=== PATIENT | female | born 1940 | race Two or more races ===

== ENCOUNTER → 2016-03-16 | Outpatient (CLI) | payer MEDICARE, MEDICAID ==
[~2016-03-16] MED LIST: DICY20TA66 PO; FUR40T GT; IBUP800T24 PO; LEVO88TA4 PO; LIDO5DIS21 TOP; LOSA50TA6 PO; METO-169 PO; OMEP20CA5 OR; POT20T PO; SIMV-8 PO
== END | disposition home or self-care (01) ==
LOC: Rad HDHVI 08:59
PROVIDERS: ATTEND Internal Medicine Cardiovascular Disease
DX: R06.02 Shortness of breath (principal)
CPT/HCPCS: 93306

== ENCOUNTER → 2016-03-26 | Outpatient (CLI) | payer MEDICARE, MEDICAID ==
[~2016-03-26] VITALS: Ht 152.4 cm; Wt 83.9 kg
[~2016-03-26] MED LIST changes: +ADENOSINE 70 MG in GIVE UN-DILUTED 0 ML IV ONE; +ADENOSINE 90 MG/30 ML INJ IV ONE
== END | disposition home or self-care (01) ==
LOC: Rad HDHVI 09:45
PROVIDERS: ATTEND Internal Medicine Cardiovascular Disease
DX: R07.9 Chest pain, unspecified (principal); I10 Essential (primary) hypertension; E78.00 Pure hypercholesterolemia, unspecified; Z95.0 Presence of cardiac pacemaker
CPT/HCPCS: 78452; 93005; 96374; 96375; A9500; J0153

== ENCOUNTER → 2016-05-14 | Outpatient (CLI) | payer MEDICARE, MEDICAID ==
[~2016-05-14] MED LIST changes: -ADENOSINE 70 MG in GIVE UN-DILUTED 0 ML IV ONE; -ADENOSINE 90 MG/30 ML INJ IV ONE
[2016-05-14 12:41] LABS: Basophils # (auto) 0 uL; Basophils % (auto) 0.7 % (0.0-2.0); DEFINITIVE VIEW TRANSMISSION; Eosinophils # (auto) 0.3 uL; Eosinophils % (auto) 5.6 % (0.0-7.0); Hematocrit 37.8 % (36.0-46.0); Hemoglobin 12.3 g/dL (12.2-16.2); Lymphocytes # (auto) 1.7 uL; Lymphocytes % (auto) 29.9 % (10.0-50.0); Mean Corpuscular Hemoglobin 33.6 pg (28.0-32.0); Mean Corpuscular Hgb Conc. 32.6 g/dL (32.0-36.0); Mean Corpuscular Volume 103.1 fL (80.0-100.0); Mean Platelet Volume 10.7 fL (7.4-10.4); Monocytes # (auto) 0.3 uL; Monocytes % (auto) 5.9 % (0.0-12.0); Neutrophils # (auto) 3.2 uL; Neutrophils % (auto) 57.9 % (37.0-80.0); Platelet Count (auto) 207 10^3/uL (140-450); Red Cell Distribution Width 13.3 % (11.6-16.0); White Blood Cell 5.6 10^3/uL (4.4-10.8)
[2016-05-14 12:48] LABS: Urine Bilirubin Negative (Negative); Urine Blood Negative /uL (Negative); Urine Color Yellow (Yellow); Urine Glucose Normal (Normal); Urine Ketone Negative (Negative); Urine Nitrite Negative (Negative); Urine Urobilinogen Normal (Negative); Urine pH 8.5 (5.0-8.0)
[2016-05-14 14:13] LABS: BUN/Creatinine Ratio 20.4; Bilirubin, Total 1.5 mg/dL (0.2-1.0); Calcium 9.4 mg/dL (8.5-10.1); Potassium 4.6 mmol/L (3.5-5.1); Total Protein 7.8 g/dL (6.4-8.2)
[2016-05-14 14:19] LABS: Bilirubin, Direct 0.3 mg/dL (0-0.2)
== END | disposition home or self-care (01) ==
LOC: LAB 08:47
PROVIDERS: ATTEND Internal Medicine Cardiovascular Disease
DX: I10 Essential (primary) hypertension (principal); E78.00 Pure hypercholesterolemia, unspecified; K74.1 Hepatic sclerosis; E11.9 Type 2 diabetes mellitus without complications; E03.9 Hypothyroidism, unspecified; D64.9 Anemia, unspecified; E55.9 Vitamin D deficiency, unspecified; N39.0 Urinary tract infection, site not specified
CPT/HCPCS: 36415; 80048; 80061; 80076; 81003; 82306; 83036; 84443; 85025

== ENCOUNTER → 2016-08-16 | Outpatient (CLI) | payer MEDICARE, MEDICAID ==
[~2016-08-16] VITALS: Ht 152.4 cm; Wt 89.8 kg
[~2016-08-16] MED LIST changes: -OMEP20CA5 OR; +OMEP20CA74 OR
== END | disposition home or self-care (01) ==
LOC: Rad HDHVI 12:53
PROVIDERS: ATTEND Internal Medicine Cardiovascular Disease
DX: I11.0 Hypertensive heart disease with heart failure (principal); I25.10 Atherosclerotic heart disease of native coronary artery without angina pectoris; I50.42 Chronic combined systolic (congestive) and diastolic (congestive) heart failure; E78.00 Pure hypercholesterolemia, unspecified; E55.9 Vitamin D deficiency, unspecified; Z95.0 Presence of cardiac pacemaker
CPT/HCPCS: 78472; 96374; A9505; 96375

== ENCOUNTER → 2016-09-27 | Outpatient (CLI) | payer MEDICARE, MEDICAID | END | disposition home or self-care (01) | LOC: Rad HDHVI 10:16 | PROVIDERS: ATTEND Internal Medicine Cardiovascular Disease | DX: I08.3 Combined rheumatic disorders of mitral, aortic and tricuspid valves (principal); E78.00 Pure hypercholesterolemia, unspecified; I25.5 Ischemic cardiomyopathy | CPT/HCPCS: 93306 ==

== ENCOUNTER → 2016-10-13 | Outpatient (CLI) | payer MEDICARE, MEDICAID ==
[2016-10-13 12:18] LABS: Urine Bilirubin Negative (Negative); Urine Blood Negative /uL (Negative); Urine Color Yellow (Yellow); Urine Glucose Normal (Normal); Urine Ketone Negative (Negative); Urine Nitrite Negative (Negative); Urine Urobilinogen Normal (Negative)
== END | disposition home or self-care (01) ==
LOC: LAB 10:57
PROVIDERS: ATTEND Internal Medicine Cardiovascular Disease
DX: N39.0 Urinary tract infection, site not specified (principal)
CPT/HCPCS: 81003; 87086; 87088; 87186

== ENCOUNTER → 2017-03-11 | Outpatient (CLI) | payer MEDICARE ==
[~2017-03-11] VITALS: Ht 154.9 cm; Wt 86.2 kg
[2017-03-11 12:32] LABS: Basophils # (auto) 0 uL; Eosinophils # (auto) 0.1 uL; Lymphocytes # (auto) 1.7 uL; Mean Corpuscular Hgb Conc. 33.3 g/dL (32.0-36.0); Mean Corpuscular Volume 101.9 fL (80.0-100.0); Monocytes # (auto) 0.4 uL; Neutrophils # (auto) 3.4 uL; Platelet Count (auto) 176 10^3/uL (140-450); Red Cell Distribution Width 12.8 % (11.8-14.3)
[2017-03-11 12:35] LABS: Basophils % (auto) 0.7 % (0.0-2.0); Eosinophils % (auto) 2.6 % (0.0-7.0); Hematocrit 37.7 % (36.0-46.0); Hemoglobin 12.6 g/dL (12.2-16.2); Lymphocytes % (auto) 29.6 % (10.0-50.0); Monocytes % (auto) 6.7 % (0.0-12.0); Neutrophils % (auto) 60.4 % (37.0-80.0); Nucleated Red Blood Cells % 0.2 %; White Blood Cell 5.6 10^3/uL (4.4-10.8)
[2017-03-11 12:59] LABS: Albumin 3.8 g/dL (3.4-5.0); BUN/Creatinine Ratio 26.3; Bilirubin, Total 1.5 mg/dL (0.2-1.0); Calcium 8.6 mg/dL (8.5-10.1); Potassium 4.1 mmol/L (3.5-5.1); Total Protein 7.3 g/dL (6.4-8.2)
== END | disposition home or self-care (01) ==
LOC: Rad HDHVI 07:47
PROVIDERS: ATTEND Internal Medicine Cardiovascular Disease
DX: I11.0 Hypertensive heart disease with heart failure (principal); I50.43 Acute on chronic combined systolic (congestive) and diastolic (congestive) heart failure; I42.0 Dilated cardiomyopathy; D64.9 Anemia, unspecified
CPT/HCPCS: 36415; 78472; 80053; 83880; 85025; 96374; A9505; 96375

== ENCOUNTER → 2017-04-14 | Outpatient (CLI) | payer MEDICARE ==
[~2017-04-14] MED LIST changes: +IOHEXOL 350 MG/ML 100ML IJ ONE
[2017-04-14 12:00] VITALS: BP 145/70
[2017-04-14 12:30] VITALS: BP 150/66
[2017-04-14 16:30] LABS: Urine Blood Negative /uL (Negative); Urine Specific Gravity 1.016 (1.001-1.035)
== END | disposition home or self-care (01) ==
LOC: Rad HDHVI 11:50
PROVIDERS: ATTEND Internal Medicine Cardiovascular Disease
DX: K80.80 Other cholelithiasis without obstruction (principal); N39.0 Urinary tract infection, site not specified; I51.7 Cardiomegaly; J98.11 Atelectasis; K76.0 Fatty (change of) liver, not elsewhere classified; K44.9 Diaphragmatic hernia without obstruction or gangrene; K57.30 Diverticulosis of large intestine without perforation or abscess without bleeding; M47.816 Spondylosis without myelopathy or radiculopathy, lumbar region; Z95.0 Presence of cardiac pacemaker; Z90.710 Acquired absence of both cervix and uterus
CPT/HCPCS: 74177; 81003; 82565; 87086; 87088; 87186; 96374; G0463; Q9967

== ENCOUNTER → 2018-03-13 | Outpatient (CLI) | payer MEDICARE ==
[~2018-03-13] MED LIST changes: +ALBUAER3 IN; +ASPI81TA27 PO; +CHOL50007 PO; +FLUT1SPR5; -FUR40T GT; +FUR40T PO; +HYDR-4683 PO; -IOHEXOL 350 MG/ML 100ML IJ ONE; -LIDO5DIS21 TOP; +LOSA-46 PO; -LOSA50TA6 PO; +OXYB5TAB24 PO; +RANI-185 PO
== END | disposition home or self-care (01) ==
LOC: Rad HDHVI 11:20
PROVIDERS: ATTEND Internal Medicine Cardiovascular Disease
DX: I67.2 Cerebral atherosclerosis (principal)
CPT/HCPCS: 70450

== ENCOUNTER → 2018-05-01 | Outpatient (CLI) | payer MEDICARE ==
[2018-05-01 11:40] VITALS: BP 127/57
--- NOTE | 2018-05-01 11:40 | NUR ---
CHF PT ARRIVED AT [facility] ALERT ORIENTED 0 DISTRESS VS OBTAINED
--- NOTE | 2018-05-01 11:45 | NUR ---
Pre-Op Discharge Summary: See e-MAR for any medications given for this visit. Pre-op orders received and carried out per MD THOMPSON of EKG, LABS and chest xrays. Patient given a copy of EKG with instructions to go to [facility] out patient for further follow up care.
[2018-05-01 12:05] VITALS: BP 116/54
[2018-05-01 12:23] LABS: Potassium 4.1 mmol/L (3.5-5.1)
[2018-05-01 12:30] LABS: BUN/Creatinine Ratio 21.3; Calcium 8.6 mg/dL (8.5-10.1); INR 0.97 (0.9-1.15); Partial Thromboplastin Time 25.2 sec (23.78-33.04); Prothrombin Time 10.4 sec (9.27-12.13)
[2018-05-01 16:50] LABS: Basophils # (auto) 0 uL; Basophils % (auto) 0.7 % (0.0-2.0); Eosinophils # (auto) 0.2 uL; Eosinophils % (auto) 3.7 % (0.0-7.0); Hematocrit 39.7 % (36.0-46.0); Hemoglobin 13.1 g/dL (12.2-16.2); Lymphocytes # (auto) 1.4 uL; Lymphocytes % (auto) 25.9 % (10.0-50.0); Mean Corpuscular Hemoglobin 34.9 pg (28.0-32.0); Mean Corpuscular Hgb Conc. 32.9 g/dL (32.0-36.0); Mean Corpuscular Volume 106.1 fL (80.0-100.0); Monocytes # (auto) 0.4 uL; Monocytes % (auto) 6.8 % (0.0-12.0); Neutrophils # (auto) 3.5 uL; Neutrophils % (auto) 62.9 % (37.0-80.0); Nucleated Red Blood Cells % 0.4 %; Platelet Count (auto) 180 10^3/uL (140-450); Red Blood Cells 3.74 10^6/uL (4.0-5.20); Red Cell Distribution Width 13.3 % (11.8-14.3); White Blood Cell 5.5 10^3/uL (4.4-10.8)
== END | disposition home or self-care (01) ==
LOC: Rad HDHVI 09:57
PROVIDERS: ATTEND Internal Medicine Cardiovascular Disease
DX: Z01.818 Encounter for other preprocedural examination (principal); I11.0 Hypertensive heart disease with heart failure; I50.9 Heart failure, unspecified; D64.9 Anemia, unspecified; R79.1 Abnormal coagulation profile; I42.0 Dilated cardiomyopathy
CPT/HCPCS: 36415; 71046; 80048; 85025; 85610; 85730; 93005; G0463

== ENCOUNTER → 2018-05-12 | Outpatient (CLI) | payer MEDICARE, MEDICAID ==
[2018-05-12 12:00] VITALS: BP 110/64
[2018-05-12 12:27] VITALS: BP 112/50
--- NOTE | 2018-05-12 12:27 | NUR ---
CHF CLINIC Discharge Instructions See e-MAR for any mediations given with this visit. Patient education given on disease process. Patient verbalized understanding. Previous labs reviewed. Patient discharged in stable condition with after care instructions and follow up appointment. NOTE 6MWT DONE AND RESULTS GIVEN TO DR THOMPSON.
== END | disposition home or self-care (01) ==
LOC: CHF HDHVI 11:58
PROVIDERS: ATTEND Internal Medicine Cardiovascular Disease
DX: R06.02 Shortness of breath (principal); R42 Dizziness and giddiness
CPT/HCPCS: 94618; G0463

== ENCOUNTER → 2018-05-19 | Outpatient (CLI) | payer MEDICARE, MEDICAID | END | disposition home or self-care (01) | LOC: Rad HDHVI 10:02 | PROVIDERS: ATTEND Internal Medicine Cardiovascular Disease | DX: I42.0 Dilated cardiomyopathy (principal); I11.0 Hypertensive heart disease with heart failure; I50.23 Acute on chronic systolic (congestive) heart failure | CPT/HCPCS: 93306 ==

== ENCOUNTER → 2018-12-18 | Outpatient (CLI) | payer MEDICARE, MEDICAID ==
[~2018-12-18] MED LIST changes: +ASPI-404 PO; -ASPI81TA27 PO; -HYDR-4683 PO; +HYDR-4833 PO; -LOSA-46 PO; +LOSA-69 PO
[2018-12-18 15:57] LABS: Urine Blood Negative /uL (Negative); Urine Specific Gravity 1.005 (1.001-1.035)
== END | disposition home or self-care (01) ==
LOC: LAB 11:28
PROVIDERS: ATTEND Internal Medicine Cardiovascular Disease
DX: N39.0 Urinary tract infection, site not specified (principal)
CPT/HCPCS: 81003; 87086

== ENCOUNTER → 2018-12-19 | Outpatient (CLI) | payer MEDICARE, MEDICAID ==
[2018-12-19 12:12] LABS: Basophils # (auto) 0 uL; Eosinophils # (auto) 0.1 uL; Monocytes # (auto) 0.4 uL; Neutrophils # (auto) 4.8 uL
[2018-12-19 12:15] LABS: Basophils % (auto) 0.6 % (0.0-2.0); Hemoglobin 12.5 g/dL (12.2-16.2); Lymphocytes # (auto) 1.4 uL; Lymphocytes % (auto) 20.8 % (10.0-50.0); Mean Corpuscular Hemoglobin 34.9 pg (28.0-32.0); Mean Corpuscular Hgb Conc. 32.8 g/dL (32.0-36.0); Mean Corpuscular Volume 106.3 fL (80.0-100.0); Monocytes % (auto) 6.2 % (0.0-12.0); Neutrophils % (auto) 70.4 % (37.0-80.0); Nucleated Red Blood Cells % 0.1 %; Platelet Count (auto) 156 10^3/uL (140-450); Red Blood Cells 3.58 10^6/uL (4.0-5.20); Red Cell Distribution Width 12.4 % (11.8-14.3); White Blood Cell 6.9 10^3/uL (4.4-10.8)
[2018-12-19 12:26] LABS: Potassium 4.5 mmol/L (3.5-5.1)
[2018-12-19 12:28] LABS: Free T4 (Free Thyroxine) 1.24 ng/dL (0.89-1.76)
[2018-12-19 12:35] LABS: Albumin 3.6 g/dL (3.4-5.0); BUN/Creatinine Ratio 16.7; Bilirubin, Total 1.1 mg/dL (0.2-1.0); Calcium 8.8 mg/dL (8.5-10.1); Total Protein 7.4 g/dL (6.4-8.2)
== END | disposition home or self-care (01) ==
LOC: Rad HDHVI 07:54
PROVIDERS: ATTEND Internal Medicine Cardiovascular Disease
DX: I08.3 Combined rheumatic disorders of mitral, aortic and tricuspid valves (principal); E03.9 Hypothyroidism, unspecified; K90.9 Intestinal malabsorption, unspecified; D51.9 Vitamin B12 deficiency anemia, unspecified; I11.0 Hypertensive heart disease with heart failure; I50.23 Acute on chronic systolic (congestive) heart failure; I42.9 Cardiomyopathy, unspecified; Z79.899 Other long term (current) drug therapy
CPT/HCPCS: 36415; 80053; 80061; 82306; 82607; 83036; 84439; 84443; 85025; 93306

== ENCOUNTER → 2019-01-01 | Outpatient (CLI) | payer MEDICARE, MEDICAID | END | disposition home or self-care (01) | LOC: Rad HDHVI 11:34 | PROVIDERS: ATTEND Internal Medicine Cardiovascular Disease | DX: G45.9 Transient cerebral ischemic attack, unspecified (principal); I99.8 Other disorder of circulatory system | CPT/HCPCS: 70450 ==

== ENCOUNTER → 2019-01-03 | Outpatient (CLI) | payer MEDICARE, MEDICAID | END | disposition home or self-care (01) | LOC: Rad HDHVI 08:00 | PROVIDERS: ATTEND Internal Medicine Cardiovascular Disease | DX: I11.0 Hypertensive heart disease with heart failure (principal); I50.32 Chronic diastolic (congestive) heart failure; R00.2 Palpitations; E11.9 Type 2 diabetes mellitus without complications; E78.5 Hyperlipidemia, unspecified; Z90.710 Acquired absence of both cervix and uterus; Z88.5 Allergy status to narcotic agent; Z88.0 Allergy status to penicillin | CPT/HCPCS: 93880 ==

== ENCOUNTER → 2019-03-16 | Outpatient (CLI) | payer MEDICARE, MEDICAID | END | disposition home or self-care (01) | LOC: LAB 12:04 | PROVIDERS: ATTEND Internal Medicine Cardiovascular Disease | DX: R70.0 Elevated erythrocyte sedimentation rate (principal) | CPT/HCPCS: 36415; 85652 ==

== ENCOUNTER → 2019-03-23 | Outpatient (CLI) | payer MEDICARE, MEDICAID ==
[2019-03-23 16:03] LABS: Calcium 9.3 mg/dL (8.5-10.1)
[2019-03-23 16:06] LABS: BUN/Creatinine Ratio 22.2
== END | disposition home or self-care (01) ==
LOC: LAB 13:27
PROVIDERS: ATTEND Internal Medicine Cardiovascular Disease
DX: I10 Essential (primary) hypertension (principal)
CPT/HCPCS: 36415; 80048

== ENCOUNTER 2019-04-21 21:01 | Emergency (ER) | payer MEDICARE, MEDICAID ==
[~2019-04-21] VITALS: Ht 152.4 cm; Wt 83.9 kg
[~2019-04-21 21:01] MED LIST changes: +MAGN400T40 PO; +SACU1TAB PO; +SPIR25TA8 PO
[2019-04-21 22:24] LABS: Basophils # (auto) 0.1 uL; Eosinophils # (auto) 0.1 uL; Eosinophils % (auto) 1.5 % (0.0-7.0); Hematocrit 36.4 % (36.0-46.0); Hemoglobin 12.5 g/dL (12.2-16.2); Lymphocytes # (auto) 1.7 uL; Lymphocytes % (auto) 23.1 % (10.0-50.0); Mean Corpuscular Hemoglobin 35.3 pg (28.0-32.0); Mean Corpuscular Hgb Conc. 34.2 g/dL (32.0-36.0); Mean Corpuscular Volume 103.2 fL (80.0-100.0); Monocytes # (auto) 0.6 uL; Monocytes % (auto) 8.2 % (0.0-12.0); Neutrophils # (auto) 4.8 uL; Neutrophils % (auto) 66.2 % (37.0-80.0); Platelet Count (auto) 204 10^3/uL (140-450); Red Blood Cells 3.53 10^6/uL (4.0-5.20); Red Cell Distribution Width 12.6 % (11.8-14.3); White Blood Cell 7.2 10^3/uL (4.4-10.8)
[2019-04-21 22:39] LABS: INR 1.06 (0.9-1.15); Partial Thromboplastin Time 24.7 sec (23.64-32.05)
[2019-04-21 22:55] LABS: Albumin 3.9 g/dL (3.4-5.0); Anion Gap 7 (5-15); Blood Urea Nitrogen 23 mg/dL (7-18); Calcium 8.6 mg/dL (8.5-10.1); Carbon Dioxide 26 mmol/L (21-32); Chloride 103 mmol/L (98-107); Glucose 105 mg/dL (74-106); Magnesium 2.3 mg/dL (1.6-2.6); Potassium 4.5 mmol/L (3.5-5.1); Sodium 136 mmol/L (136-145)
[2019-04-21 22:56] LABS: Alanine Aminotransferase 24 U/L (13-56); Aspartate Aminotransferase 24 U/L (15-37); BUN/Creatinine Ratio 18.3; GFR African American 53 mL/min; GFR Non-African American 44 mL/min
[2019-04-21 23:13] LABS: Alkaline Phosphatase 76 U/L (45-117); Bilirubin, Total 1.1 mg/dL (0.2-1.0); Total Protein 7.5 g/dL (6.4-8.2)
[2019-04-22 10:34] VITALS: BP 107/51
== END 2019-04-22 10:36 | disposition home or self-care (01) ==
LOC: ER 21:03
DX: T82.199A Other mechanical complication of unspecified cardiac device, initial encounter (principal); I25.10 Atherosclerotic heart disease of native coronary artery without angina pectoris; R00.2 Palpitations; I11.0 Hypertensive heart disease with heart failure; I50.9 Heart failure, unspecified; E07.9 Disorder of thyroid, unspecified; E78.5 Hyperlipidemia, unspecified; Z88.5 Allergy status to narcotic agent; Z88.0 Allergy status to penicillin; Y83.9 Surgical procedure, unspecified as the cause of abnormal reaction of the patient, or of later complication, without mention of misadventure at the time of the procedure; Y92.89 Other specified places as the place of occurrence of the external cause
CPT/HCPCS: 36415; 71046; 80053; 83735; 83880; 84443; 84484; 85025; 85610; 85730; 93005

== ENCOUNTER 2019-05-19 10:09 | Inpatient (IN) | payer MEDICARE, MEDICAID ==
[~2019-05-19] VITALS: Ht 154.9 cm; Wt 88.2 kg
[~2019-05-19 10:09] MED LIST changes: -ASPI-404 PO; +ASPI-543 PO; +DICY20TA PO; -DICY20TA66 PO
[2019-05-19 10:43] LABS: Urine WBC None Seen /hpf (0 - 5)
[2019-05-19 10:53] LABS: Urine Bacteria NONE SEEN /hpf (None Seen); Urine Blood Negative /uL (Negative); Urine Specific Gravity 1.003 (1.001-1.035)
[2019-05-19 11:06] LABS: Basophils # (auto) 0.1 10 ^3/uL (0-0.2); Eosinophils # (auto) 0.1 10 ^3/uL (0-0.8); Mean Corpuscular Hgb Conc. 33.4 g/dL (32.0-36.0); Monocytes # (auto) 0.4 10 ^3/uL (0-1.3); Nucleated Red Blood Cells % 0.1 %
[2019-05-19 11:07] LABS: Eosinophils % (auto) 1.5 % (0.0-7.0); Hematocrit 35.9 % (36.0-46.0); Lymphocytes # (auto) 1.5 10 ^3/uL (0.4-5.4); Lymphocytes % (auto) 27.3 % (10.0-50.0); Mean Corpuscular Hemoglobin 34.5 pg (28.0-32.0); Mean Corpuscular Volume 103.1 fL (80.0-100.0); Neutrophils # (auto) 3.4 10 ^3/uL (1.6-8.6); Neutrophils % (auto) 63.2 % (37.0-80.0); Platelet Count (auto) 200 10^3/uL (140-450); Red Blood Cells 3.48 10^6/uL (4.0-5.20); Red Cell Distribution Width 12.7 % (11.8-14.3); White Blood Cell 5.4 10^3/uL (4.4-10.8)
[2019-05-19 11:22] LABS: INR 1.04 (0.9-1.15); Partial Thromboplastin Time 24.4 sec (23.64-32.05)
[2019-05-19 11:28] LABS: Albumin 3.8 g/dL (3.4-5.0); Anion Gap 5 (5-15); Blood Urea Nitrogen 6 mg/dL (7-18); Calcium 8.9 mg/dL (8.5-10.1); Carbon Dioxide 27 mmol/L (21-32); Chloride 108 mmol/L (98-107); Glucose 92 mg/dL (74-106); Potassium 4.2 mmol/L (3.5-5.1); Sodium 140 mmol/L (136-145)
[2019-05-19 11:34] LABS: Alanine Aminotransferase 23 U/L (13-56); Alkaline Phosphatase 67 U/L (45-117); Aspartate Aminotransferase 20 U/L (15-37); BUN/Creatinine Ratio 7.1; GFR African American 85 mL/min; GFR Non-African American 70 mL/min; Total Protein 7.1 g/dL (6.4-8.2)
[2019-05-19] MEDS ORDERED: FUROSEMIDE 20 MG/2 ML VIAL IV ONE (12:45)
[2019-05-19] MEDS ORDERED: NITROGLYCERIN 0.4 MG SL TAB SL PRN (18:15)
[2019-05-19] MEDS ORDERED: FUROSEMIDE 40 MG/4 ML VIAL IV ONE (18:15)
[2019-05-19] MEDS ORDERED: MORPHINE SULF INJ 2 MG/ML SYRINGE 1ML IV PRN (18:15)
[2019-05-19 20:27] VITALS: BP 113/56
--- NOTE | 2019-05-19 20:27 | NUR ---
Telemetry admit from ER JONG BAKER admitted to Telemetry unit, oriented to LOLITA NEWELL, RN primary RN, unit, room, bed, and unit policies regarding patient care and visiting hours. Patient now on continuous telemetry monitoring, tele box # 35 and telemetry reading on arrival to unit is sinus tachycardia at 112 beats per minute. Patient placed on bedside oxygen at 2.0 liters via nasal cannula, weighed by bedscale and encouraged to call if they need something. All questions and concerns addressed, patient verbalized understanding. Bed in lowest locked position, side rails up x2, call light within reach, bed alarm on. Will round every hour and as needed and continue to monitor.
--- NOTE | 2019-05-19 20:30 | NUR ---
Copy of card for patient's implantable cardioverter defibrillator placed in front of patient's hard chart. Copy of card for patient's lens implants placed in hard chart per patient's request.
--- NOTE | 2019-05-19 21:00 | NUR ---
Nasal MRSA swab collected and sent to lab. Patient tolerated well. Will continue care.
[2019-05-19 21:56] VITALS: BP 113/50
[2019-05-19] MEDS ORDERED: HYDROcodone-ACET 5/325MG TAB PO PRN (22:00)
--- NOTE | 2019-05-19 23:00 | NUR ---
Patient reporting anxiety over ordered 22:00 blood pressure medications with current blood pressure and heart rate. Patient educated on ordered medications including side effects, patient verbalized understanding. Patient agreed to take ordered Potassium, Metoprolol, Oxybutynin, and Atorvastatin. All other ordered 22:00 medications held at this time. Will continue to monitor.
[2019-05-19] MEDS: LOSARTAN POTASSIUM 50 MG TAB PO SCH (23:04)
[2019-05-19] MEDS: OXYBUTYNIN CHL 5 MG TAB PO SCH (23:06)
[2019-05-19] MEDS: SACUBITRIL-VALSARTAN 24mg/26mg TAB PO SCH (23:06)
[2019-05-19] MEDS: POTASSIUM CHL 20 Meq TABLET PO SCH (23:07)
[2019-05-19] MEDS: ATORVASTATIN 20 MG TAB PO SCH (23:07)
[2019-05-19] MEDS: METOPROLOL SUCCINATE XL 50 MG TAB PO SCH (23:08)
[2019-05-20] VITALS (10 sets, daily range): BP systolic 82–135; BP diastolic 48–75
--- NOTE | 2019-05-20 00:56 | NUR ---
Notified by auto transmission technician that patient had converted to a "possible WAP" before converting back to sinus rhythm. Patient assessed and reported that she had "felt [her] heart go faster and it felt heavy for a little bit" but that her heart was "slowing down now". EKG performed, machine reading "atrial-sensed ventricular-paced rhythm" at 63 beats per minute. All vitals signs within normal limits. Dr. Hines notified, awaiting return call at this time. No s/s of distress, will continue to monitor. Addendum: 05/20/19 at 0312 by LOLITA NEWELL RN RN ADDITION: EKG and telemetry stip placed in hard chart for .
--- NOTE | 2019-05-20 02:06 | NUR ---
Dr. Hines returned call, no new orders at this time. Will continue care.
--- NOTE | 2019-05-20 06:30 | NUR ---
Patient's blood pressure noted to be 92/54 with 63 heart rate during 05:00 vital sign check. Patient repositioned, blood pressure 96/44 with 62 heart rate. Will endorse to dayshift RN and continue to monitor.
--- NOTE | 2019-05-20 07:30 | NUR ---
Closing Note Patient lying in bed, awake and alert. No s/s of distress. Bed in lowest locked position, side rails up x2, call light within reach. Care endorsed to dayshift RN.
--- NOTE | 2019-05-20 08:33 | NUR ---
PAGED DR THOMPSON. PATIENT IS HYPOTENSIVE, BP 87/51 AND SYMPTOMATIC WITH FEELING LIGHT HEADED.
--- NOTE | 2019-05-20 09:00 | NUR ---
LEFT VOICE MESSAGE FOR DR THOMPSON REGARDING PATIENTS BP.
--- NOTE | 2019-05-20 09:49 | NUR ---
DR THOMPSON AWARE OF PATIENTS BP. CHARGE NURSE AND HOUSE SUP ALSO AWARE. 250ML BOLUS GIVEN, ADDITIONAL ORDERS RECEIVED FROM DR THOMPSON AND CARRIED OUT. WILL CONTINUE TO MONITOR PATIENT
[2019-05-20] MEDS: POTASSIUM CHL 20 Meq TABLET PO SCH ×2 (10:00→21:59)
[2019-05-20] MEDS: METOPROLOL SUCCINATE XL 50 MG TAB PO SCH ×2 (10:00→21:57)
[2019-05-20] MEDS ORDERED: LEVOTHYROXINE SODIUM 88 MCG TAB PO SCH (10:00)
[2019-05-20] MEDS: SACUBITRIL-VALSARTAN 24mg/26mg TAB PO SCH ×2 (10:00→21:57)
[2019-05-20] MEDS: LOSARTAN POTASSIUM 50 MG TAB PO SCH ×2 (10:00→21:57)
[2019-05-20] MEDS: FUROSEMIDE 40 MG/4 ML VIAL IV SCH ×2 (10:00→21:57)
[2019-05-20] MEDS: SPIRONOLACTONE 25 MG TAB PO SCH (10:00)
--- NOTE | 2019-05-20 11:15 | NUR ---
INFORMED DR THOMPSON PATIENTS BP IS 88/55. NO NEW ORDERS GIVEN PATIENT IS NOW ASYMPTOMATIC. WILL CONTINUE TO MONITOR PATIENT
[2019-05-20] MEDS: OXYBUTYNIN CHL 5 MG TAB PO SCH ×2 (11:25→22:03)
[2019-05-20] MEDS: MAGNESIUM OXIDE 400 MG TAB PO SCH (11:25)
[2019-05-20] MEDS: FAMOTIDINE 20 MG TAB PO SCH (11:26)
--- NOTE | 2019-05-20 15:17 | NUR ---
PATIENT COMPLAINING OF HEADACHE BUT HAD NOT MEDICATION. DR. THOMPSON CONTACTED. NEW ORDER FOR TYLENOL 650MG QID PRN MADE.
[2019-05-20] MEDS: ACETAMINOPHEN 325 MG TAB PO PRN (17:30)
--- NOTE | 2019-05-20 19:30 | NUR ---
Opening Shift Note Assumed care of patient, awake and alert. No S/S of distress/SOB or pain. Bed in lowest locked position, side rails up x2, call light within reach. Instructed on POC and to call for assist PRN, will continue to monitor for changes Q1hr and PRN.
[2019-05-20] MEDS: ATORVASTATIN 20 MG TAB PO SCH (22:03)
[2019-05-21] VITALS (7 sets, daily range): BP systolic 94–109; BP diastolic 46–67
[2019-05-21] MEDS: ACETAMINOPHEN 325 MG TAB PO PRN (03:24)
--- NOTE | 2019-05-21 03:24 | NUR ---
PAIN PATIENT REPORTS HEADACHE AND RATES PAIN 5/10 ON NUMERIC SCALE PATIENT REQUESTED TO HAVE A TYLENOL FOR HER HEADACHE TYLENOL ADMINISTERED WILL PRIMARY RN ON LUNCH SEE EMAR FOR DETAILS
--- NOTE | 2019-05-21 04:21 | NUR ---
Patient lying in bed, awake and alert, reports pain is tolerable. No s/s of distress. Will continue to monitor.
--- NOTE | 2019-05-21 08:15 | NUR ---
Opening Shift Note Assumed care of patient, awake and alert. No S/S of distress/SOB or pain. Instructed on POC and to call for assist PRN, will continue to monitor for changes Q1hr and PRN. Fall precautions in place per safety protocol.
[2019-05-21] MEDS: MAGNESIUM OXIDE 400 MG TAB PO SCH (09:34)
[2019-05-21] MEDS: POTASSIUM CHL 20 Meq TABLET PO SCH ×2 (09:34→22:25)
[2019-05-21] MEDS: FAMOTIDINE 20 MG TAB PO SCH (09:35)
[2019-05-21] MEDS: OXYBUTYNIN CHL 5 MG TAB PO SCH ×2 (09:35→22:25)
[2019-05-21] MEDS: SPIRONOLACTONE 25 MG TAB PO SCH (09:35)
[2019-05-21] MEDS: SACUBITRIL-VALSARTAN 24mg/26mg TAB PO SCH (09:36)
[2019-05-21] MEDS: LOSARTAN POTASSIUM 50 MG TAB PO SCH (09:36)
[2019-05-21] MEDS: FUROSEMIDE 40 MG/4 ML VIAL IV SCH (09:36)
[2019-05-21] MEDS: METOPROLOL SUCCINATE XL 50 MG TAB PO SCH ×2 (09:37→22:00)
[2019-05-21] MEDS ORDERED: SACUBITRIL-VALSARTAN 24mg/26mg TAB PO SCH (13:15)
--- NOTE | 2019-05-21 14:03 | NUR ---
Patient feeling lightheaded, BP checked and resulted in 88/45 with a heart rate of 66 placed patient on Trendelenburg and reassessed BP with a result of 91-51 HR 67. Patient still feeling Lightheaded despite position change. A third BP Check was done, showing a reading of 89/53 with HR of 67. Contacted MD Hines, awaiting call back at this time. Will cont to monitor patient.
--- NOTE | 2019-05-21 14:30 | NUR ---
Hospitalist at bedside MD Hines at bedside aware of patient status. MD Hines adjusted medications. Received orders from MD Hines to bolus 250ml's for patients BP. Will carry our new orders and will cont to monitor patient.
--- NOTE | 2019-05-21 15:30 | NUR ---
Patients BP after 250 Bolus NS is 94/67 HR 69. Patient now asymptomatic. Will cont to monitor patient.
--- NOTE | 2019-05-21 19:13 | NUR ---
ENDORSED REPORT TO NIGHT RN HECTOR. PATIENT RESTING IN BED, NO DISTRESS, SOB, OR PAIN NOTED AT THIS TIME.
--- NOTE | 2019-05-21 19:55 | NUR ---
Opening Shift Note Assumed care of patient, awake and alert. No S/S of distress/SOB or pain. b/p 99/51 heart rate 65, o2 saturation via n/c 96 at 1L. Instructed on POC and to call for assist PRN, will continue to monitor for changes Q1hr and PRN. bed in low position and call light within reach bed alarm on.
--- NOTE | 2019-05-21 20:17 | NUR ---
SBAR REPORT GIVEN TO MD THOMPSON. NEW ORDERS RECEIVED TO GIVE AMIODARONE 400MG PO BID AND HOLD METOPROLOL ORDERS READ BACK AND VERIFIED BY .
--- NOTE | 2019-05-21 21:52 | NUR ---
HEART RATE NOTIFIED BY [facility] PATIENT HEART RATE WAS IN THE 140'S. PATIENT VS 107/ 46, HEART RATE 143, O2 SATURATION 96% VIA NC AT 2L. PATIENT RR 18. PATIENT REPORTS PRESSURE ON CHEST SINCE 1400. EKG DONE AND PLACED ON CHART. HOSPITALIST SIGNED EKG. DONNA PAGED AWAITING CALL BACK.
--- NOTE | 2019-05-21 22:17 | NUR ---
PAGED AGAIN. LEFT MESSAGE TO ALESSIA THOMPSON ANSWERING MACHINE.
[2019-05-21] MEDS: AMIODARONE HCL 200 MG TAB PO SCH (22:27)
--- NOTE | 2019-05-21 23:41 | NUR ---
PATIENT HEART RATE 140' BPM DENIES SOB/DISTRESS OR PAIN. MD THOMPSON NOTIFIED AWAITING CALL BACK.
--- NOTE | 2019-05-21 23:56 | NUR ---
NEW ORDERS RECEIVED FROM MD THOMPSON 400 MG AMIODARONE PO. ORDERS READ BACK AND VERIFIED BY
[2019-05-22] MEDS ORDERED: AMIODARONE HCL 200 MG TAB PO ONE (00:15)
[2019-05-22] MEDS: ACETAMINOPHEN 325 MG TAB PO PRN ×3 (00:53→22:10)
--- NOTE | 2019-05-22 00:53 | NUR ---
PATIENT REPORTS HEADACHE 3/10 PAIN ACHING NON RADIATING. PATIENT REQUESTED TYLENOL. WILL MEDICATE PER PROTOCOL
--- NOTE | 2019-05-22 01:53 | NUR ---
PAIN REASSESSMENT PATIENT IS SLEEPING RR 16 SHOWS NO SIGNS OF DISTRESS/SOB OR PAIN.
--- NOTE | 2019-05-22 01:54 | NUR ---
INFORMED MD THOMPSON PATIENT IS CURRENTLY RUNNING 132 BPM. NO NEW ORDERS RECEIVED. ORDERS READ BACK AND VERIFIED.
--- NOTE | 2019-05-22 03:01 | NUR ---
patient running sr at 62bpm. rr 18 patient sleeping.
--- NOTE | 2019-05-22 04:30 | NUR ---
patient blood pressure 85/47 denies sob distress or pain. md salmeron paged. awaiting call back.
[2019-05-22 05:00] VITALS: BP 84/48
--- NOTE | 2019-05-22 05:31 | NUR ---
blood pressure recheck 99/40 hr 64. patient assisted onto the bedpan. no bm.
--- NOTE | 2019-05-22 06:44 | NUR ---
patient assisted to use bedpan. patient had bm. patient reposition to comfort. shows no signs of distress pain or sob. bed in low position call light within reach. bed alarm on
--- NOTE | 2019-05-22 07:16 | NUR ---
REPORT GIVEN TO GIL. ENDORSE CARE TO [place] RN OF RECENT B/P / AND NO CALL BACK FROM MD THOMPSON. PATIENT DENIES SOB DISTRESS OR PAIN.
--- NOTE | 2019-05-22 07:45 | NUR ---
OPENING SHIFT NOTE: PATIENT AWAKE, ALERT AND ORIENTED X4. PATIENT STILL REPORTS LIGHTHEADEDNESS. NO C/O PAIN AT THIS TIME. RESPIRATIONS EVEN AND UNLABORED. GAYTAN HUNG BELOW BLADDER, FREE OF KINKS. UPDATED ON PLAN OF CARE, PATIENT VERBALIZED UNDERSTANDING. CALL LIGHT WITHIN REACH. FALL PRECAUTIONS IN PLACE. WILL CONTINUE TO MONITOR.
[2019-05-22 09:00] VITALS: BP 89/58
[2019-05-22] MEDS: AMIODARONE HCL 200 MG TAB PO SCH ×2 (09:41→15:16)
--- NOTE | 2019-05-22 11:24 | NUR ---
RESPIRATORY SAMPLE SENT TO LAB.
[2019-05-22 12:21] VITALS: BP 90/55
--- NOTE | 2019-05-22 15:00 | NUR ---
PATIENT UP AMBULATING IN UNIT. Addendum: 05/22/19 at 1529 by ILEANA MUNGUIA RN RN WITH MEG MELTON AND LYLE.
--- NOTE | 2019-05-22 15:17 | NUR ---
CORDARONE: MD THOMPSON ORDER FOR CORDARONE CHANGED TO DAILY. 400MG PO GIVEN AT 0941, CHANGE MADE FOR DAILY STARTING AT 1445. NON-ADMINISTERED DUE TO DOSE GIVEN THIS MORNING.
--- NOTE | 2019-05-22 15:36 | NUR ---
HEADACHE: PATIENT REPORTING HEADACHE 3/10 AFTER AMBULATION ACTIVITY. TYLENOL ADMINISTERED ORDERED.
--- NOTE | 2019-05-22 15:55 | NUR ---
FORGETFUL: PATIENT ASKED THIS RN 3 SEPARATE TIMES THIS SHIFT, "SO SHOULD I DRINK MORE WATER?" EDUCATED PATIENT ON FLUID OVERLOAD AND NEED FOR RESTRICTING FLUID. UNABLE TO COMPREHEND AT THIS TIME. CONTRACT OFFICER MADE AWARE TO LIMIT AMOUNT OF FREE WATER PATIENT KEEPS REQUESTING.
[2019-05-22 16:25] VITALS: BP 89/55
--- NOTE | 2019-05-22 19:22 | NUR ---
CARE ENDORSED TO BRITTANY ELKINS.
--- NOTE | 2019-05-22 19:40 | NUR ---
PATIENT REPORTS FEELING "LIGHT HEADED" AND "TIRED", REQUESTING VITALS TO BE TAKEN. PATIENT IS CONCERNED HER BLOOD PRESSURE MAY BE LOW. VITALS TAKEN AND ARE FOLLOWS; BP 100/52, HR 69, 02 SAT 99-100% ON 3LNC. DENIES PAIN AT THIS TIME. ELEVATED PATIENTS LEGS AND PLACED BED ALARM ON FOR PATIENT SAFETY. ENCOURAGED PATIENT TO CALL FOR ASSIST IF SHE FEELS ANY WORSENING OF SYMPTOMS.
[2019-05-22 22:00] VITALS: BP 102/57
--- NOTE | 2019-05-22 22:10 | NUR ---
HEADACHE PATIENT REPORTING HEADACHE, PAIN RATED 3/10. PATIENT GIVEN PRN TYLENOL ORDERED FOR MILD PAIN.
[2019-05-23 05:00] VITALS: BP 110/59
[2019-05-23 05:48] LABS: Basophils # (auto) 0 10 ^3/uL (0-0.2); Eosinophils # (auto) 0.4 10 ^3/uL (0-0.8); Hemoglobin 10.8 g/dL (12.2-16.2); Lymphocytes # (auto) 1.3 10 ^3/uL (0.4-5.4); Monocytes # (auto) 0.4 10 ^3/uL (0-1.3); Platelet Count (auto) 154 10^3/uL (140-450)
[2019-05-23 05:51] LABS: Basophils % (auto) 0.6 % (0.0-2.0); Eosinophils % (auto) 6.8 % (0.0-7.0); Hematocrit 31.3 % (36.0-46.0); Mean Corpuscular Hemoglobin 35.2 pg (28.0-32.0); Mean Corpuscular Hgb Conc. 34.3 g/dL (32.0-36.0); Mean Corpuscular Volume 102.6 fL (80.0-100.0); Neutrophils # (auto) 4.2 10 ^3/uL (1.6-8.6); Neutrophils % (auto) 66.6 % (37.0-80.0); Nucleated Red Blood Cells % 0.1 %; Red Blood Cells 3.05 10^6/uL (4.0-5.20); Red Cell Distribution Width 12.6 % (11.8-14.3); White Blood Cell 6.4 10^3/uL (4.4-10.8)
[2019-05-23 06:20] LABS: BUN/Creatinine Ratio 19.5; Calcium 8.2 mg/dL (8.5-10.1); Potassium 4.3 mmol/L (3.5-5.1)
[2019-05-23] MEDS: ACETAMINOPHEN 325 MG TAB PO PRN ×3 (06:32→21:39)
--- NOTE | 2019-05-23 06:32 | NUR ---
HEADACHE PATIENT REPORTING HEADACHE, PAIN RATED 3/10. PATIENT GIVEN PRN TYLENOL ORDERED FOR MILD PAIN.
--- NOTE | 2019-05-23 07:45 | NUR ---
OPENING SHIFT NOTE: PATIENT AWAKE RESTING IN BED. PATIENT A/OX4 TIME UPDATED TO PATIENT AND RE-ORIENTED. PATIENT DENIES ANY PAIN OF DISCOMFORT AT THIS TIME. GAYTAN HUNG BELOW BLADDER FREE OF KINKS, TUBES, LINES, AND DRAINS POSITIONED OFF PATIENT SKIN. RESPIRATIONS EVEN AND UNLABORED. CALL LIGHT WITHIN REACH, WILL CONTINUE TO MONITOR.
--- NOTE | 2019-05-23 07:50 | NUR ---
PATIENT EXPRESSED NO RELIEF FROM TYLENOL. HEADACHE 6/10 IN THE LEFT SIDE OF THE NECK AND POSTERIOR/LATERAL HEAD, DULL AND SORE TO TOUCH. PATIENT GIVEN HEAT PACK FOR NECK, AND REQUESTING "SOMETHING STRONGER THAN TYLENOL." MD THOMPSON MADE AWARE.
[2019-05-23 09:00] VITALS: BP 95/59
[2019-05-23] MEDS ORDERED: HYDROcodone-ACET 5/325MG TAB PO PRN (09:45)
[2019-05-23] MEDS: DIGOXIN 0.125 MG TAB PO SCH (10:15)
[2019-05-23] MEDS: AMIODARONE HCL 200 MG TAB PO SCH (10:15)
--- NOTE | 2019-05-23 10:30 | NUR ---
NORCO: ORDER RECEIVED FROM MD THOMPSON FOR NORCO5/325, MODERATE PAIN, QID NEEDED. PATIENT GIVEN ORDERED.
[2019-05-23 13:00] VITALS: BP 102/58
--- NOTE | 2019-05-23 13:48 | NUR ---
NUTRITION ASSESSMENT NOTES Please refer to link notes of nutrition screen form filed under the intervention section of the plan of care for further details. Est. Energy Needs: 6266-9379 kcal (14-18 kcal/kg BW). Est. Protein Needs: 57-68 gms/day (1.0-1.2 gms/kg Adj.BW). Will continue to monitor pertinent labs and reassess nutrient need prn Addendum: 05/23/19 at [address] Amended: Links added.
--- NOTE | 2019-05-23 14:34 | NUR ---
THYROID MEDICATION: PATIENT BROUGHT UP TO THIS RN'S ATTENTION, "I HAVE NOT TAKEN MY THYROID MEDICATION." MD THOMPSON MADE AWARE.
--- NOTE | 2019-05-23 14:36 | NUR ---
assessment Patient is a 78 year old female who is alert and oriented. Patients cognitive abilities are intact. Prior to admission patient lived home with family and functioned with assistance. Per patient she will return home to her prior living arrangements post discharge and family will transport her home. Patient informed me she has a fww and 02 for home use. Patients PCP is Dr Hines. Patient informed me she is on service with [facility] [employer] prior to admission. Patient has no safety concerns regarding returning home on discharge. Patient will need a resumption order on discharge. I informed patient she has a right to speak to a director social welfare regarding all care. I informed patient she has a right to participate in any and all discharge planning. Patient does not have a POA and advanced directive. I have offered patient information on POA and advanced directives. I informed the patient the advantages and benefits of having an Advanced Directive. Patient verbalized understanding and agreed to discharge plan. Addendum: 05/23/19 at 1439 by Michelle DAILEY Amended: Links added.
[2019-05-23 17:00] VITALS: BP 106/68
--- NOTE | 2019-05-23 17:24 | NUR ---
RECEIVED ORDERS TO RE-START LEVOTHYROXINE FROM MD THOMPSON.
--- NOTE | 2019-05-23 19:19 | NUR ---
CARE ENDORSED TO BRITTANY ELKINS.
--- NOTE | 2019-05-23 20:20 | NUR ---
ENDORSED CARE TO NARCISA ELKINS. PATIENT RESTING WITH NO S/S OF DISTRESS NOTED.
--- NOTE | 2019-05-23 20:25 | NUR ---
Assumed care from BRITTNI Bravo. Patient alert/oriented and not in distress. Instructed on POC and to call for assist as needed. Safety measures ensured, bed alarm on, call light within reach, will continue to monitor
[2019-05-23 21:52] VITALS: BP 106/67
[2019-05-24 05:25] VITALS: BP 114/49
[2019-05-24] MEDS: ACETAMINOPHEN 325 MG TAB PO PRN ×3 (06:25→16:38)
[2019-05-24] MEDS: LEVOTHYROXINE SODIUM 88 MCG TAB PO SCH (06:26)
[2019-05-24 08:00] VITALS: BP 108/45
[2019-05-24] MEDS: AMIODARONE HCL 200 MG TAB PO SCH (09:41)
[2019-05-24] MEDS: DIGOXIN 0.125 MG TAB PO SCH (09:42)
[2019-05-24 12:00] VITALS: BP 117/57
[2019-05-24 17:00] VITALS: BP 111/53
--- NOTE | 2019-05-24 18:20 | NUR ---
Nielsen catheter dc'd Order to discontinue nielsen catheter. Nielsen dc'd with clean technique following deflation of balloon. Patient tolerated well with no complaints of pain. Continue care.
[2019-05-24 22:00] VITALS: BP 108/46
[2019-05-25] MEDS: ACETAMINOPHEN 325 MG TAB PO PRN ×2 (00:39→08:51)
[2019-05-25 05:00] VITALS: BP 121/72
--- NOTE | 2019-05-25 07:30 | NUR ---
Opening Shift Note Assumed care of patient, awake and alert. No S/S of distress/SOB or pain. Bed in lowest and locked position with side rails up x2 and call light with in reach. Instructed on POC and to call for assist PRN, will continue to monitor for changes Q1hr and PRN.
[2019-05-25 08:00] VITALS: BP 117/58
[2019-05-25] MEDS: LEVOTHYROXINE SODIUM 88 MCG TAB PO SCH (08:50)
[2019-05-25] MEDS: DIGOXIN 0.125 MG TAB PO SCH (10:51)
[2019-05-25] MEDS: AMIODARONE HCL 200 MG TAB PO SCH (10:52)
[2019-05-25 12:00] VITALS: BP 115/60
--- NOTE | 2019-05-25 15:36 | NUR ---
PAGED DR. THOMPSON. AWAITING CALL BACK.
--- NOTE | 2019-05-25 15:37 | NUR ---
SPOKE TO DR. THOMPSON. VERIFIED MEDICATIONS FOR PATIENT TO STOP TAKING AND NEW ORDERS RECEIVED, READ BACK AND VERIFIED FOR PRESCRIPTION TO CALL INTO PHARMACY.
--- NOTE | 2019-05-25 15:58 | NUR ---
SPOKE TO NICOLAS WITH SS. PER NICOLAS, HOME HEALTH WILL RESUME ONCE DISCHARGED.
[2019-05-25 16:00] VITALS: BP 115/60
--- NOTE | 2019-05-25 16:45 | NUR ---
PT RECEIVED PRESCRIPTION VIA [facility] AND RN.
[2019-05-25 17:00] VITALS: BP 113/70
--- NOTE | 2019-05-25 17:22 | NUR ---
Discharge instructions given as ordered. Encourage to follow up with PMD as instructed. All questions and concerns addressed. Patient verbalized understanding. Medication reconciliation form completed and copy given to patient. No Home medications held in Pharmacy. Pt refused vaccines.
--- NOTE | 2019-05-25 17:52 | NUR ---
IV removed with catheter intact, pressure dressing applied. Pt refusing to leave with oxygen. Pt stated "I don't use oxygen when I leave the house, I'm fine". Telemetry unit returned to ICU. Patient taken to vehicle via wheelchair with all personal belongings, accompanied by staff and family member. No distress noted at time of departure.
== END 2019-05-25 17:52 | disposition home health service (06) | DRG 871 ==
LOC: ER 10:09 → TELE 10:10 → TELE-CENTR 20:27
PROVIDERS: ADMIT Internal Medicine Cardiovascular Disease; ATTEND Internal Medicine Cardiovascular Disease
DX: A41.9 Sepsis, unspecified organism (principal); J18.9 Pneumonia, unspecified organism; I50.43 Acute on chronic combined systolic (congestive) and diastolic (congestive) heart failure; I11.0 Hypertensive heart disease with heart failure; I25.10 Atherosclerotic heart disease of native coronary artery without angina pectoris; R05 Cough; J44.9 Chronic obstructive pulmonary disease, unspecified; I95.9 Hypotension, unspecified; E03.9 Hypothyroidism, unspecified; I35.1 Nonrheumatic aortic (valve) insufficiency; E78.00 Pure hypercholesterolemia, unspecified; Z90.710 Acquired absence of both cervix and uterus; Z95.0 Presence of cardiac pacemaker; I25.2 Old myocardial infarction; Z88.5 Allergy status to narcotic agent; Z88.0 Allergy status to penicillin; Z80.8 Family history of malignant neoplasm of other organs or systems; Z83.3 Family history of diabetes mellitus; Z82.61 Family history of arthritis; Z82.5 Family history of asthma and other chronic lower respiratory diseases; Z84.89 Family history of other specified conditions; Z80.42 Family history of malignant neoplasm of prostate
CPT/HCPCS: 36415; 71045; 80048; 80053; 81001; 83880; 84484; 85025; 85610; 85730; 87070; 87081; 87205; 93005; 96374; 97163; G0378

== ENCOUNTER → 2019-05-29 | Outpatient (CLI) | payer MEDICARE, MEDICAID ==
[~2019-05-29] MED LIST changes: +ASPI-404 PO; -ASPI-543 PO; -DICY20TA PO; +DICY20TA66 PO
[2019-05-29 09:30] VITALS: BP 136/73
--- NOTE | 2019-05-29 09:30 | NUR ---
PT. TO [facility]F CLINIC FOR EKG AND LABS PER DR. THOMPSON BEFORE SCHEDULED PACEMAKER INTERROGATION. WITH COVID [address], THIS RN HAD CALLED PT. YESTERDAY TO TRIAGE PT'S NEED FOR LEAVING HOME. PT. STATED SHE HAS BEEN HAVING LABILE BLOOD PRESSURE ISSUES, WITH MANY OTHER C/O MOSTLY RELATED TO ANXIETY WITH COVID 19 STATUS. THIS RN SPOKE TO HER DAUGHTER WHO LIVES CLOSE BY, AND IT WAS DETERMINED TO HAVE PT. KEEP HER APPT. THIS AM, AND ALSO GET SOME LAB WORK DONE PER MD ORDER. EKG DONE SHOWING VENT. PACED RHYTHM AT 79 WITH 100% CAPTURE AND NO ECTOPY. NO ACUTE CHANGE NOTED.
--- NOTE | 2019-05-29 10:15 | NUR ---
LABS DRAWN AND SENT PER MD ORDER.
--- NOTE | 2019-05-29 10:45 | NUR ---
Discharge Instructions See e-MAR for any mediations given with this visit. Patient education given on disease process. Patient verbalized understanding. Previous labs reviewed. Patient discharged in stable condition with after care instructions and follow up appointment. PT. ASSISTED TO PACEMAKER ROOM WITH REPORT TO TECH. PT. INSTRUCTED THAT SHE WILL BE GIVEN TEXT NUMBER TOMORROW BY OUR STAFF FOR A TELE-MED FOLLOWUP APPT. WITH DR. THOMPSON ON TUESDAY FOR LAB RESULTS AND PACER INTERROGATION RESULTS. I SPOKE WITH DAUGHTER WHO WILL BE PT. AT TIME OF CALL TO ASSIST. PT. FOR ANY QUESTIONS. NAD AT TIME OF DISCHARGE.
[2019-05-29 10:50] VITALS: BP 134/72
[2019-05-29 11:51] LABS: Basophils # (auto) 0 10 ^3/uL (0-0.2); Monocytes # (auto) 0.4 10 ^3/uL (0-1.3); Neutrophils # (auto) 4.2 10 ^3/uL (1.6-8.6); Red Blood Cells 3.39 10^6/uL (4.0-5.20); White Blood Cell 5.4 10^3/uL (4.4-10.8)
[2019-05-29 11:54] LABS: Basophils % (auto) 0.9 % (0.0-2.0); Eosinophils # (auto) 0 10 ^3/uL (0-0.8); Eosinophils % (auto) 0.9 % (0.0-7.0); Lymphocytes # (auto) 0.7 10 ^3/uL (0.4-5.4); Lymphocytes % (auto) 13.5 % (10.0-50.0); Mean Corpuscular Hemoglobin 35.4 pg (28.0-32.0); Mean Corpuscular Hgb Conc. 34.3 g/dL (32.0-36.0); Mean Corpuscular Volume 103.2 fL (80.0-100.0); Monocytes % (auto) 7.3 % (0.0-12.0); Neutrophils % (auto) 77.4 % (37.0-80.0); Platelet Count (auto) 198 10^3/uL (140-450); Red Cell Distribution Width 12.7 % (11.8-14.3)
[2019-05-29 12:02] LABS: BUN/Creatinine Ratio 14.8; Magnesium 2.5 mg/dL (1.6-2.6)
== END | disposition home or self-care (01) ==
LOC: CHF HDHVI 10:03
PROVIDERS: ATTEND Internal Medicine Cardiovascular Disease
DX: I50.9 Heart failure, unspecified (principal); I25.10 Atherosclerotic heart disease of native coronary artery without angina pectoris; I47.1 Supraventricular tachycardia; Z79.899 Other long term (current) drug therapy
CPT/HCPCS: 36415; 80048; 83735; 85025; 93005; G0463

== ENCOUNTER → 2019-06-26 | Outpatient (CLI) | payer MEDICARE, MEDICAID | END | disposition home or self-care (01) | LOC: Rad HDHVI 10:09 | PROVIDERS: ATTEND Internal Medicine Cardiovascular Disease | DX: I67.2 Cerebral atherosclerosis (principal); R51 Headache | CPT/HCPCS: 70450 ==

== ENCOUNTER → 2019-07-18 | Outpatient (CLI) | payer MEDICARE, MEDICAID ==
[2019-07-18 11:59] LABS: Urine Blood Negative /uL (Negative); Urine Specific Gravity 1.006 (1.001-1.035)
[2019-07-18 12:03] LABS: Basophils # (auto) 0.1 10 ^3/uL (0-0.2); Basophils % (auto) 0.7 % (0.0-2.0); Eosinophils # (auto) 0.1 10 ^3/uL (0-0.8); Neutrophils # (auto) 6.4 10 ^3/uL (1.6-8.6); Red Cell Distribution Width 12.8 % (11.8-14.3); White Blood Cell 8.3 10^3/uL (4.4-10.8)
[2019-07-18 12:05] LABS: Eosinophils % (auto) 1.6 % (0.0-7.0); Hematocrit 38.7 % (36.0-46.0); Hemoglobin 13.2 g/dL (12.2-16.2); Lymphocytes # (auto) 1.2 10 ^3/uL (0.4-5.4); Lymphocytes % (auto) 14.6 % (10.0-50.0); Mean Corpuscular Hemoglobin 35.3 pg (28.0-32.0); Mean Corpuscular Hgb Conc. 34.1 g/dL (32.0-36.0); Mean Corpuscular Volume 103.5 fL (80.0-100.0); Monocytes # (auto) 0.5 10 ^3/uL (0-1.3); Monocytes % (auto) 5.5 % (0.0-12.0); Neutrophils % (auto) 77.6 % (37.0-80.0); Platelet Count (auto) 226 10^3/uL (140-450); Red Blood Cells 3.74 10^6/uL (4.0-5.20)
[2019-07-18 12:15] LABS: Potassium 3.6 mmol/L (3.5-5.1)
[2019-07-18 12:21] LABS: Albumin 3.6 g/dL (3.4-5.0); BUN/Creatinine Ratio 11.6; Bilirubin, Total 1.3 mg/dL (0.2-1.0); Calcium 8.8 mg/dL (8.5-10.1); Magnesium 2.5 mg/dL (1.6-2.6); Total Protein 7.2 g/dL (6.4-8.2)
== END | disposition home or self-care (01) ==
LOC: LAB 09:34
PROVIDERS: ATTEND Internal Medicine Cardiovascular Disease
DX: I48.91 Unspecified atrial fibrillation (principal); Z79.899 Other long term (current) drug therapy
CPT/HCPCS: 36415; 80053; 80162; 81003; 83735; 85025; 87086

== ENCOUNTER → 2019-08-15 | Outpatient (CLI) | payer MEDICARE, MEDICAID ==
[~2019-08-15] MED LIST changes: +DICY20TA PO; -DICY20TA66 PO
[2019-08-15 16:05] LABS: Urine Blood Negative /uL (Negative); Urine Specific Gravity 1.009 (1.001-1.035)
== END | disposition home or self-care (01) ==
LOC: LAB 13:52
PROVIDERS: ATTEND Internal Medicine Cardiovascular Disease
DX: N39.0 Urinary tract infection, site not specified (principal)
CPT/HCPCS: 81003

== ENCOUNTER → 2019-10-05 | Outpatient (CLI) | payer MEDICARE, MEDICAID | END | disposition home or self-care (01) | LOC: LAB 10:22 | PROVIDERS: ATTEND Internal Medicine | DX: N39.0 Urinary tract infection, site not specified (principal) | CPT/HCPCS: 87086; 87088; 87186 ==

== ENCOUNTER → 2019-11-30 | Outpatient (CLI) | payer MEDICARE, MEDICAID ==
[~2019-11-30] MED LIST changes: -ASPI-404 PO; +ASPI-543 PO
[2019-11-30 12:42] LABS: Potassium 3.9 mmol/L (3.5-5.1)
[2019-11-30 12:56] LABS: BUN/Creatinine Ratio 15.9; Calcium 9.1 mg/dL (8.5-10.1); Magnesium 2.7 mg/dL (1.6-2.6)
== END | disposition home or self-care (01) ==
LOC: LAB 10:08
PROVIDERS: ATTEND Internal Medicine Cardiovascular Disease
DX: I42.0 Dilated cardiomyopathy (principal); I10 Essential (primary) hypertension; I50.23 Acute on chronic systolic (congestive) heart failure; I49.9 Cardiac arrhythmia, unspecified
CPT/HCPCS: 36415; 80048; 83735

== ENCOUNTER → 2019-12-06 | Outpatient (CLI) | payer MEDICARE, MEDICAID | END | disposition home or self-care (01) | LOC: Rad HDHVI 14:54 | PROVIDERS: ATTEND Internal Medicine Cardiovascular Disease | DX: I08.3 Combined rheumatic disorders of mitral, aortic and tricuspid valves (principal); I40.9 Acute myocarditis, unspecified | CPT/HCPCS: 93306 ==

== ENCOUNTER → 2019-12-10 | Outpatient (CLI) | payer MEDICARE, MEDICAID ==
[2019-12-10 12:29] LABS: Urine Blood Negative /uL (Negative); Urine Specific Gravity 1.004 (1.001-1.035)
== END | disposition home or self-care (01) ==
LOC: LAB 10:17
PROVIDERS: ATTEND Internal Medicine Cardiovascular Disease
DX: N39.0 Urinary tract infection, site not specified (principal)
CPT/HCPCS: 81003; 87086

== ENCOUNTER → 2020-02-04 | Outpatient (CLI) | payer MEDICARE, MEDICAID ==
[~2020-02-04] VITALS: Ht 152.4 cm; Wt 68.9 kg
[~2020-02-04] MED LIST changes: +ACET-1158 PO; +ASCO100076 PO; +BUSP15TA90 PO; +CHOL1TAB28 PO; +DIGO0.12 PO; +LUBI8CAP4 PO; -OMEP20CA74 OR; +OMEP20CA74 PO; +PANT40TA2 PO; +[UNRECOGNIZED DRUG - CODE] PO
[2020-02-04 12:44] LABS: Eosinophils # (auto) 0.1 10 ^3/uL (0-0.8); Hemoglobin 13.2 g/dL (12.2-16.2)
[2020-02-04 12:46] LABS: Basophils # (auto) 0.1 10 ^3/uL (0-0.2); Basophils % (auto) 0.6 % (0.0-2.0); Eosinophils % (auto) 0.9 % (0.0-7.0); Hematocrit 38.5 % (36.0-46.0); Lymphocytes # (auto) 1.8 10 ^3/uL (0.4-5.4); Lymphocytes % (auto) 20.8 % (10.0-50.0); Mean Corpuscular Hemoglobin 34.4 pg (28.0-32.0); Mean Corpuscular Hgb Conc. 34.2 g/dL (32.0-36.0); Mean Corpuscular Volume 100.7 fL (80.0-100.0); Monocytes # (auto) 0.5 10 ^3/uL (0-1.3); Monocytes % (auto) 5.5 % (0.0-12.0); Neutrophils # (auto) 6.1 10 ^3/uL (1.6-8.6); Neutrophils % (auto) 72.2 % (37.0-80.0); Nucleated Red Blood Cells % 0.1 %; Platelet Count (auto) 253 10^3/uL (140-450); Red Blood Cells 3.83 10^6/uL (4.0-5.20); Red Cell Distribution Width 12.9 % (11.8-14.3); White Blood Cell 8.4 10^3/uL (4.4-10.8)
[2020-02-04 13:32] LABS: INR 1.01 (0.9-1.15)
[2020-02-04 13:33] LABS: Partial Thromboplastin Time 23.9 sec (23.0-31.2)
== END | disposition home or self-care (01) ==
LOC: GI 12:05 → EDSTATUS 02-07 08:55
PROVIDERS: ATTEND Internal Medicine Gastroenterology
DX: Z01.812 Encounter for preprocedural laboratory examination (principal); Z20.828 Contact with and (suspected) exposure to other viral communicable diseases; K59.09 Other constipation; R10.13 Epigastric pain
CPT/HCPCS: 36415; 85025; 85610; 85730; U0003

== ENCOUNTER → 2020-05-21 | Outpatient (CLI) | payer MEDICARE, MEDICAID ==
[~2020-05-21] MED LIST changes: -CHOL50007 PO; -DICY20TA PO; -FLUT1SPR5; -HYDR-4833 PO; -IBUP800T24 PO; -LOSA-69 PO; -METO-169 PO; -RANI-185 PO; -SACU1TAB PO
[2020-05-21 11:59] LABS: Basophils # (auto) 0 10 ^3/uL (0-0.2); Basophils % (auto) 0.5 % (0.0-2.0); Eosinophils # (auto) 0.1 10 ^3/uL (0-0.8); Monocytes # (auto) 0.3 10 ^3/uL (0-1.3); Nucleated Red Blood Cells % 0.1 %; Red Cell Distribution Width 12.5 % (11.8-14.3); White Blood Cell 5.9 10^3/uL (4.4-10.8)
[2020-05-21 12:01] LABS: Urine Blood Negative /uL (Negative); Urine Specific Gravity 1.017 (1.001-1.035)
[2020-05-21 12:07] LABS: Eosinophils % (auto) 1.9 % (0.0-7.0); Hematocrit 35.3 % (36.0-46.0); Hemoglobin 12.3 g/dL (12.2-16.2); Lymphocytes % (auto) 34.2 % (10.0-50.0); Mean Corpuscular Hemoglobin 35.7 pg (28.0-32.0); Mean Corpuscular Hgb Conc. 34.8 g/dL (32.0-36.0); Mean Corpuscular Volume 102.8 fL (80.0-100.0); Monocytes % (auto) 4.6 % (0.0-12.0); Neutrophils # (auto) 3.5 10 ^3/uL (1.6-8.6); Neutrophils % (auto) 58.8 % (37.0-80.0); Platelet Count (auto) 193 10^3/uL (140-450); Red Blood Cells 3.43 10^6/uL (4.0-5.20)
[2020-05-21 12:34] LABS: Free T4 (Free Thyroxine) 1.22 ng/dL (0.89-1.76)
[2020-05-21 12:49] LABS: Albumin 3.6 g/dL (3.4-5.0); BUN/Creatinine Ratio 24.2; Bilirubin, Total 1.3 mg/dL (0.2-1.0); Calcium 9.1 mg/dL (8.5-10.1); Total Protein 7.1 g/dL (6.4-8.2)
== END | disposition home or self-care (01) ==
LOC: Rad HDHVI 08:49
PROVIDERS: ATTEND Internal Medicine Cardiovascular Disease
DX: I11.9 Hypertensive heart disease without heart failure (principal); I70.0 Atherosclerosis of aorta; R00.2 Palpitations; D51.3 Other dietary vitamin B12 deficiency anemia; R06.02 Shortness of breath; E55.9 Vitamin D deficiency, unspecified; E11.9 Type 2 diabetes mellitus without complications; R53.1 Weakness; D64.9 Anemia, unspecified; Z95.810 Presence of automatic (implantable) cardiac defibrillator
CPT/HCPCS: 36415; 71046; 80053; 80061; 81003; 82306; 82607; 83036; 84439; 84443; 85025

== ENCOUNTER 2020-06-20 10:41 | Emergency (ER) | payer MEDICARE, MEDICAID ==
[~2020-06-20] VITALS: Ht 154.9 cm; Wt 69.9 kg
[2020-06-20 11:30] VITALS: BP 121/64
[2020-06-20 11:57] LABS: Basophils # (auto) 0.1 10 ^3/uL (0-0.2); Basophils % (auto) 0.9 % (0.0-2.0); Eosinophils # (auto) 0 10 ^3/uL (0-0.8); Hemoglobin 13.2 g/dL (12.2-16.2); Lymphocytes # (auto) 1.3 10 ^3/uL (0.4-5.4); Monocytes # (auto) 0.3 10 ^3/uL (0-1.3); Nucleated Red Blood Cells % 0.1 %
[2020-06-20 11:59] LABS: Eosinophils % (auto) 0.8 % (0.0-7.0); Hematocrit 38.9 % (36.0-46.0); Lymphocytes % (auto) 23.7 % (10.0-50.0); Mean Corpuscular Hemoglobin 34.6 pg (28.0-32.0); Monocytes % (auto) 5.8 % (0.0-12.0); Neutrophils # (auto) 3.8 10 ^3/uL (1.6-8.6); Neutrophils % (auto) 68.8 % (37.0-80.0); Platelet Count (auto) 200 10^3/uL (140-450); Red Blood Cells 3.81 10^6/uL (4.0-5.20); Red Cell Distribution Width 12.8 % (11.8-14.3); White Blood Cell 5.6 10^3/uL (4.4-10.8)
[2020-06-20 12:17] LABS: Alanine Aminotransferase 78 U/L (13-56); Albumin 3.9 g/dL (3.4-5.0); Anion Gap 8 (5-15); Blood Urea Nitrogen 15 mg/dL (7-18); Calcium 9.2 mg/dL (8.5-10.1); Carbon Dioxide 27 mmol/L (21-32); Chloride 105 mmol/L (98-107); Glucose 86 mg/dL (74-106); Magnesium 2.8 mg/dL (1.6-2.6); Potassium 4.4 mmol/L (3.5-5.1); Sodium 140 mmol/L (136-145)
[2020-06-20 12:23] LABS: Alkaline Phosphatase 160 U/L (45-117); Aspartate Aminotransferase 77 U/L (15-37); BUN/Creatinine Ratio 22.4; Bilirubin, Total 1.4 mg/dL (0.2-1.0); GFR African American 109 mL/min; GFR Non-African American 90 mL/min; Total Protein 7.4 g/dL (6.4-8.2)
[2020-06-20 12:24] LABS: Urine Bacteria NONE SEEN /hpf (None Seen); Urine Blood Negative /uL (Negative); Urine Specific Gravity 1.005 (1.001-1.035); Urine WBC 1 /hpf (0 - 5)
== END 2020-06-20 13:16 | disposition home or self-care (01) ==
LOC: EDUNIT# 10:41 → ER 10:41 → EDBD 10:41 → ER 13:16
DX: T88.1XXA Other complications following immunization, not elsewhere classified, initial encounter (principal); L27.0 Generalized skin eruption due to drugs and medicaments taken internally; M25.512 Pain in left shoulder; I11.0 Hypertensive heart disease with heart failure; I50.9 Heart failure, unspecified; E78.5 Hyperlipidemia, unspecified; Z90.49 Acquired absence of other specified parts of digestive tract; Z88.1 Allergy status to other antibiotic agents; Z88.0 Allergy status to penicillin; Z90.710 Acquired absence of both cervix and uterus
CPT/HCPCS: 36415; 70450; 71045; 80053; 81001; 83735; 84484; 85025; 93005

== ENCOUNTER → 2020-07-24 | Outpatient (CLI) | payer MEDICARE, MEDICAID | END | disposition home or self-care (01) | LOC: Rad HDHVI 13:02 | PROVIDERS: ATTEND Internal Medicine Cardiovascular Disease | DX: I08.0 Rheumatic disorders of both mitral and aortic valves (principal); I47.2 Ventricular tachycardia | CPT/HCPCS: 93306 ==

== ENCOUNTER 2020-07-31 08:52 | Day surgery (SDC) | payer MEDICARE, MEDICAID ==
[2020-07-28 16:11] LABS: Eosinophils # (auto) 0.1 10 ^3/uL (0-0.8); Hemoglobin 12.5 g/dL (12.2-16.2); Mean Corpuscular Hemoglobin 35.3 pg (28.0-32.0); Monocytes # (auto) 0.3 10 ^3/uL (0-1.3); Red Blood Cells 3.55 10^6/uL (4.0-5.20)
[2020-07-28 16:13] LABS: Basophils # (auto) 0 10 ^3/uL (0-0.2); Basophils % (auto) 0.7 % (0.0-2.0); Eosinophils % (auto) 1.3 % (0.0-7.0); Lymphocytes # (auto) 2.1 10 ^3/uL (0.4-5.4); Lymphocytes % (auto) 31.6 % (10.0-50.0); Mean Corpuscular Hgb Conc. 34.9 g/dL (32.0-36.0); Mean Corpuscular Volume 101.3 fL (80.0-100.0); Monocytes % (auto) 5.1 % (0.0-12.0); Neutrophils % (auto) 61.3 % (37.0-80.0); Red Cell Distribution Width 12.6 % (11.8-14.3); White Blood Cell 6.5 10^3/uL (4.4-10.8)
[2020-07-28 16:33] LABS: INR 1.02 (0.9-1.15); Partial Thromboplastin Time 25.3 sec (23.0-31.2)
[2020-07-28 16:35] LABS: Urine Bacteria NONE SEEN /hpf (None Seen); Urine Blood Negative /uL (Negative); Urine Specific Gravity 1.008 (1.001-1.035); Urine WBC 1 /hpf (0 - 5)
[2020-07-28 16:46] LABS: Albumin 4.1 g/dL (3.4-5.0); Calcium 8.7 mg/dL (8.5-10.1); Potassium 3.8 mmol/L (3.5-5.1)
[2020-07-28 16:49] LABS: BUN/Creatinine Ratio 23.5; Bilirubin, Total 1.2 mg/dL (0.2-1.0); Total Protein 7.6 g/dL (6.4-8.2)
[~2020-07-31] VITALS: Ht 152.4 cm; Wt 70.8 kg
[~2020-07-31 08:52] MED LIST changes: -ASCO100076 PO; -CHOL1TAB28 PO; -DIGO0.12 PO; -MAGN400T40 PO; -OMEP20CA74 PO; -PANT40TA2 PO; -SPIR25TA8 PO; -[UNRECOGNIZED DRUG - CODE] PO
[2020-07-31] MEDS ORDERED: LIDOCAINE VISCOUS 2% 15ML UD ONE (09:06)
[2020-07-31] MEDS ORDERED: fentaNYL CITRATE 100 MCG/2 ML VL ONE (11:13)
[2020-07-31] MEDS ORDERED: MEPERIDINE HCL (25 MG/ML) 1ML VIAL ONE (11:13)
[2020-07-31] MEDS ORDERED: MIDAZOLAM HCL 2MG/2ML 2ml VIAL (1mg/ml) ONE (11:13)
[2020-07-31] MEDS ORDERED: ePHEDrine SULFATE 50 MG/ML AMP IV PRN (11:30)
[2020-07-31] MEDS ORDERED: ONDANSETRON HCL 4 MG/2 ML VIAL IV PRN (11:30)
[2020-07-31] MEDS ORDERED: MIDAZOLAM HCL 2MG/2ML 2ml VIAL (1mg/ml) IV PRN (11:30)
[2020-07-31] MEDS ORDERED: LABETALOL HCL 5 MG/ML 4ML SYRINGE IV PRN (11:30)
[2020-07-31] MEDS ORDERED: DexAMETHasone SOD PHOS 10MG/1ML VIAL INJ ONE (11:34)
[2020-07-31] MEDS ORDERED: PROPOFOL 10 MG/ML 20 ML IV ONE (11:34)
[2020-07-31 13:05] VITALS: BP 124/58
== END 2020-07-31 13:45 | disposition home or self-care (01) ==
LOC: GI 08:52
PROVIDERS: ATTEND Internal Medicine Gastroenterology
DX: K59.00 Constipation, unspecified (principal); K57.30 Diverticulosis of large intestine without perforation or abscess without bleeding; K29.50 Unspecified chronic gastritis without bleeding; K31.89 Other diseases of stomach and duodenum; J44.9 Chronic obstructive pulmonary disease, unspecified; I50.9 Heart failure, unspecified; F41.9 Anxiety disorder, unspecified; H26.8 Other specified cataract; Z98.890 Other specified postprocedural states; Z20.822 Contact with and (suspected) exposure to COVID-19; Z96.89 Presence of other specified functional implants; Z90.710 Acquired absence of both cervix and uterus; Z90.721 Acquired absence of ovaries, unilateral; Z87.891 Personal history of nicotine dependence; Z88.0 Allergy status to penicillin; Z88.5 Allergy status to narcotic agent; Z88.1 Allergy status to other antibiotic agents; Z68.30 Body mass index [BMI] 30.0-30.9, adult
CPT/HCPCS: 36415; 43239; 45378; 80053; 81001; 85025; 85610; 85730; 88305; 88342; J1100; J2175; J2250; J2704; J3010; J7030; U0003

== ENCOUNTER 2020-08-07 11:20 | Inpatient (IN) | payer MEDICARE, MEDICAID ==
[~2020-08-07] VITALS: Ht 154.9 cm; Wt 71.9 kg
[2020-08-07 11:51] LABS: Basophils # (auto) 0.1 10 ^3/uL (0-0.2); Eosinophils # (auto) 0.1 10 ^3/uL (0-0.8); Monocytes # (auto) 0.4 10 ^3/uL (0-1.3); Nucleated Red Blood Cells % 0.1 %
[2020-08-07 11:52] LABS: Basophils % (auto) 0.8 % (0.0-2.0); Eosinophils % (auto) 1.1 % (0.0-7.0); Hematocrit 34.4 % (36.0-46.0); Hemoglobin 12.1 g/dL (12.2-16.2); Lymphocytes # (auto) 1.8 10 ^3/uL (0.4-5.4); Lymphocytes % (auto) 24.4 % (10.0-50.0); Mean Corpuscular Hemoglobin 35.5 pg (28.0-32.0); Mean Corpuscular Hgb Conc. 35.2 g/dL (32.0-36.0); Monocytes % (auto) 5.2 % (0.0-12.0); Neutrophils # (auto) 5.1 10 ^3/uL (1.6-8.6); Neutrophils % (auto) 68.5 % (37.0-80.0); Red Cell Distribution Width 12.4 % (11.8-14.3); White Blood Cell 7.4 10^3/uL (4.4-10.8)
[2020-08-07 12:08] LABS: Albumin 3.5 g/dL (3.4-5.0); Anion Gap 7 (5-15); Blood Urea Nitrogen 15 mg/dL (7-18); Calcium 8.6 mg/dL (8.5-10.1); Carbon Dioxide 28 mmol/L (21-32); Chloride 99 mmol/L (98-107); Glucose 106 mg/dL (74-106); INR 1.04 (0.9-1.15); Magnesium 2.1 mg/dL (1.6-2.6); Partial Thromboplastin Time 24.6 sec (23.0-31.2); Potassium 3.5 mmol/L (3.5-5.1); Sodium 134 mmol/L (136-145)
[2020-08-07 12:14] LABS: Alanine Aminotransferase 46 U/L (13-56); Alkaline Phosphatase 134 U/L (45-117); Aspartate Aminotransferase 42 U/L (15-37); BUN/Creatinine Ratio 22.1; Bilirubin, Total 1.8 mg/dL (0.2-1.0); GFR African American 108 mL/min; GFR Non-African American 89 mL/min; Total Protein 6.6 g/dL (6.4-8.2)
[2020-08-07] MEDS ORDERED: MORPHINE SULFATE INJECTION 2 MG/ML SYRG IV PRN (13:45)
[2020-08-07] MEDS ORDERED: NITROGLYCERIN 0.4 MG SL TAB SL PRN (13:45)
[2020-08-07] MEDS ORDERED: ERTAPENEM SOD INJ 1 GM in SODIUM CHL 0.9% 50 ML IV SCH (14:00)
[2020-08-07] MEDS ORDERED: traMADol HCL 50 MG TAB PO PRN (14:00)
[2020-08-07] MEDS ORDERED: SODIUM CHLORIDE 0.9% 1,000 ML IV SCH (14:00)
[2020-08-07] MEDS ORDERED: cefTRIAXone 1GM/50ML D5W 50 ML IV ONE ×2 (14:00→14:30)
[2020-08-07] MEDS ORDERED: ACETAMINOPHEN 500 MG TAB PO PRN (14:00)
[2020-08-07] MEDS ORDERED: ONDANSETRON HCL 4 MG/2 ML VIAL IV PRN (14:00)
[2020-08-07] MEDS ORDERED: metroNIDAZOLE 500MG/100ML 100 ML IV SCH (14:00)
[2020-08-07 15:02] LABS: Amylase 39 U/L (25-115); Lipase 102 U/L (73-393)
[2020-08-07] MEDS: SODIUM CHLORIDE 0.9% 1,000 ML IV SCH (15:04)
[2020-08-07] MEDS: PANTOPRAZOLE 40 MG TAB PO SCH ×2 (15:04→23:02)
[2020-08-07] MEDS: metroNIDAZOLE 500MG/100ML 100 ML IV SCH (16:54)
[2020-08-07 18:30] VITALS: BP 126/63
[2020-08-07] MEDS ORDERED: FAMOTIDINE 20 MG TAB PO SCH (22:00)
[2020-08-07 22:04] VITALS: BP 126/63
[2020-08-07] MEDS: TEMAZEPAM 15 MG CAP PO PRN (23:04)
[2020-08-07] MEDS: traMADol HCL 50 MG TAB PO PRN (23:04)
[2020-08-08] MEDS: metroNIDAZOLE 500MG/100ML 100 ML IV SCH ×3 (02:08→17:04)
[2020-08-08] MEDS: SODIUM CHLORIDE 0.9% 1,000 ML IV SCH (02:08)
[2020-08-08 05:27] VITALS: BP 100/56
[2020-08-08 09:00] VITALS: BP 101/51
[2020-08-08] MEDS ORDERED: cefTRIAXone 1GM/50ML D5W 50 ML IV SCH (09:00)
[2020-08-08] MEDS: PANTOPRAZOLE 40 MG TAB PO SCH ×2 (09:13→22:18)
[2020-08-08] MEDS: cefTRIAXone 1GM/50ML D5W 50 ML IV SCH (10:31)
[2020-08-08 13:00] VITALS: BP 96/54
[2020-08-08] MEDS ORDERED: ALBUTEROL SULF 2.5 MG/0.5ML(0.5%) NEB SOLN NEB SCH (14:00)
[2020-08-08 17:00] VITALS: BP 101/54
[2020-08-08 17:57] LABS: Urine Bacteria FEW /hpf (None Seen); Urine Blood 1+ /uL (Negative); Urine Specific Gravity 1.003 (1.001-1.035); Urine WBC 5 /hpf (0 - 5)
[2020-08-08 22:00] VITALS: BP 113/71
[2020-08-08] MEDS ORDERED: ATORVASTATIN 20 MG TAB PO SCH (22:00)
[2020-08-08] MEDS: busPIRone HCL 10 MG TAB PO SCH (22:16)
[2020-08-08] MEDS: OXYBUTYNIN CHL 5 MG TAB PO SCH (22:17)
[2020-08-08] MEDS: TEMAZEPAM 15 MG CAP PO PRN (22:18)
[2020-08-08] MEDS: traMADol HCL 50 MG TAB PO PRN (22:19)
[2020-08-09] MEDS: metroNIDAZOLE 500MG/100ML 100 ML IV SCH ×2 (01:45→14:35)
[2020-08-09 05:00] VITALS: BP 108/67
[2020-08-09 05:33] LABS: Basophils # (auto) 0.1 10 ^3/uL (0-0.2); Eosinophils # (auto) 0.3 10 ^3/uL (0-0.8); Eosinophils % (auto) 5.7 % (0.0-7.0); Hematocrit 34.1 % (36.0-46.0); Hemoglobin 11.8 g/dL (12.2-16.2); Lymphocytes # (auto) 1.3 10 ^3/uL (0.4-5.4); Lymphocytes % (auto) 27.5 % (10.0-50.0); Mean Corpuscular Hemoglobin 35.6 pg (28.0-32.0); Mean Corpuscular Hgb Conc. 34.7 g/dL (32.0-36.0); Mean Corpuscular Volume 102.5 fL (80.0-100.0); Monocytes # (auto) 0.3 10 ^3/uL (0-1.3); Monocytes % (auto) 6.9 % (0.0-12.0); Neutrophils # (auto) 2.9 10 ^3/uL (1.6-8.6); Neutrophils % (auto) 58.9 % (37.0-80.0); Nucleated Red Blood Cells % 0.1 %; Red Blood Cells 3.33 10^6/uL (4.0-5.20); Red Cell Distribution Width 12.6 % (11.8-14.3); White Blood Cell 4.9 10^3/uL (4.4-10.8)
[2020-08-09 05:59] LABS: Calcium 8.6 mg/dL (8.5-10.1); Potassium 4.4 mmol/L (3.5-5.1)
[2020-08-09 06:04] LABS: Albumin 2.9 g/dL (3.4-5.0); BUN/Creatinine Ratio 10.3; Bilirubin, Total 1.2 mg/dL (0.2-1.0); Total Protein 5.7 g/dL (6.4-8.2)
[2020-08-09] MEDS ORDERED: LEVOTHYROXINE SODIUM 88 MCG TAB PO SCH (07:00)
[2020-08-09 09:00] VITALS: BP 117/65
[2020-08-09] MEDS ORDERED: LACTULOSE 20Gm/30ML SOLN PO PRN (09:45)
[2020-08-09] MEDS ORDERED: POTASSIUM CHL 10 Meq TABLET PO SCH (10:00)
[2020-08-09] MEDS ORDERED: LIDOCAINE 5% TOPICAL PATCH TOP SCH (10:00)
[2020-08-09] MEDS ORDERED: FUROSEMIDE 40 MG TAB PO SCH (10:00)
[2020-08-09] MEDS ORDERED: ASPirin-EC 81 mg tab PO SCH (10:00)
[2020-08-09 13:00] VITALS: BP 119/73
[2020-08-09] MEDS: OXYBUTYNIN CHL 5 MG TAB PO SCH (14:35)
[2020-08-09] MEDS: busPIRone HCL 10 MG TAB PO SCH (14:35)
[2020-08-09] MEDS: cefTRIAXone 1GM/50ML D5W 50 ML IV SCH (14:35)
[2020-08-09] MEDS: PANTOPRAZOLE 40 MG TAB PO SCH (14:37)
[2020-08-09 17:00] VITALS: BP 119/73
[2020-08-09 17:33] VITALS: BP 119/73
== END 2020-08-09 18:53 | disposition home or self-care (01) | DRG 392 ==
LOC: ER 11:20 → TELE 13:42 → TELE-WESTW 18:32
PROVIDERS: ADMIT Internal Medicine; ATTEND Internal Medicine
DX: K57.92 Diverticulitis of intestine, part unspecified, without perforation or abscess without bleeding (principal); I24.9 Acute ischemic heart disease, unspecified; I47.2 Ventricular tachycardia; I50.22 Chronic systolic (congestive) heart failure; E87.1 Hypo-osmolality and hyponatremia; I42.0 Dilated cardiomyopathy; I25.10 Atherosclerotic heart disease of native coronary artery without angina pectoris; I25.5 Ischemic cardiomyopathy; K59.00 Constipation, unspecified; F41.9 Anxiety disorder, unspecified; E66.3 Overweight; Z88.5 Allergy status to narcotic agent; Z88.0 Allergy status to penicillin; Z88.8 Allergy status to other drugs, medicaments and biological substances; Z20.822 Contact with and (suspected) exposure to COVID-19; Z68.30 Body mass index [BMI] 30.0-30.9, adult; D64.9 Anemia, unspecified; Z83.3 Family history of diabetes mellitus; Z82.49 Family history of ischemic heart disease and other diseases of the circulatory system; Z80.42 Family history of malignant neoplasm of prostate; Z80.0 Family history of malignant neoplasm of digestive organs; E78.5 Hyperlipidemia, unspecified; I11.0 Hypertensive heart disease with heart failure; I70.0 Atherosclerosis of aorta; Z82.5 Family history of asthma and other chronic lower respiratory diseases; Z90.710 Acquired absence of both cervix and uterus; Z91.19 Patient's noncompliance with other medical treatment and regimen; Z95.810 Presence of automatic (implantable) cardiac defibrillator
CPT/HCPCS: 36415; 71045; 74176; 80053; 81001; 82150; 83690; 83735; 84443; 84484; 85025; 85610; 85730; 87426; 93005; 96365; G0378; J0696; J1335; J3490

== ENCOUNTER → 2020-08-14 | Outpatient (CLI) | payer MEDICARE, MEDICAID ==
[~2020-08-14] VITALS: Ht 154.9 cm; Wt 66.2 kg
[~2020-08-14] MED LIST changes: +ADENOSINE 56 MG in GIVE UN-DILUTED 0 ML IV ONE; +ADENOSINE 90 MG/30 ML INJ IV ONE
== END | disposition home or self-care (01) ==
LOC: Rad HDHVI 08:08
PROVIDERS: ATTEND Internal Medicine Cardiovascular Disease
DX: R06.02 Shortness of breath (principal); R07.9 Chest pain, unspecified
CPT/HCPCS: 78452; 93005; 96374; 96375; A9500; J0153

== ENCOUNTER → 2020-10-17 | Outpatient (CLI) | payer MEDICARE ==
[~2020-10-17] MED LIST changes: -ADENOSINE 56 MG in GIVE UN-DILUTED 0 ML IV ONE; -ADENOSINE 90 MG/30 ML INJ IV ONE
[2020-10-17 15:17] LABS: Basophils # (auto) 0.1 10 ^3/uL (0-0.2); Eosinophils # (auto) 0.1 10 ^3/uL (0-0.8); Mean Corpuscular Hemoglobin 35.4 pg (28.0-32.0); Monocytes # (auto) 0.4 10 ^3/uL (0-1.3)
[2020-10-17 15:19] LABS: Basophils % (auto) 0.8 % (0.0-2.0); Eosinophils % (auto) 1.4 % (0.0-7.0); Hematocrit 34.7 % (36.0-46.0); Lymphocytes % (auto) 29.9 % (10.0-50.0); Mean Corpuscular Hgb Conc. 34.6 g/dL (32.0-36.0); Monocytes % (auto) 6.3 % (0.0-12.0); Neutrophils # (auto) 4.1 10 ^3/uL (1.6-8.6); Neutrophils % (auto) 61.6 % (37.0-80.0); White Blood Cell 6.6 10^3/uL (4.4-10.8)
== END | disposition home or self-care (01) ==
LOC: LAB 14:54
PROVIDERS: ATTEND Internal Medicine
DX: I13.0 Hypertensive heart and chronic kidney disease with heart failure and stage 1 through stage 4 chronic kidney disease, or unspecified chronic kidney disease (principal); I50.22 Chronic systolic (congestive) heart failure; E11.22 Type 2 diabetes mellitus with diabetic chronic kidney disease; N18.9 Chronic kidney disease, unspecified
CPT/HCPCS: 36415; 83880; 85025

== ENCOUNTER 2020-10-20 10:31 | Emergency (ER) | payer MEDICARE ==
[~2020-10-20] VITALS: Ht 154.9 cm; Wt 65.8 kg
[2020-10-20 11:13] LABS: Basophils # (auto) 0.1 10 ^3/uL (0-0.2); Eosinophils # (auto) 0.1 10 ^3/uL (0-0.8); Hematocrit 37.4 % (36.0-46.0); Hemoglobin 12.7 g/dL (12.2-16.2); Lymphocytes # (auto) 1.5 10 ^3/uL (0.4-5.4); Mean Corpuscular Volume 102.9 fL (80.0-100.0); Monocytes # (auto) 0.3 10 ^3/uL (0-1.3); Neutrophils # (auto) 3.5 10 ^3/uL (1.6-8.6)
[2020-10-20 11:15] LABS: Lymphocytes % (auto) 28.1 % (10.0-50.0); Mean Corpuscular Hemoglobin 35.1 pg (28.0-32.0); Mean Corpuscular Hgb Conc. 34.1 g/dL (32.0-36.0); Monocytes % (auto) 5.8 % (0.0-12.0); Neutrophils % (auto) 64.1 % (37.0-80.0); Red Blood Cells 3.63 10^6/uL (4.0-5.20); Red Cell Distribution Width 12.7 % (11.8-14.3); White Blood Cell 5.5 10^3/uL (4.4-10.8)
[2020-10-20 11:38] LABS: Urine WBC None Seen /hpf (0 - 5)
[2020-10-20 11:39] LABS: Albumin 3.8 g/dL (3.4-5.0); Anion Gap 5 (5-15); Blood Urea Nitrogen 18 mg/dL (7-18); Calcium 9.2 mg/dL (8.5-10.1); Carbon Dioxide 29 mmol/L (21-32); Chloride 106 mmol/L (98-107); Glucose 94 mg/dL (74-106); Sodium 140 mmol/L (136-145)
[2020-10-20 11:44] LABS: Alanine Aminotransferase 66 U/L (13-56); Alkaline Phosphatase 105 U/L (45-117); Aspartate Aminotransferase 45 U/L (15-37); BUN/Creatinine Ratio 20.7; Bilirubin, Total 1.6 mg/dL (0.2-1.0); GFR African American 81 mL/min; GFR Non-African American 67 mL/min; Total Protein 7.6 g/dL (6.4-8.2)
[2020-10-20 12:17] LABS: Urine Bacteria NONE SEEN /hpf (None Seen); Urine Blood Negative /uL (Negative); Urine Specific Gravity 1.006 (1.001-1.035)
[2020-10-20] MEDS ORDERED: FUROSEMIDE 20 MG/2 ML VIAL IV ONE (13:00)
[2020-10-20] MEDS ORDERED: HYDROcodone-ACET 5/325MG TAB PO ONE (14:45)
[2020-10-20 16:00] VITALS: BP 90/45
== END 2020-10-20 15:42 | disposition home or self-care (01) ==
LOC: ER 10:31
DX: I11.0 Hypertensive heart disease with heart failure (principal); I50.9 Heart failure, unspecified; E78.5 Hyperlipidemia, unspecified; Z86.73 Personal history of transient ischemic attack (TIA), and cerebral infarction without residual deficits; Z90.49 Acquired absence of other specified parts of digestive tract; Z90.710 Acquired absence of both cervix and uterus; Z90.89 Acquired absence of other organs; Z95.0 Presence of cardiac pacemaker; Z88.6 Allergy status to analgesic agent; Z88.0 Allergy status to penicillin; Z88.1 Allergy status to other antibiotic agents; Z20.822 Contact with and (suspected) exposure to COVID-19
CPT/HCPCS: 36415; 71045; 80053; 81001; 83880; 84484; 85025; 87426; 93005; 96374; 99285; J1940

== ENCOUNTER → 2020-12-09 | Outpatient (CLI) | payer MEDICARE ==
[~2020-12-09] VITALS: Ht 30.5 cm; Wt 0.5 kg
[~2020-12-09] MED LIST changes: +CYANOCOBALAMIN (B-12) 1000 MCG/1 ML VIAL IM ONE; +CYANOCOBALAMIN (B-12) 1000 MCG/1 ML VIAL ONE; +FUROSEMIDE 40 MG/4 ML VIAL IV ONE; +FUROSEMIDE 40 MG/4 ML VIAL ONE; +POTASSIUM CHL 10 Meq TABLET PO ONE; +POTASSIUM CHL 20 Meq TABLET PO ONE
[2020-12-09 11:35] VITALS: BP 119/50
[2020-12-09 12:52] VITALS: BP 140/60
[2020-12-09 16:00] LABS: Basophils # (auto) 0 10 ^3/uL (0-0.2); Eosinophils # (auto) 0.1 10 ^3/uL (0-0.8); Lymphocytes # (auto) 1.4 10 ^3/uL (0.4-5.4); Monocytes # (auto) 0.3 10 ^3/uL (0-1.3); Neutrophils # (auto) 2.5 10 ^3/uL (1.6-8.6); Nucleated Red Blood Cells % 0.1 %; White Blood Cell 4.4 10^3/uL (4.4-10.8)
[2020-12-09 16:01] LABS: Basophils % (auto) 0.5 % (0.0-2.0); Hematocrit 35.8 % (36.0-46.0); Hemoglobin 11.8 g/dL (12.2-16.2); Lymphocytes % (auto) 32.5 % (10.0-50.0); Mean Corpuscular Hemoglobin 34.6 pg (28.0-32.0); Mean Corpuscular Volume 104.9 fL (80.0-100.0); Monocytes % (auto) 6.1 % (0.0-12.0); Neutrophils % (auto) 57.9 % (37.0-80.0); Red Blood Cells 3.41 10^6/uL (4.0-5.20); Red Cell Distribution Width 12.7 % (11.8-14.3)
[2020-12-09 16:05] LABS: BUN/Creatinine Ratio 31.8; Calcium 9.2 mg/dL (8.5-10.1); Magnesium 2.6 mg/dL (1.6-2.6); Potassium 4.2 mmol/L (3.5-5.1)
== END | disposition home or self-care (01) ==
LOC: CHF HDHVI 10:53
PROVIDERS: ATTEND Internal Medicine Cardiovascular Disease
DX: I13.0 Hypertensive heart and chronic kidney disease with heart failure and stage 1 through stage 4 chronic kidney disease, or unspecified chronic kidney disease (principal); E11.22 Type 2 diabetes mellitus with diabetic chronic kidney disease; I50.23 Acute on chronic systolic (congestive) heart failure; N18.9 Chronic kidney disease, unspecified; E78.5 Hyperlipidemia, unspecified; Z90.49 Acquired absence of other specified parts of digestive tract; Z90.710 Acquired absence of both cervix and uterus; Z95.0 Presence of cardiac pacemaker; Z86.73 Personal history of transient ischemic attack (TIA), and cerebral infarction without residual deficits
CPT/HCPCS: 36415; 71046; 80048; 83036; 83735; 83880; 84443; 85025; 96372; 96374; G0463; J1940; J3420

== ENCOUNTER 2021-03-04 14:30 | Emergency (ER) | payer MEDICARE, MEDICAID ==
[~2021-03-04] VITALS: Ht 157.5 cm; Wt 69.9 kg
[~2021-03-04 14:30] MED LIST changes: -CYANOCOBALAMIN (B-12) 1000 MCG/1 ML VIAL IM ONE; -CYANOCOBALAMIN (B-12) 1000 MCG/1 ML VIAL ONE; -FUROSEMIDE 40 MG/4 ML VIAL IV ONE; -FUROSEMIDE 40 MG/4 ML VIAL ONE; -POTASSIUM CHL 10 Meq TABLET PO ONE; -POTASSIUM CHL 20 Meq TABLET PO ONE
[2021-03-04] MEDS ORDERED: SODIUM CHLORIDE 0.9% 1,000 ML IVB ONE (17:00)
[2021-03-04 18:30] LABS: Calcium 8.7 mg/dL (8.5-10.1); Potassium 3.3 mmol/L (3.5-5.1)
[2021-03-04 18:34] LABS: Bilirubin, Total 1.7 mg/dL (0.2-1.0); Total Protein 6.6 g/dL (6.4-8.2)
[2021-03-04 18:37] LABS: Basophils # (auto) 0 10 ^3/uL (0-0.2); White Blood Cell 4.6 10^3/uL (4.4-10.8)
[2021-03-04 18:39] LABS: Basophils % (auto) 0.9 % (0.0-2.0); Eosinophils # (auto) 0.1 10 ^3/uL (0-0.8); Eosinophils % (auto) 1.4 % (0.0-7.0); Hematocrit 35.8 % (36.0-46.0); Hemoglobin 12.4 g/dL (12.2-16.2); Lymphocytes # (auto) 1.4 10 ^3/uL (0.4-5.4); Lymphocytes % (auto) 29.4 % (10.0-50.0); Mean Corpuscular Hemoglobin 35.4 pg (28.0-32.0); Mean Corpuscular Hgb Conc. 34.6 g/dL (32.0-36.0); Mean Corpuscular Volume 102.3 fL (80.0-100.0); Monocytes # (auto) 0.2 10 ^3/uL (0-1.3); Monocytes % (auto) 5.3 % (0.0-12.0); Neutrophils # (auto) 2.9 10 ^3/uL (1.6-8.6); Nucleated Red Blood Cells % 0.1 %; Red Cell Distribution Width 12.6 % (11.8-14.3)
[2021-03-04] MEDS ORDERED: POTASSIUM EFFERVESENT TAB 25 MEQ PO ONE (18:45)
[2021-03-04 20:01] VITALS: BP 108/41
== END 2021-03-04 20:00 | disposition home or self-care (01) ==
LOC: ER 14:30
DX: E87.6 Hypokalemia (principal); N39.0 Urinary tract infection, site not specified; R19.7 Diarrhea, unspecified
CPT/HCPCS: 36415; 80053; 83690; 83735; 84443; 85025; 93005

== ENCOUNTER → 2021-03-12 | Outpatient (CLI) | payer MEDICARE, MEDICAID ==
[2021-03-12 11:30] LABS: Urine Blood Negative /uL (Negative); Urine Specific Gravity 1.004 (1.001-1.035)
[2021-03-12 11:34] LABS: Eosinophils # (auto) 0.1 10 ^3/uL (0-0.8); Eosinophils % (auto) 1.5 % (0.0-7.0); Lymphocytes # (auto) 1.5 10 ^3/uL (0.4-5.4); Monocytes # (auto) 0.3 10 ^3/uL (0-1.3); Neutrophils # (auto) 3.3 10 ^3/uL (1.6-8.6); Nucleated Red Blood Cells % 0.1 %
[2021-03-12 11:36] LABS: Basophils # (auto) 0 10 ^3/uL (0-0.2); Basophils % (auto) 0.7 % (0.0-2.0); Hematocrit 36.3 % (36.0-46.0); Hemoglobin 12.3 g/dL (12.2-16.2); Lymphocytes % (auto) 29.2 % (10.0-50.0); Mean Corpuscular Hemoglobin 35.4 pg (28.0-32.0); Mean Corpuscular Hgb Conc. 33.8 g/dL (32.0-36.0); Mean Corpuscular Volume 104.7 fL (80.0-100.0); Monocytes % (auto) 6.3 % (0.0-12.0); Neutrophils % (auto) 62.3 % (37.0-80.0); Red Blood Cells 3.47 10^6/uL (4.0-5.20); Red Cell Distribution Width 12.2 % (11.8-14.3); White Blood Cell 5.3 10^3/uL (4.4-10.8)
[2021-03-12 12:47] LABS: Potassium 4.1 mmol/L (3.5-5.1)
[2021-03-12 13:00] LABS: Albumin 4.1 g/dL (3.4-5.0); BUN/Creatinine Ratio 28.7; Bilirubin, Total 1.8 mg/dL (0.2-1.0); Calcium 8.8 mg/dL (8.5-10.1); Total Protein 7.6 g/dL (6.4-8.2)
== END | disposition home or self-care (01) ==
LOC: LAB 10:12
PROVIDERS: ATTEND Internal Medicine Cardiovascular Disease
DX: I10 Essential (primary) hypertension (principal); N39.0 Urinary tract infection, site not specified; E03.9 Hypothyroidism, unspecified; D64.9 Anemia, unspecified
CPT/HCPCS: 36415; 80053; 81003; 84439; 84443; 85025

== ENCOUNTER → 2021-04-01 | Outpatient (CLI) | payer MEDICARE, MEDICAID ==
[~2021-04-01] VITALS: Ht 152.4 cm; Wt 70.3 kg
[~2021-04-01] MED LIST changes: +ADENOSINE 59 MG in GIVE UN-DILUTED 0 ML IV ONE; +ADENOSINE 90 MG/30 ML INJ IV ONE
== END | disposition home or self-care (01) ==
LOC: Rad HDHVI 13:36
PROVIDERS: ATTEND Internal Medicine Cardiovascular Disease
DX: I11.0 Hypertensive heart disease with heart failure (principal); I50.43 Acute on chronic combined systolic (congestive) and diastolic (congestive) heart failure; I42.0 Dilated cardiomyopathy; E78.5 Hyperlipidemia, unspecified; R06.02 Shortness of breath; R07.89 Other chest pain; Z95.0 Presence of cardiac pacemaker; Z82.49 Family history of ischemic heart disease and other diseases of the circulatory system
CPT/HCPCS: 78452; 93005; 96374; 96375; A9500; J0153

== ENCOUNTER → 2021-08-13 | Outpatient (CLI) | payer MEDICARE, MEDICAID ==
[~2021-08-13] MED LIST changes: -ADENOSINE 59 MG in GIVE UN-DILUTED 0 ML IV ONE; -ADENOSINE 90 MG/30 ML INJ IV ONE
== END | disposition home or self-care (01) ==
LOC: Rad HDHVI 10:01
PROVIDERS: ATTEND Internal Medicine Cardiovascular Disease
DX: I08.0 Rheumatic disorders of both mitral and aortic valves (principal); I71.2 Thoracic aortic aneurysm, without rupture; I10 Essential (primary) hypertension; I42.0 Dilated cardiomyopathy
CPT/HCPCS: 93306

== ENCOUNTER → 2021-11-17 | Outpatient (CLI) | payer MEDICARE, MEDICAID ==
[2021-11-17 11:57] LABS: Albumin 3.8 g/dL (3.4-5.0); BUN/Creatinine Ratio 21.9; Basophils # (auto) 0 10 ^3/uL (0-0.2); Calcium 9.1 mg/dL (8.5-10.1); Eosinophils # (auto) 0.1 10 ^3/uL (0-0.8); Eosinophils % (auto) 1.9 % (0.0-7.0); Lymphocytes # (auto) 1.3 10 ^3/uL (0.4-5.4); Monocytes # (auto) 0.3 10 ^3/uL (0-1.3); Neutrophils # (auto) 3.6 10 ^3/uL (1.6-8.6); Nucleated Red Blood Cells % 0.1 %; Potassium 4.3 mmol/L (3.5-5.1)
[2021-11-17 12:01] LABS: Basophils % (auto) 0.7 % (0.0-2.0); Hematocrit 37.3 % (36.0-46.0); Hemoglobin 12.2 g/dL (12.2-16.2); Mean Corpuscular Hemoglobin 34.1 pg (28.0-32.0); Mean Corpuscular Hgb Conc. 32.8 g/dL (32.0-36.0); Mean Corpuscular Volume 104.1 fL (80.0-100.0); Monocytes % (auto) 5.5 % (0.0-12.0); Neutrophils % (auto) 67.9 % (37.0-80.0); Red Blood Cells 3.58 10^6/uL (4.0-5.20); Red Cell Distribution Width 13.2 % (11.8-14.3); White Blood Cell 5.2 10^3/uL (4.4-10.8)
[2021-11-17 12:02] LABS: Urine Blood Negative /uL (Negative); Urine Specific Gravity 1.022 (1.001-1.035)
[2021-11-17 12:05] LABS: Bilirubin, Total 1.4 mg/dL (0.2-1.0); Total Protein 7.2 g/dL (6.4-8.2)
== END | disposition home or self-care (01) ==
LOC: LAB 08:49
PROVIDERS: ATTEND Internal Medicine Cardiovascular Disease
DX: E55.9 Vitamin D deficiency, unspecified (principal); D51.3 Other dietary vitamin B12 deficiency anemia; D64.9 Anemia, unspecified; E11.9 Type 2 diabetes mellitus without complications; I10 Essential (primary) hypertension; R00.2 Palpitations; R53.1 Weakness; R30.0 Dysuria
CPT/HCPCS: 36415; 80053; 80061; 81003; 82306; 82607; 83036; 84439; 84443; 85025; 87086

== ENCOUNTER → 2021-11-25 | Outpatient (CLI) | payer MEDICARE, MEDICAID ==
[~2021-11-25] VITALS: Ht 152.4 cm; Wt 73.9 kg
== END | disposition home or self-care (01) ==
LOC: Rad HDHVI 12:19
PROVIDERS: ATTEND Internal Medicine Cardiovascular Disease
DX: R00.2 Palpitations (principal); I11.0 Hypertensive heart disease with heart failure; I50.23 Acute on chronic systolic (congestive) heart failure; I47.2 Ventricular tachycardia; I42.0 Dilated cardiomyopathy; R07.9 Chest pain, unspecified; E78.5 Hyperlipidemia, unspecified; Z95.0 Presence of cardiac pacemaker
CPT/HCPCS: 78472; 96374; 96375; A9505

== ENCOUNTER → 2021-12-07 | Outpatient (CLI) | payer MEDICARE, MEDICAID | END | disposition home or self-care (01) | LOC: Rad HDHVI 13:21 | PROVIDERS: ATTEND Internal Medicine Cardiovascular Disease | DX: J32.9 Chronic sinusitis, unspecified (principal) | CPT/HCPCS: 70220 ==

== ENCOUNTER → 2022-01-18 | Outpatient (CLI) | payer MEDICARE, MEDICAID ==
[2022-01-18 16:35] LABS: Urine Blood Negative /uL (Negative); Urine Specific Gravity 1.005 (1.001-1.035)
== END | disposition home or self-care (01) ==
LOC: LAB 11:52
PROVIDERS: ATTEND Internal Medicine
DX: N39.0 Urinary tract infection, site not specified (principal)
CPT/HCPCS: 81003; 87086

== ENCOUNTER → 2022-03-24 | Outpatient (CLI) | payer MEDICARE | END | disposition home or self-care (01) | LOC: Rad HDHVI 13:44 | PROVIDERS: ATTEND Internal Medicine Cardiovascular Disease | DX: I70.0 Atherosclerosis of aorta (principal); M47.814 Spondylosis without myelopathy or radiculopathy, thoracic region; R05.9 Cough, unspecified; J93.9 Pneumothorax, unspecified; J18.9 Pneumonia, unspecified organism | CPT/HCPCS: 71046 ==

== ENCOUNTER → 2022-06-15 | Outpatient (CLI) | payer MEDICARE ==
[~2022-06-15] VITALS: Ht 152.4 cm; Wt 75.7 kg
[~2022-06-15] MED LIST changes: +ADENOSINE 64 MG in GIVE UN-DILUTED 0 ML IV ONE; +ADENOSINE 90 MG/30 ML INJ IV ONE
== END | disposition home or self-care (01) ==
LOC: Rad HDHVI 13:06
PROVIDERS: ATTEND Internal Medicine Cardiovascular Disease
DX: I11.0 Hypertensive heart disease with heart failure (principal); I50.43 Acute on chronic combined systolic (congestive) and diastolic (congestive) heart failure; I25.10 Atherosclerotic heart disease of native coronary artery without angina pectoris; I42.1 Obstructive hypertrophic cardiomyopathy; R07.9 Chest pain, unspecified; E78.5 Hyperlipidemia, unspecified; R42 Dizziness and giddiness; R60.9 Edema, unspecified; Z82.49 Family history of ischemic heart disease and other diseases of the circulatory system; Z95.0 Presence of cardiac pacemaker
CPT/HCPCS: 78452; 93005; 96374; 96375; A9500; J0153

== ENCOUNTER → 2022-08-04 | Outpatient (CLI) | payer MEDICARE ==
[~2022-08-04] MED LIST changes: +ACE650RS PR; -ACET-1158 PO; +ACET500T58 PO; -ADENOSINE 64 MG in GIVE UN-DILUTED 0 ML IV ONE; -ADENOSINE 90 MG/30 ML INJ IV ONE; +ALPR0.25 PO; +ASCO500C49 PO; +ASPI1TAB19 PO; +CETI-176 PO; +CETI5TAB PO; +CHOL100047 PO; +CHOL100079 OR; +CLOT1CRE51 TOP; +LEVO75CA3 PO; +LIDOCAINE 2%HCL (LOCAL ANESTH.) INJ 20ML MDV ONE; +METO25TA36 PO; +METO25TA93 PO; +MISCCAP66 PO; +MULT-1018 PO; +MULT1TAB69 PO; +NITR-52 PO; +PANT40T PO; -SIMV-8 PO; +SIMV20TA20 PO; +SPIR25TA PO; +ZINC50TA7 PO; +ZOLP10TA PO
[2022-08-04 08:30] VITALS: BP 107/64
[2022-08-04 08:45] VITALS: BP 120/63
== END | disposition home or self-care (01) ==
LOC: Rad HDHVI 08:13
PROVIDERS: ATTEND Internal Medicine Cardiovascular Disease
DX: Z01.818 Encounter for other preprocedural examination (principal); R94.31 Abnormal electrocardiogram [ECG] [EKG]; I11.0 Hypertensive heart disease with heart failure; I50.43 Acute on chronic combined systolic (congestive) and diastolic (congestive) heart failure; I25.5 Ischemic cardiomyopathy
CPT/HCPCS: 71046; 93005; G0463

== ENCOUNTER 2022-08-05 07:00 | Day surgery (SDC) | payer MEDICARE, MEDICAID ==
[2022-08-04 10:11] LABS: Eosinophils # (auto) 0.1 10 ^3/uL (0-0.8); Mean Corpuscular Volume 104.1 fL (80.0-100.0); Monocytes # (auto) 0.3 10 ^3/uL (0-1.3); Neutrophils # (auto) 3.5 10 ^3/uL (1.6-8.6)
[2022-08-04 10:12] LABS: Basophils # (auto) 0.1 10 ^3/uL (0-0.2); Basophils % (auto) 1.2 % (0.0-2.0); Eosinophils % (auto) 2.4 % (0.0-7.0); Hematocrit 37.2 % (36.0-46.0); Hemoglobin 12.6 g/dL (12.2-16.2); Lymphocytes % (auto) 20.8 % (10.0-50.0); Mean Corpuscular Hemoglobin 35.2 pg (28.0-32.0); Mean Corpuscular Hgb Conc. 33.8 g/dL (32.0-36.0); Monocytes % (auto) 5.8 % (0.0-12.0); Neutrophils % (auto) 69.8 % (37.0-80.0); Red Blood Cells 3.58 10^6/uL (4.0-5.20); Red Cell Distribution Width 12.3 % (11.8-14.3)
[2022-08-04 10:36] LABS: INR 0.98 (0.9-1.15); Partial Thromboplastin Time 25.6 sec (24.6-33.4)
[2022-08-04 10:50] LABS: BUN/Creatinine Ratio 18.7 (10.0-20.0); Calcium 9.1 mg/dL (8.5-10.1); Potassium 4.9 mmol/L (3.5-5.1)
[~2022-08-05] VITALS: Ht 152.4 cm; Wt 77.6 kg
[~2022-08-05 07:00] MED LIST changes: -ACE650RS PR; -ASPI1TAB19 PO; -CETI5TAB PO; -CHOL100047 PO; -LEVO88TA4 PO; -LIDOCAINE 2%HCL (LOCAL ANESTH.) INJ 20ML MDV ONE; -LUBI8CAP4 PO; -METO25TA36 PO; -MULT1TAB69 PO
[2022-08-05] MEDS ORDERED: fentaNYL CITRATE 100 MCG/2 ML VL ONE (10:20)
[2022-08-05] MEDS ORDERED: SODIUM CHL 0.9% 0 ML ONE (10:20)
[2022-08-05] MEDS ORDERED: MIDAZOLAM HCL 2MG/2ML 2ml VIAL (1mg/ml) ONE (10:20)
[2022-08-05] MEDS ORDERED: ANGIOMAX 250 MG VIAL IV ONE (10:20)
[2022-08-05] MEDS ORDERED: IOHEXOL 350 MG/ML 500ML BOTTLE IJ ONE (10:37)
[2022-08-05] MEDS ORDERED: ASPI1TAB19 PO (11:18)
[2022-08-05] MEDS ORDERED: CHOL100047 PO (11:18)
[2022-08-05] MEDS ORDERED: CETI5TAB PO (11:18)
[2022-08-05] MEDS ORDERED: MULT1TAB69 PO (11:29)
== END 2022-08-05 12:25 | disposition home or self-care (01) ==
LOC: CATH 07:00
PROVIDERS: ATTEND Internal Medicine Cardiovascular Disease
DX: R07.89 Other chest pain (principal); R06.00 Dyspnea, unspecified; I42.0 Dilated cardiomyopathy; I11.0 Hypertensive heart disease with heart failure; I50.20 Unspecified systolic (congestive) heart failure; I25.10 Atherosclerotic heart disease of native coronary artery without angina pectoris; Z87.891 Personal history of nicotine dependence; J44.9 Chronic obstructive pulmonary disease, unspecified; I25.5 Ischemic cardiomyopathy; Z79.899 Other long term (current) drug therapy; Z98.890 Other specified postprocedural states
CPT/HCPCS: 36415; 80048; 85025; 85610; 85730; 93458; C1894; J1644; J2250; J3010; Q9967; 99152

== ENCOUNTER → 2022-08-17 | Outpatient (CLI) | payer MEDICARE ==
[~2022-08-17] MED LIST changes: -ASPI-543 PO; +ASPI1TAB19 PO; -CETI-176 PO; +CETI5TAB PO; +CHOL100047 PO; -CHOL100079 OR; -CLOT1CRE51 TOP; -MULT-1018 PO; +MULT1TAB69 PO; -NITR-52 PO
== END | disposition home or self-care (01) ==
LOC: Rad HDHVI 11:04
PROVIDERS: ATTEND Internal Medicine Cardiovascular Disease
DX: R10.9 Unspecified abdominal pain (principal); Z90.49 Acquired absence of other specified parts of digestive tract
CPT/HCPCS: 74176

== ENCOUNTER → 2022-09-09 | Outpatient (CLI) | payer MEDICARE, MEDICAID | END | disposition home or self-care (01) | LOC: Rad HDHVI 10:17 | PROVIDERS: ATTEND Internal Medicine Cardiovascular Disease | DX: I08.3 Combined rheumatic disorders of mitral, aortic and tricuspid valves (principal); R00.2 Palpitations; I10 Essential (primary) hypertension | CPT/HCPCS: 93306 ==

== ENCOUNTER 2022-10-27 15:55 | Emergency (ER) | payer MEDICARE, MEDICAID ==
[~2022-10-27] VITALS: Ht 152.4 cm; Wt 78.0 kg
[2022-10-27 17:34] LABS: Basophils # (auto) 0.1 10 ^3/uL (0-0.2); Eosinophils # (auto) 0.3 10 ^3/uL (0-0.8); Hemoglobin 12.3 g/dL (12.2-16.2); Mean Corpuscular Hgb Conc. 33.4 g/dL (32.0-36.0); Monocytes # (auto) 0.4 10 ^3/uL (0-1.3); Neutrophils # (auto) 3.5 10 ^3/uL (1.6-8.6); Nucleated Red Blood Cells % 0.1 %; White Blood Cell 5.6 10^3/uL (4.4-10.8)
[2022-10-27 17:35] LABS: Basophils % (auto) 1.1 % (0.0-2.0); Hematocrit 36.8 % (36.0-46.0); Lymphocytes # (auto) 1.4 10 ^3/uL (0.4-5.4); Lymphocytes % (auto) 24.4 % (10.0-50.0); Mean Corpuscular Hemoglobin 34.9 pg (28.0-32.0); Mean Corpuscular Volume 104.3 fL (80.0-100.0); Neutrophils % (auto) 62.5 % (37.0-80.0); Red Blood Cells 3.53 10^6/uL (4.0-5.20); Red Cell Distribution Width 12.1 % (11.8-14.3)
[2022-10-27 18:20] LABS: Alanine Aminotransferase 22 U/L (7-40); Albumin 4.5 g/dL (3.2-4.8); Alkaline Phosphatase 89 U/L (46-116); Anion Gap 7.3 (5-15); Aspartate Aminotransferase 20 U/L (13-40); BUN/Creatinine Ratio 18.8 (10.0-20.0); Blood Urea Nitrogen 16 mg/dL (9-23); Calcium 9.4 mg/dL (8.5-10.1); Carbon Dioxide 28.7 mmol/L (20-30); Chloride 105 mmol/L (98-107); Glucose 106 mg/dL (74-106); Potassium 4.6 mmol/L (3.5-5.1); Sodium 141 mmol/L (136-145)
[2022-10-27 18:21] LABS: Bilirubin, Total 1.1 mg/dL (0.2-1.0); Total Protein 6.7 g/dL (5.7-8.2)
[2022-10-27 20:18] LABS: Urine Bacteria NONE SEEN /hpf (None Seen); Urine Blood Negative /uL (Negative); Urine Clarity Clear (Clear); Urine Color Yellow (Yellow); Urine Protein, UAD Negative (Negative); Urine Specific Gravity 1.014 (1.001-1.035); Urine Urobilinogen Normal (Negative); Urine WBC 7 /hpf (0 - 5)
[2022-10-27 21:39] VITALS: BP 118/53; PULSE 77; RESP 18; TEMP 97.8; O2SAT 96
== END 2022-10-27 21:41 | disposition home or self-care (01) ==
LOC: EDBD 15:55 → ER 15:55
DX: T82.897A Other specified complication of cardiac prosthetic devices, implants and grafts, initial encounter (principal); I11.0 Hypertensive heart disease with heart failure; I50.9 Heart failure, unspecified; E78.5 Hyperlipidemia, unspecified; Z95.810 Presence of automatic (implantable) cardiac defibrillator; Z90.49 Acquired absence of other specified parts of digestive tract; Z90.710 Acquired absence of both cervix and uterus; Z79.899 Other long term (current) drug therapy; Z88.0 Allergy status to penicillin; Z88.6 Allergy status to analgesic agent; Z88.1 Allergy status to other antibiotic agents
CPT/HCPCS: 36415; 71045; 80053; 81001; 83735; 83880; 84484; 85025; 93005

== ENCOUNTER → 2022-12-27 | Outpatient (CLI) | payer MEDICARE ==
[~2022-12-27] MED LIST changes: +FUROSEMIDE 100 MG/10ML VIAL IV ONE; +FUROSEMIDE 40 MG/4 ML VIAL ONE; +POTASSIUM CHL 10 Meq TABLET PO ONE; +POTASSIUM CHL 20 Meq TABLET PO ONE
[2022-12-27 12:00] VITALS: BP 113/71; PULSE 66; RESP 18; O2SAT 95
[2022-12-27 12:35] VITALS: BP 118/68; PULSE 64; RESP 18; O2SAT 95
== END | disposition home or self-care (01) ==
LOC: CHF HDHVI 12:03
PROVIDERS: ATTEND Internal Medicine Cardiovascular Disease
DX: I11.0 Hypertensive heart disease with heart failure (principal); I50.43 Acute on chronic combined systolic (congestive) and diastolic (congestive) heart failure; R60.9 Edema, unspecified
CPT/HCPCS: 96374; G0463; J1940

== ENCOUNTER → 2023-02-09 | Outpatient (CLI) | payer MEDICARE ==
[~2023-02-09] MED LIST changes: -FUROSEMIDE 100 MG/10ML VIAL IV ONE; -FUROSEMIDE 40 MG/4 ML VIAL ONE; -POTASSIUM CHL 10 Meq TABLET PO ONE; -POTASSIUM CHL 20 Meq TABLET PO ONE
[2023-02-09 11:30] LABS: Eosinophils # (auto) 0.1 10 ^3/uL (0-0.8); Monocytes # (auto) 0.4 10 ^3/uL (0-1.3)
[2023-02-09 11:32] LABS: Basophils # (auto) 0.1 10 ^3/uL (0-0.2); Basophils % (auto) 0.9 % (0.0-2.0); Eosinophils % (auto) 2.5 % (0.0-7.0); Hematocrit 38.5 % (36.0-46.0); Hemoglobin 12.9 g/dL (12.2-16.2); Lymphocytes # (auto) 1.6 10 ^3/uL (0.4-5.4); Mean Corpuscular Hemoglobin 34.7 pg (28.0-32.0); Mean Corpuscular Hgb Conc. 33.6 g/dL (32.0-36.0); Mean Corpuscular Volume 103.3 fL (80.0-100.0); Monocytes % (auto) 6.4 % (0.0-12.0); Neutrophils # (auto) 3.5 10 ^3/uL (1.6-8.6); Neutrophils % (auto) 62.2 % (37.0-80.0); Nucleated Red Blood Cells % 0.3 %; Red Blood Cells 3.73 10^6/uL (4.0-5.20); Red Cell Distribution Width 12.5 % (11.8-14.3); White Blood Cell 5.7 10^3/uL (4.4-10.8)
[2023-02-09 12:10] LABS: Urine Bacteria FEW /hpf (None Seen); Urine Blood Negative /uL (Negative); Urine Clarity Clear (Clear); Urine Color Straw (Yellow); Urine Hyaline Cast FEW /lpf (0 - 2); Urine Protein, UAD Negative (Negative); Urine Specific Gravity 1.006 (1.001-1.035); Urine Urobilinogen Normal (Negative); Urine WBC 11 /hpf (0 - 5); Urine pH 6.5 (5.0-8.0)
[2023-02-09 12:18] LABS: Free T4 (Free Thyroxine) 1.22 ng/dL (0.89-1.76)
[2023-02-09 13:31] LABS: Alanine Aminotransferase 19 U/L (7-40); Albumin 4.7 g/dL (3.2-4.8); Alkaline Phosphatase 92 U/L (46-116); Aspartate Aminotransferase 22 U/L (13-40); BUN/Creatinine Ratio 16.7 (10.0-20.0); Bilirubin, Total 1.6 mg/dL (0.2-1.0); Blood Urea Nitrogen 15 mg/dL (9-23); Calcium 9.8 mg/dL (8.5-10.1); Cholesterol 138 mg/dL (< 200); Glucose 95 mg/dL (74-106); HDL Cholesterol 55 mg/dL (40-59); LDL Cholesterol 71 mg/dL (< 100); Potassium 4.2 mmol/L (3.5-5.1); Sodium 140 mmol/L (136-145); Total Protein 7.1 g/dL (5.7-8.2); Triglycerides 70 mg/dL (< 150)
[2023-02-09 13:52] LABS: Carbon Dioxide 29 mmol/L (20-30)
[2023-02-09 17:00] LABS: Anion Gap 6 (5-15); Chloride 105 mmol/L (98-107)
== END | disposition home or self-care (01) ==
LOC: LAB 11:03
PROVIDERS: ATTEND Internal Medicine Cardiovascular Disease
DX: I10 Essential (primary) hypertension (principal); E11.9 Type 2 diabetes mellitus without complications; E55.9 Vitamin D deficiency, unspecified; D64.9 Anemia, unspecified; D51.3 Other dietary vitamin B12 deficiency anemia; R00.2 Palpitations
CPT/HCPCS: 36415; 80053; 80061; 81001; 82607; 83036; 84439; 84443; 85025

== ENCOUNTER 2023-04-21 07:18 | Day surgery (SDC) | payer MEDICARE ==
[2023-04-18 13:58] LABS: Basophils # (auto) 0.1 10 ^3/uL (0-0.2); Basophils % (auto) 1.1 % (0.0-2.0); Eosinophils # (auto) 0.3 10 ^3/uL (0-0.8); Eosinophils % (auto) 4.4 % (0.0-7.0); Hemoglobin 13.1 g/dL (12.2-16.2); Lymphocytes # (auto) 1.6 10 ^3/uL (0.4-5.4); Lymphocytes % (auto) 25.9 % (10.0-50.0); Mean Corpuscular Hemoglobin 35.3 pg (28.0-32.0); Mean Corpuscular Hgb Conc. 34.4 g/dL (32.0-36.0); Mean Corpuscular Volume 102.7 fL (80.0-100.0); Monocytes # (auto) 0.5 10 ^3/uL (0-1.3); Monocytes % (auto) 7.6 % (0.0-12.0); Neutrophils # (auto) 3.8 10 ^3/uL (1.6-8.6); Red Cell Distribution Width 12.4 % (11.8-14.3); White Blood Cell 6.2 10^3/uL (4.4-10.8)
[2023-04-18 14:15] LABS: INR 1.04 (0.9-1.15); Partial Thromboplastin Time 25.7 SEC (24.5-34.5); Prothrombin Time 10.9 sec (9.3-11.8)
[2023-04-18 14:41] LABS: Chloride 105 mmol/L (98-107); Potassium 4.3 mmol/L (3.5-5.1); Sodium 140 mmol/L (136-145)
[2023-04-18 14:42] LABS: Anion Gap 6 (5-15); Calcium 9.6 mg/dL (8.5-10.1); Carbon Dioxide 29 mmol/L (20-30)
[2023-04-18 14:47] LABS: BUN/Creatinine Ratio 15.3 (10.0-20.0); Blood Urea Nitrogen 18 mg/dL (9-23); Glucose 108 mg/dL (74-106)
[~2023-04-21] VITALS: Ht 152.4 cm; Wt 77.1 kg
[~2023-04-21 07:18] MED LIST changes: -BUSP15TA90 PO
[2023-04-21] MEDS ORDERED: IOHEXOL 350 MG/ML 100ML IJ ONE (10:46)
[2023-04-21] MEDS ORDERED: MIDAZOLAM HCL 2MG/2ML 2ml VIAL (1mg/ml) ONE (10:46)
[2023-04-21] MEDS ORDERED: LIDOCAINE 2%HCL (LOCAL ANESTH.) INJ 20ML MDV ONE (10:46)
[2023-04-21] MEDS ORDERED: ANGIOMAX 250 MG VIAL IV ONE (10:46)
[2023-04-21] MEDS ORDERED: SODIUM CHL 0.9% 0 ML ONE (10:46)
[2023-04-21] MEDS ORDERED: fentaNYL CITRATE 100 MCG/2 ML VL ONE (10:46)
[2023-04-21 12:57] VITALS: BP 112/55; PULSE 65; RESP 15; TEMP 97.9; O2SAT 97
[2023-04-21 13:13] VITALS: BP 110/60; PULSE 66; RESP 17; O2SAT 96
[2023-04-21 13:29] VITALS: BP 105/57; PULSE 65; RESP 18; O2SAT 96
[2023-04-21 13:42] VITALS: BP 101/56; PULSE 65; RESP 20; O2SAT 98
[2023-04-21 14:00] VITALS: BP 91/61; PULSE 66; RESP 17; O2SAT 95
[2023-04-21 14:44] VITALS: BP 107/63; PULSE 65; RESP 16; O2SAT 96
== END 2023-04-21 14:59 | disposition home or self-care (01) ==
LOC: CATH 07:18
PROVIDERS: ATTEND Internal Medicine Cardiovascular Disease
DX: R09.02 Hypoxemia (principal); I42.0 Dilated cardiomyopathy; Z99.81 Dependence on supplemental oxygen; I10 Essential (primary) hypertension; Z79.899 Other long term (current) drug therapy; Z98.890 Other specified postprocedural states
CPT/HCPCS: 36415; 80048; 85025; 85610; 85730; 93460; C1757; C1894; J1644; J2250; J3010; J7030; Q9967; 99152

== ENCOUNTER → 2023-08-23 | Outpatient (CLI) | payer MEDICARE | END | disposition home or self-care (01) | LOC: Rad HDHVI 09:56 | PROVIDERS: ATTEND Internal Medicine Cardiovascular Disease | DX: I08.0 Rheumatic disorders of both mitral and aortic valves (principal); R06.02 Shortness of breath; I11.9 Hypertensive heart disease without heart failure; Z95.0 Presence of cardiac pacemaker | CPT/HCPCS: 93306 ==

== ENCOUNTER 2023-09-01 10:03 | Inpatient (IN) | payer MEDICARE, MEDICAID ==
[~2023-09-01] VITALS: Ht 152.4 cm; Wt 78.3 kg
[2023-09-01 10:39] LABS: Urine Bacteria None Seen /hpf (None Seen); Urine WBC None Seen /hpf (0 - 5)
[2023-09-01 10:53] LABS: Urine Blood Negative /uL (Negative); Urine Clarity Clear (Clear); Urine Color Colorless (Yellow); Urine Protein, UAD Negative (Negative); Urine Specific Gravity 1.005 (1.001-1.035); Urine Urobilinogen Normal (Negative); Urine pH 7.5 (5.0-9.0)
[2023-09-01 11:07] LABS: Basophils # (auto) 0 10 ^3/uL (0-0.2); Basophils % (auto) 1.1 % (0.0-2.0); Eosinophils # (auto) 0.4 10 ^3/uL (0-0.8); Eosinophils % (auto) 9.3 % (0.0-7.0); Hematocrit 38.3 % (36.0-46.0); Hemoglobin 13.1 g/dL (12.2-16.2); Lymphocytes # (auto) 1.1 10 ^3/uL (0.4-5.4); Lymphocytes % (auto) 28.2 % (10.0-50.0); Mean Corpuscular Hemoglobin 34.9 pg (28.0-32.0); Mean Corpuscular Hgb Conc. 34.1 g/dL (32.0-36.0); Mean Corpuscular Volume 102.4 fL (80.0-100.0); Monocytes # (auto) 0.3 10 ^3/uL (0-1.3); Monocytes % (auto) 6.8 % (0.0-12.0); Neutrophils # (auto) 2.2 10 ^3/uL (1.6-8.6); Neutrophils % (auto) 54.6 % (37.0-80.0); Nucleated Red Blood Cells % 0.1 %; Red Blood Cells 3.75 10^6/uL (4.0-5.20); Red Cell Distribution Width 12.6 % (11.8-14.3)
[2023-09-01 11:13] LABS: Chloride 106 mmol/L (98-107); Potassium 4.5 mmol/L (3.5-5.1); Sodium 141 mmol/L (136-145)
[2023-09-01 11:14] LABS: Anion Gap 6 (5-15); Calcium 9.6 mg/dL (8.5-10.1); Carbon Dioxide 29 mmol/L (20-30)
[2023-09-01 11:19] LABS: BUN/Creatinine Ratio 21.3 (10.0-20.0); Blood Urea Nitrogen 19 mg/dL (9-23); Glucose 97 mg/dL (74-106)
[2023-09-01] MEDS: ACETAMINOPHEN 500 MG TAB PO ONE (12:52)
[2023-09-01] MEDS: HYDROcodone-ACET 5/325MG TAB PO ONE (18:20)
[2023-09-01] MEDS: DONNATAL 5ml ORAL Elix (BELLADONNA ALK-PHENOBARB) PO ONE (18:20)
[2023-09-01] MEDS: MAALOX PLUS or MAALOX 30 ML PO ONE (18:20)
[2023-09-01] MEDS: LIDOCAINE VISCOUS 2% 15ML UD PO ONE (18:20)
[2023-09-01] MEDS ORDERED: MORPHINE SULFATE INJ 2 MG/ml SYRG IV PRN (22:30)
[2023-09-01] MEDS: ACETAMINOPHEN 500 MG TAB PO PRN (23:10)
[2023-09-02] VITALS (12 sets, daily range): BP systolic 112–127; BP diastolic 58–71; PULSE 55–66; RESP 16–18; TEMP 97.6–98.3; O2SAT 93–98
[2023-09-02] MEDS: ALPRAZolam 0.25 MG TAB PO PRN (02:40)
[2023-09-02] MEDS: ASPirin-EC 81 mg tab PO SCH (10:38)
[2023-09-02] MEDS: POTASSIUM CHL 20 Meq TABLET PO SCH (10:39)
[2023-09-02] MEDS: FUROSEMIDE 40 MG TAB PO SCH (10:39)
[2023-09-02] MEDS: SPIRONOLACTONE 25 MG TAB PO SCH (10:39)
[2023-09-02] MEDS: PANTOPRAZOLE 40 MG TAB PO SCH (10:40)
[2023-09-02] MEDS: MULTIPLE VITAMINS W/ MINERALS TAB PO SCH (10:40)
[2023-09-02] MEDS ORDERED: ALBUTEROL SULF HFA 90MCG INH 200DOSE IN PRN (13:30)
[2023-09-02] MEDS ORDERED: PATIENTS OWN MEDICATION (Zolpidem Tartrate (Ambien) 1 TAB) PO PRN (13:30)
[2023-09-02] MEDS ORDERED: ZOLPIDEM TARTRATE 5 MG TAB PO PRN (14:00)
[2023-09-02] MEDS ORDERED: IOHEXOL 350 MG/ML 100ML IJ ONE (16:03)
[2023-09-02] MEDS ORDERED: ALBUTEROL SULF 2.5 MG/0.5ML(0.5%) NEB SOLN NEB PRN (18:00)
[2023-09-02] MEDS: ACETAMINOPHEN 325 MG TAB PO PRN (21:00)
[2023-09-02] MEDS ORDERED: PATIENTS OWN MEDICATION (Simvastatin 1 TAB) PO SCH (22:00)
[2023-09-02] MEDS: ATORVASTATIN 20 MG TAB PO SCH (22:03)
[2023-09-02] MEDS: ALPRAZolam 0.5 MG TAB PO PRN (23:17)
[2023-09-02] MEDS: DOCUSATE SOD 100 MG CAP PO ONE (23:18)
[2023-09-03] VITALS (10 sets, daily range): BP systolic 98–120; BP diastolic 63–116; PULSE 54–66; RESP 16–20; TEMP 97.4–98.6; O2SAT 93–99
[2023-09-03] MEDS: METOPROLOL SUCCINATE XL 50 MG TAB PO SCH (06:33)
[2023-09-03] MEDS ORDERED: PATIENTS OWN MEDICATION (Metoprolol Succinate (Metoprolol Succinate Er) 1 TAB) PO SCH (07:00)
[2023-09-03] MEDS ORDERED: ASCORBIC ACID PO SCH (10:00)
[2023-09-03] MEDS: ASCORBIC ACID 500 MG TAB PO SCH (10:52)
[2023-09-03] MEDS: DOCUSATE SOD 100 MG CAP PO PRN (13:57)
[2023-09-04] VITALS (10 sets, daily range): BP systolic 100–118; BP diastolic 51–71; PULSE 65–114; RESP 18–71; TEMP 97.3–99.4; O2SAT 94–99
[2023-09-04] MEDS: NITROGLYCERIN 0.4 MG SL TAB SL PRN (23:02)
[2023-09-05 05:00] VITALS: BP 113/67; PULSE 56; RESP 18; TEMP 98.2; O2SAT 98
[2023-09-05 08:00] VITALS: PULSE 65
[2023-09-05 08:46] VITALS: O2SAT 96
[2023-09-05 10:27] VITALS: BP 124/59; PULSE 65; RESP 18; TEMP 97.6; O2SAT 98
[2023-09-05 10:35] LABS: Eosinophils # (auto) 0.2 10 ^3/uL (0-0.8); Lymphocytes # (auto) 1.3 10 ^3/uL (0.4-5.4); Mean Corpuscular Hgb Conc. 33.9 g/dL (32.0-36.0); Monocytes # (auto) 0.3 10 ^3/uL (0-1.3); Nucleated Red Blood Cells % 0.1 %
[2023-09-05] MEDS: DOXYCYCLINE 100 MG TAB/CAP PO SCH (10:35)
[2023-09-05 10:37] LABS: Basophils # (auto) 0 10 ^3/uL (0-0.2); Basophils % (auto) 0.8 % (0.0-2.0); Hematocrit 38.2 % (36.0-46.0); Lymphocytes % (auto) 25.7 % (10.0-50.0); Mean Corpuscular Volume 103.2 fL (80.0-100.0); Monocytes % (auto) 6.2 % (0.0-12.0); Neutrophils # (auto) 3.2 10 ^3/uL (1.6-8.6); Neutrophils % (auto) 63.3 % (37.0-80.0); Red Cell Distribution Width 12.4 % (11.8-14.3); White Blood Cell 5.1 10^3/uL (4.4-10.8)
[2023-09-05 10:42] LABS: Hepatitis B Surface Antigen Negative (Negative)
[2023-09-05 10:54] LABS: Alanine Aminotransferase 15 U/L (7-40); Albumin 4.3 g/dL (3.2-4.8); Alkaline Phosphatase 82 U/L (46-116); Anion Gap 4 (5-15); Aspartate Aminotransferase 17 U/L (13-40); Bilirubin, Total 1.3 mg/dL (0.2-1.0); Blood Urea Nitrogen 19 mg/dL (9-23); Calcium 9.6 mg/dL (8.7-10.4); Carbon Dioxide 28 mmol/L (20-30); Chloride 106 mmol/L (98-107); Glucose 122 mg/dL (74-106); Potassium 3.8 mmol/L (3.5-5.1); Sodium 138 mmol/L (136-145); Total Protein 6.7 g/dL (5.7-8.2)
[2023-09-05 11:04] LABS: Hepatitis C Antibody Negative (Negative)
[2023-09-05 13:00] VITALS: BP 127/52; PULSE 65; RESP 18; TEMP 97.5; O2SAT 98
== END 2023-09-05 14:43 | disposition home or self-care (01) | DRG 103 ==
LOC: ER 10:03 → EDBD 10:03 → EDUNIT# 10:03 → TELE-CENTR 19:03 → TELE 23:00 → TELE-CENTR 23:30
PROVIDERS: ADMIT Internal Medicine Cardiovascular Disease; ATTEND Internal Medicine Cardiovascular Disease
DX: R51.9 Headache, unspecified (principal); I42.0 Dilated cardiomyopathy; I50.22 Chronic systolic (congestive) heart failure; J32.9 Chronic sinusitis, unspecified; I25.5 Ischemic cardiomyopathy; F41.9 Anxiety disorder, unspecified; E78.5 Hyperlipidemia, unspecified; I11.0 Hypertensive heart disease with heart failure; I25.10 Atherosclerotic heart disease of native coronary artery without angina pectoris; R27.0 Ataxia, unspecified; J44.9 Chronic obstructive pulmonary disease, unspecified; Z90.710 Acquired absence of both cervix and uterus; Z90.49 Acquired absence of other specified parts of digestive tract; Z82.49 Family history of ischemic heart disease and other diseases of the circulatory system; Z95.810 Presence of automatic (implantable) cardiac defibrillator; Z82.5 Family history of asthma and other chronic lower respiratory diseases; Z83.3 Family history of diabetes mellitus; Z80.0 Family history of malignant neoplasm of digestive organs; Z80.42 Family history of malignant neoplasm of prostate; Z82.61 Family history of arthritis; Z88.6 Allergy status to analgesic agent; Z88.1 Allergy status to other antibiotic agents; Z88.0 Allergy status to penicillin; Z87.891 Personal history of nicotine dependence
CPT/HCPCS: 36415; 70450; 70496; 80048; 80053; 81001; 84484; 85025; 86803; 87340; 93005; 97110; 97116; 97163; 97530; G0378

== ENCOUNTER → 2023-11-29 | Outpatient (CLI) | payer MEDICARE ==
[~2023-11-29] VITALS: Ht 152.4 cm; Wt 81.2 kg
[~2023-11-29] MED LIST changes: +ADENOSINE 68 MG in GIVE UN-DILUTED 0 ML IV ONE; +ADENOSINE 90 MG/30 ML INJ IV ONE
== END | disposition home or self-care (01) ==
LOC: Rad HDHVI 09:15
PROVIDERS: ATTEND Internal Medicine Cardiovascular Disease
DX: I11.0 Hypertensive heart disease with heart failure (principal); I50.43 Acute on chronic combined systolic (congestive) and diastolic (congestive) heart failure; I42.1 Obstructive hypertrophic cardiomyopathy; E78.2 Mixed hyperlipidemia; J44.9 Chronic obstructive pulmonary disease, unspecified; I25.10 Atherosclerotic heart disease of native coronary artery without angina pectoris; I25.5 Ischemic cardiomyopathy; E78.5 Hyperlipidemia, unspecified; F41.9 Anxiety disorder, unspecified; Z95.810 Presence of automatic (implantable) cardiac defibrillator; Z87.891 Personal history of nicotine dependence
CPT/HCPCS: 78452; 93005; 96374; 96375; A9500; J0153

== ENCOUNTER → 2024-01-23 | Outpatient (CLI) | payer MEDICARE, MEDICAID ==
[~2024-01-23] MED LIST changes: -ADENOSINE 68 MG in GIVE UN-DILUTED 0 ML IV ONE; -ADENOSINE 90 MG/30 ML INJ IV ONE; +OMEP20TA PO
[2024-01-23 12:20] VITALS: BP 109/67; PULSE 65; RESP 16; O2SAT 93
[2024-01-23 12:33] VITALS: BP 110/55; PULSE 65; RESP 18; O2SAT 95
--- NOTE | 2024-01-23 13:30 | DVH ---
EXAM: XY CHEST TWO VIEWS ROUTINE CLINICAL HISTORY: Pain COMPARISON: XY CHEST TWO VIEWS ROUTINE on DOS: 08/04/22, CHEST TWO VIEWS ROUTINE on DOS: 03/24/22, CXR2 on DOS: 03/24/22 TECHNIQUE: Frontal and lateral view of the chest was obtained FINDINGS: Lines and Tubes: Cardiac pacemaker projects over left chest wall. Lungs: No focal consolidation. Pleura: No effusion. No pneumothorax. Cardiomediastinal contours: Unremarkable Bones: No acute osseous abnormality. IMPRESSION: No acute cardiopulmonary disease.
== END | disposition home or self-care (01) ==
LOC: Rad HDHVI 12:07
PROVIDERS: ATTEND Internal Medicine Cardiovascular Disease
DX: Z01.818 Encounter for other preprocedural examination (principal); R07.9 Chest pain, unspecified; Z95.0 Presence of cardiac pacemaker
CPT/HCPCS: 71046; 93005; G0463

== ENCOUNTER 2024-01-26 07:01 | Inpatient (IN) | payer MEDICARE, MEDICAID ==
[2024-01-23 14:43] LABS: Basophils # (auto) 0.1 10 ^3/uL (0-0.2); Basophils % (auto) 1.1 % (0.0-2.0); Eosinophils # (auto) 0.1 10 ^3/uL (0-0.8); Eosinophils % (auto) 2.4 % (0.0-7.0); Hematocrit 39.5 % (36.0-46.0); Hemoglobin 13.7 g/dL (12.2-16.2); Lymphocytes # (auto) 1.9 10 ^3/uL (0.4-5.4); Lymphocytes % (auto) 30.7 % (10.0-50.0); Mean Corpuscular Hemoglobin 35.9 pg (28.0-32.0); Mean Corpuscular Hgb Conc. 34.8 g/dL (32.0-36.0); Mean Corpuscular Volume 103.2 fL (80.0-100.0); Monocytes # (auto) 0.5 10 ^3/uL (0-1.3); Monocytes % (auto) 7.7 % (0.0-12.0); Neutrophils # (auto) 3.5 10 ^3/uL (1.6-8.6); Neutrophils % (auto) 58.1 % (37.0-80.0); Nucleated Red Blood Cells % 0.1 %; Platelet Count (auto) 187 10^3/uL (140-450); Red Blood Cells 3.83 10^6/uL (4.0-5.20); White Blood Cell 6.1 10^3/uL (4.4-10.8)
[2024-01-23 14:59] LABS: INR 1.01 (0.9-1.15); Partial Thromboplastin Time 25.2 SEC (24.5-34.5); Prothrombin Time 10.7 sec (9.3-11.8)
[2024-01-23 15:32] LABS: Anion Gap 8 (5-15); Carbon Dioxide 29 mmol/L (20-31); Chloride 105 mmol/L (98-107); Potassium 4.3 mmol/L (3.5-5.1); Sodium 142 mmol/L (136-145)
[2024-01-23 15:38] LABS: Blood Urea Nitrogen 19 mg/dL (9-23); Glucose 95 mg/dL (74-106)
[~2024-01-26] VITALS: Ht 182.9 cm; Wt 82.4 kg
[2024-01-26] VITALS (16 sets, daily range): BP systolic 55–122; BP diastolic 44–67; PULSE 60–70; RESP 12–20; TEMP 96.4–97.3; O2SAT 95–99
[~2024-01-26 07:01] MED LIST changes: -ASCO500C49 PO; -MISCCAP66 PO; -PANT40T PO; -ZINC50TA7 PO; -ZOLP10TA PO
[2024-01-26] MEDS: LORazepam 2MG/ML-1ML VIAL IV ONE (09:15)
[2024-01-26] MEDS: VANCOMYCIN HCL 1000 MG VL ONE (09:33)
[2024-01-26] MEDS: fentaNYL CITRATE 100 MCG/2 ML VL ONE (09:34)
[2024-01-26] MEDS: MIDAZOLAM HCL 2MG/2ML 2ml VIAL (1mg/ml) ONE (09:34)
[2024-01-26] MEDS: LIDOCAINE 2%HCL (LOCAL ANESTH.) INJ 20ML MDV ONE (09:34)
[2024-01-26] MEDS: VANCOMYCIN 1GM/200ML PREMIX 200 ML IV ONE (09:34)
--- NOTE | 2024-01-26 10:36 | DVHHP ---
ADMIT DATE: 01/26/2024 HISTORY OF PRESENT ILLNESS: An 83-year-old with dilated cardiomyopathy, now to undergo Bi-V AICD implantation. The patient initially had an AICD implanted in 2009 and since then, the patient had a replacement approximately 6 years ago and now has another replacement in 2023. PERTINENT MEDICAL HISTORY: Significant for hypertension, hyperlipidemia. History of COPD. Remote history of tobacco use, discontinued smoking some 30 years ago. History of heart failure, systolic heart failure with left ventricular ejection fraction less than 30%. CURRENT MEDICATIONS: Include aspirin, Lasix, metoprolol, spironolactone, and simvastatin. She is also on home O2 therapy because of chronic lung disease as well. She denies any history of diabetes. No history of renal insufficiency. Denies any history of CVA. Denies any history of peripheral vascular disease, however. No history of myocardial infarction, even though she had angioplasty of the coronary anatomy. REVIEW OF SYSTEMS: She denies any fever, chills, melena, hematochezia, hematemesis or hemoptysis. No bleeding diathesis. No history of any GI symptomatology, inflammatory bowel disease or irritable bowel syndrome, or diarrhea or constipation. No liver disease. No history of any neurological disorders, such as seizures. Denies any swallowing difficulties. Denies any neurological symptoms as well. PHYSICAL EXAMINATION: VITAL SIGNS: Blood pressure is 122/84, pulse of 70 and regular, O2 saturation 98% on 2 liters. HEENT: Pupils are reactive. Funduscopic exam shows no AV nicking, no exudates, no papilledema. Sclerae are anicteric. Extraocular muscles are intact. Tympanic membranes are moist. Oral mucosa moist. Posterior pharynx without any exudates. NECK: No JVD appreciated. Carotid pulses are 2+ symmetrical. No cervical adenopathy. No supraclavicular adenopathy. PULMONARY: Clear to auscultation. Tympanic to percussion. No rhonchi, no wheezes, no egophony. CARDIOVASCULAR: Regular rate. PMI is diffuse; however, there is a soft 1/6 systolic murmur along the left sternal border. ABDOMEN: Obese. Unable to appreciate an organomegaly. Stool guaiac is negative. Liver approximately 5 cm. No epigastric tenderness, no suprapubic tenderness, no CVA tenderness. NEUROLOGIC: The patient is intact. EXTREMITIES: Distal pulses are present. ASSESSMENT AND PLAN: Thus, the patient with dilated cardiomyopathy with coronary artery disease, now to undergo Bi-V AICD generator change. Risks and benefits were explained to the patient. Donny Castillo MD SA/MISSAEL TID: [id number] RECEIPT: [id number]
[2024-01-26] MEDS ORDERED: NITROGLYCERIN 0.4 MG SL TAB SL PRN (10:45)
[2024-01-26] MEDS ORDERED: ACETAMINOPHEN 325 MG TAB PO PRN (10:45)
[2024-01-26] MEDS ORDERED: HYDROcodone-ACET 5/325MG TAB PO PRN (10:45)
--- NOTE | 2024-01-26 11:02 | DVHDS ---
DATE OF DISCHARGE: 01/26/2024 DISCHARGE DIAGNOSES: Dilated cardiomyopathy, heart failure with reduced ejection fraction, chronic. HOSPITAL COURSE: The patient underwent Bi-V AICD generator change, [employer] system. The patient will be discharged home. Follow up with me in 1 week. Stable at the time of discharge. ACTIVITY: As instructed. DIET: Will be 2 g sodium diet. Donny Castillo MD SA/NAVID TID: [id number] RECEIPT: [id number]
[2024-01-26] MEDS ORDERED: ALPRAZolam 0.25 MG TAB PO PRN (11:15)
--- NOTE | 2024-01-26 11:32 | DVHOP ---
DATE OF SURGERY: 01/26/2024 PROCEDURES PERFORMED: * Explantation of Bi-V AICD. * Implantation of new Bi-V AICD. INDICATIONS: The leads are chronic, implanted in 2009; therefore, they are not MRI compatible. The patient also had conscious sedation given as well. Risks and benefits were explained to the patient. The patient understands and agrees. DESCRIPTION OF PROCEDURE: The patient was prepped and draped in a sterile condition. 1% Xylocaine used to anesthetize the left subclavicular region. Using a 10 blade, linear incision was made using blunt dissection, electrocautery, pocket was then dissected out. The scar tissue was excised as well. The old generator was explanted. The new generator was implanted. The generator was implanted into the pocket. The pocket was irrigated using vancomycin saline solution, then pocket was closed using 3-0 Monoderm subcutaneous sutures followed by 3-0 Monoderm subcuticular sutures. There were no complications. The patient tolerated the procedure well. RESULTS: The patient has implantation of a new device, [employer] David 7 HF-T, model #819278, serial #[id number]. The LV lead is Zeeshan Celebrity aeroplane pilot, serial #[id number]. RV lead is Zeeshan Bigila 65-18, serial #[id number]. Atrial lead is Zeeshan Tilda R53, model #[id number]. Threshold parameters atrium, P-wave amplitude of 1.9 millivolts, threshold of 0.5 volts at 0.4 milliseconds pulse duration, pacing impedance of 445 ohms. Right ventricular lead, R-wave amplitude of 3.6 millivolts, threshold 1.7 volts at 0.4 milliseconds pulse duration, pacing impedance of 385 ohms. LV lead, R-wave amplitude of 12.2 millivolts, threshold 1.7 volts at 0.4 milliseconds pulse duration, pacing impedance of 850 ohms, shock impedance 53 ohms. CONCLUSION: The patient had successful explantation of Bi-V AICD generator and implantation of new Bi-V AICD generator. Donny Castillo MD SA/NAVID/SATURNINO TID: [id number] RECEIPT: [id number]
[2024-01-26] MEDS: VANCOMYCIN 1GM/200ML PREMIX 200 ML IV SCH (21:21)
[2024-01-26] MEDS: ATORVASTATIN 20 MG TAB PO SCH (21:22)
[2024-01-27] MEDS: ACETAMINOPHEN 500 MG TAB PO PRN (02:26)
[2024-01-27 05:00] VITALS: BP 99/48; PULSE 77; RESP 18; TEMP 96; O2SAT 100
[2024-01-27] MEDS: METOPROLOL SUCCINATE XL 50 MG TAB PO SCH (05:55)
[2024-01-27 08:00] VITALS: PULSE 65; RESP 18; O2SAT 99
[2024-01-27 09:00] VITALS: BP 105/46; PULSE 65; RESP 16; TEMP 97.4; O2SAT 96
[2024-01-27 09:03] VITALS: BP 99/48; PULSE 77
[2024-01-27] MEDS ORDERED: POTASSIUM CHL 20 Meq TABLET PO SCH (10:00)
[2024-01-27] MEDS ORDERED: LEVOTHYROXINE SODIUM 25 MCG TAB PO SCH (10:00)
[2024-01-27] MEDS ORDERED: MULTIPLE VITAMINS W/ MINERALS TAB PO SCH (10:00)
[2024-01-27] MEDS ORDERED: FUROSEMIDE 40 MG TAB PO SCH (10:00)
[2024-01-27] MEDS ORDERED: OMEPRAZOLE 20 MG TAB PO SCH (10:00)
[2024-01-27] MEDS ORDERED: SPIRONOLACTONE 25 MG TAB PO SCH (10:00)
== END 2024-01-27 10:10 | disposition home or self-care (01) | DRG 245 ==
LOC: CATH 07:01 → CENTRAL 10:36 → TELE-CENTR 19:57
PROVIDERS: ADMIT Internal Medicine Cardiovascular Disease; ATTEND Internal Medicine Cardiovascular Disease
PROC: 0JPT0PZ Removal of Cardiac Rhythm Related Device from Trunk Subcutaneous Tissue and Fascia, Open Approach (ICD-10-PCS; principal; 2024-01-26)
PROC: 0JH609Z Insertion of Cardiac Resynchronization Defibrillator Pulse Generator into Chest Subcutaneous Tissue and Fascia, Open Approach (ICD-10-PCS; 2024-01-26)
DX: I11.0 Hypertensive heart disease with heart failure (principal); I42.0 Dilated cardiomyopathy; I50.22 Chronic systolic (congestive) heart failure; E78.5 Hyperlipidemia, unspecified; J44.9 Chronic obstructive pulmonary disease, unspecified; I25.10 Atherosclerotic heart disease of native coronary artery without angina pectoris; Z87.891 Personal history of nicotine dependence; Z95.810 Presence of automatic (implantable) cardiac defibrillator
CPT/HCPCS: 33263; 36415; 71046; 80048; 85025; 85610; 85730; 93005; 99152; G0378; G0463; J2250

== ENCOUNTER 2024-02-16 09:55 | Inpatient (IN) | payer MEDICARE ==
[~2024-02-16] VITALS: Ht 154.9 cm; Wt 79.0 kg
[2024-02-16] VITALS (7 sets, daily range): BP systolic 112; BP diastolic 46–61; PULSE 65–82; RESP 15–17; TEMP 97.9; O2SAT 89–98
--- NOTE | 2024-02-16 10:14 | ED.PDOC ---
GI ASSESSMENT HPI Comments 83 y.o female presents to the ED via EMS for a chief complaint of abdominal pain associated with nausea, vomiting, diarrhea, and SOB that started this morning. Patient described pain as an aching sensation, localized to the epigastric region and rates it a 6/10 on the pain scale. Patient also complaints of dizziness. EMS reports on scene, patient's heart rate read 30 with 12 lead EKG reading AFIB. Patient has a history of 3 pacemaker replacement, on scene was paced reading when firing up to 70-80 HR. She denies any fever, chills, hematuria, dysuria, hematemesis. Chief Complaint: Abdominal Pain Time Seen by MD: 10:03 Primary Care Provider: DONNA Reviewed Notes: Nurses Notes, Tank Operator Notes, Medications, Allergies Allergies: Coded Allergies: Ciprofloxacin (Verified Allergy, Unknown, 01/23/24) Ibuprofen (Verified Allergy, Unknown, UNKNOWN, 08/04/22) Morphine (Verified Allergy, Unknown, 01/23/24) Penicillins (Verified Allergy, Unknown, 01/23/24) Home Meds Reported Medications Omeprazole (Gnp Omeprazole) 20 Mg Tab, 1 TAB PO DAILY, #90 TAB 1 Refill 01/23/24 Multiple Vitamins W/ Minerals (Multivitamin Women 50+) 1 Tab Tab, 1 TAB PO DAILY for SUPPLEMENT 08/05/22 Cetirizine HCl (Allergy Relief) 5 Mg Tab, 1 TAB PO for ALLERGIES 08/05/22 Cholecalciferol (D3) 1,000 Unit Cap, 1 CAP PO DAILY for SUPPLEMENT 08/05/22 Aspirin (Aspirin) 81 Mg Tab, 1 TAB PO DAILY for CAD 08/05/22 Metoprolol Succinate (Metoprolol Succinate Er) 25 Mg Tab, 1 TAB PO QAM for HYPERTENSION 08/04/22 Alprazolam (Xanax) 0.25 Mg Tb, 1 TAB PO BID PRN for ANXIETY 08/04/22 Spironolactone (Aldactone) 25 Mg Tab, 1 TAB PO DAILY for EDEMA 08/04/22 Levothyroxine Sodium (Levothyroxine Sodium) 75 Mcg Cap, 1 CAP PO DAILY for HYPOTHYROIDISM 08/04/22 Acetaminophen (Acetaminophen) 500 Mg Tab, 1 TAB PO DIRECTED PRN for MILD PAIN (1-3 PAIN SCALE) 02/05/20 Albuterol Sulfate (VENTOLIN MDI) 90 Mcg Ih, 2 PUFF IN BID PRN for SHORTNESS OF BREATH 06/20/17 Oxybutynin Chloride (Ditropan Xl) 5 Mg Tab, 2 TAB PO BID for OVERACTIVE BLADDER 06/20/17 Potassium Chloride (KLOR-CON TABLET) 20 Meq Tb, 1 TAB PO DAILY for SUPPLEMENT 07/27/15 Simvastatin (Simvastatin) 20 Mg Tab, 1 TAB PO HS for HIGH CHOLESTEROL 07/27/15 Furosemide (LASIX TABLET) 40 Mg Tb, 1 TAB PO DAILY for FLUID RETENTION 07/27/15 Information Source: Patient, Emergency Med Personnel Mode of Arrival: EMS Timing: Hours Duration: Since onset Quality: Aching Vomitus: Soft Stool: Loose Severity: Moderate Recent: None Recent Hx of: None Pain Location: Epigastric Modifying Factors: Nothing Associated sign and symptoms: Nausea, Vomiting, Diarrhea, Abdominal Pain Past Medical History PAST MEDICAL HISTORY: Anxiety, Arthritis, CAD, CHF, High Lipids, HTN, Thyroid Surgical History: Cholecystectomy, Hysterectomy, Pacemaker, Tonsillectomy HALL MANAGER History: No Pertinent HALL MANAGER History Family History Family History: Reviewed,noncontributory to illness, Family hx of heart gabriella Social History Smoker: Non-Smoker Alcohol: Rarely Drugs: Denies Drug Use Lives In: Home Constitutional: denies: chills, diaphoresis, fatigue, fever, malaise, sweats, weakness, others EENTM: denies: blurred vision, double vision, ear bleeding, ear discharge, ear drainage, ear pain, ear ringing, eye pain, eye redness, hearing loss, mouth pain, mouth swelling, nasal discharge, nose bleeding, nose congestion, nose pain, photophobia, tearing, throat pain, throat swelling, voice changes, others Respiratory: reports: SOB at rest, shortness of breath, SOB with excertion; denies: cough, hemoptysis, orthopnea, stridor, wheezing, others Cardiovascular: denies: chest pain, dizzy spells, diaphoresis, Dyspnea on e xertion, edema, irregular heart beat, left arm pain, lightheadedness, palpitations, PND, syncope, others Gastrointestinal: reports: abdominal pain, diarrhea, nausea, vomiting; denies: abdomen distended, blood streaked bowels, constipated, dysphagia, difficulty swallowing, hematemesis, melena, poor appetite, poor fluid intake, rectal bleeding, rectal pain, others Genitourinary: denies: abnormal vagina bleeding, burning, dyspareunia, dysuria, flank pain, frequency, hematuria, incontinence, pain, , vagina discharge, urgency, others Neurological: reports: dizziness; denies: fainting, headache, left sided numbness, left sided weakness, numbness, paresthesia, pre-existing deficit, right sided numbness, right sided weakness, seizure, speech problems, tingling, tremors, weakness, others Musculoskeletal: denies: back pain, gout, joint pain, joint swelling, muscle pain, muscle stiffness, neck pain, others Integumetry: denies: bruises, change in color, change in hair/nails, dryness, laceration, lesions, lumps, rash, wounds, others Allergic/Immunocompromised: denies: Difficulty Healing, Frequent Infections, Hives, Itching, others Hematologic/Lymphatic: denies: anemia, blood clots, easy bleeding, easy bruising, swollen glands, others Endocrine: denies: excessive hunger, excessive sweating, excessive thirst, excessive urination, flushing, intolerance to cold, intolerance to heat, unexplained weight gain, unexplained weight loss, others Psychiatric: denies: anxiety, bipolar disorder, depression, hopeless, panic disorder, schizophrenia, sleepless, suicidal, others All Other Systems: Reviewed and Negative Physical Exam General Appearance: Moderate Distress HEENT: Normal ENT Inspection, Pharynx Normal, TMs Normal Neck: Full Range of Motion, Non-Tender, Normal, Normal Inspection Respiratory: Chest Non-Tender, Lungs Clear, No Accessory Muscle Use, No Respiratory Distress, Normal Breath Sounds Cardiovascular: Bradycardia Breast Exam: Deferred Gastrointestinal: No Organomegaly, Non Tender, No Pulsatile Mass, Normal Bowel Sounds, Soft Genitalia: Deferred Pelvic: Deferred Rectal: Deferred Extremities: No calf tenderness, Normal capillary refill, Normal inspection, Normal range of motion, Non-tender, No pedal edema Musculoskeletal : Apperance: Normal Neurologic: Alert Cerebellar Function: NOT DONE Reflexes: NOT DONE Skin: Normal Color Peripheral Pulses: 3+ Radial (R), 3+ Radial (L) Lymphatic: No Adenopathy Was a procedure done? Was a procedure done?: No GI differential Dx Differential Diagnosis: Angina/CA, Constipation, Diverticular disease, Esophagitis, Gastritis/PUD, Gastroenteritis, Dehydration, Electrolyte Imbalance, Food Poisoning, Viral X-Ray, Labs, Meds, VS Vital Signs Date Time Temp Pulse Resp B/P (MAP) Pulse Ox O2 Delivery O2 Flow Rate FiO2 02/16/24 10:44 75 15 92 Nasal Cannula* 2 28 02/16/24 10:43 97.8 75 15 106/59 (75) 91 97.8 02/16/24 10:30 97.8 35 18 110/56 (74) 95 02/16/24 10:02 82 Lab Test 02/16/24 10:36 Range/Units White Blood Count Pending Red Blood Count Pending Hemoglobin Pending Hematocrit Pending Mean Corpuscular Volume Pending Mean Corpuscular Hemoglobin Pending Mean Corpuscular Hemoglobin Concent Pending Red Cell Distribution Width Pending Platelet Count Pending Mean Platelet Volume Pending Neutrophils (%) (Auto) Pending Lymphocytes (%) (Auto) Pending Monocytes (%) (Auto) Pending Basophils (%) (Auto) Pending Neutrophils # (Auto) Pending Lymphocytes # (Auto) Pending Monocytes # (Auto) Pending Sodium Level Pending Potassium Level Pending Chloride Level Pending Carbon Dioxide Level Pending Anion Gap Pending Blood Urea Nitrogen Pending Creatinine Pending Glomerular Filtration Rate Calc Pending BUN/Creatinine Ratio Pending Serum Glucose Pending Calcium Level Pending Lipase Pending Patient alert. Complaining of abdominal pain. Bradycardia. Pacemaker in place. Answering questions. EKG reviewed does show bradycardia. Reviewed her previous visit. Explained to the patient. Continue cardiac monitoring. Time of 1ST Reevaluation: 10:14 Reevaluation 1ST: Unchanged Patient Education/Counseling: Diagnosis, Treatment, Prognosis Family Education/Counseling: No Family Present Additional Information I reviewed the following notes from the pt's past medical encounters: 01/26/24- S/P AICD generated change The following tests were ordered, and results were reviewed by me: LAB, PHA, EKG Reviewed Results- LAB including UA Additional information was gathered from interviewing the following independent historians: Paramedics I discussed treatments and results with medical personnel and patient Departure 1 Departure Time of Disposition: 10:18 Impression: Primary Impression: Bradycardia Additional Impression: Gastroenteritis Disposition: ADMITTED INPATIENT Admit to: Med Surg Condition: Guarded Critical Care Note Critical Care Time?: Yes (45 min-critical care time only) Stability Stability form required: No I personally scribed for CORTEZ MCMILLAN MD ([email or web address]) on 02/16/24 at 10:14. Electronically submitted by Teresa Tenorio ([facility]). I personally scribed for CORTEZ MCMILLAN MD ([email or web address]) on 02/16/24 at 10:22. Electronically submitted by Teresa Tenorio ([facility]). I personally scribed for CORTEZ MCMILLAN MD ([email or web address]) on 02/16/24 at 11:47. Electronically submitted by Teresa Tenorio ([facility]). CORTEZ MCMILLAN MD Feb 16, 2024 10:14
[2024-02-16 11:40] LABS: Chloride 99 mmol/L (98-107); Potassium 3.7 mmol/L (3.5-5.1)
[2024-02-16 11:41] LABS: Anion Gap 7 (5-15); Calcium 9.4 mg/dL (8.7-10.4); Carbon Dioxide 28 mmol/L (20-31)
[2024-02-16 11:46] LABS: BUN/Creatinine Ratio 14.9 (10.0-20.0); Blood Urea Nitrogen 14 mg/dL (9-23); Glucose 93 mg/dL (74-106); Lipase 23 U/L (12-53)
[2024-02-16 11:51] LABS: Sodium 134 mmol/L (136-145)
[2024-02-16 11:52] LABS: Basophils # (auto) 0 10 ^3/uL (0-0.2); Eosinophils # (auto) 0.1 10 ^3/uL (0-0.8); Eosinophils % (auto) 1.2 % (0.0-7.0); Monocytes # (auto) 0.5 10 ^3/uL (0-1.3)
[2024-02-16 11:56] LABS: Basophils % (auto) 0.2 % (0.0-2.0); Hematocrit 37.7 % (36.0-46.0); Hemoglobin 12.8 g/dL (12.2-16.2); Lymphocytes # (auto) 1.3 10 ^3/uL (0.4-5.4); Lymphocytes % (auto) 10.9 % (10.0-50.0); Mean Corpuscular Hemoglobin 35.3 pg (28.0-32.0); Mean Corpuscular Hgb Conc. 33.9 g/dL (32.0-36.0); Mean Corpuscular Volume 104.2 fL (80.0-100.0); Monocytes % (auto) 4.2 % (0.0-12.0); Neutrophils # (auto) 10.1 10 ^3/uL (1.6-8.6); Neutrophils % (auto) 83.5 % (37.0-80.0); Nucleated Red Blood Cells % 0.1 %; Platelet Count (auto) 194 10^3/uL (140-450); Red Blood Cells 3.62 10^6/uL (4.0-5.20); Red Cell Distribution Width 12.4 % (11.8-14.3); White Blood Cell 12.1 10^3/uL (4.4-10.8)
[2024-02-16] MEDS: ONDANSETRON HCL 4 MG/2 ML VIAL IV ONE (12:19)
[2024-02-16] MEDS: HYDROmorphone HCL 2 MG/ML VL/or syr IV ONE (12:19)
--- NOTE | 2024-02-16 15:55 | DVH ---
CHEST RADIOGRAPH Indication: chest pain Technique: Single frontal view of the chest was obtained Comparison: XY CHEST PORTABLE on DOS: 10/27/22, XY CHEST PORTABLE on DOS: 08/21/22 FINDINGS: Lines and Tubes: Left-sided approach biventricular lead AICD with intact leads. Lungs: No focal consolidation. Pleura: No effusion. No pneumothorax. Cardiomediastinal contours: Moderate cardiomegaly. Bones: No acute osseous abnormality. Surgical clips are noted over the lower neck. IMPRESSION: No acute cardiopulmonary disease. Moderate cardiomegaly.
[2024-02-16] MEDS ORDERED: NITROGLYCERIN 0.4 MG SL TAB SL PRN ×2 (16:00)
[2024-02-16] MEDS ORDERED: LORazepam 0.5 MG TAB PO PRN (16:00)
[2024-02-16] MEDS ORDERED: ALBUTEROL SULF HFA 90MCG INH 200DOSE IN PRN (16:00)
--- NOTE | 2024-02-16 16:35 | DVHHP2 ---
History of Present Illness Reason for Visit: chest pain History of Present Illness Gia Olmos is a 83YO F with pmHx of hypothyroidism, CAD, HTN, HLD, COPD, CHF, anxiety, arthritis, cholecystectomy, hysterectomy, tonsillectomy, and AICD placement in January 2024 who presents to the ED for chest pain, epigastric pain, N/V/D, sob, dizziness, and abdominal pain x1 day. Patient reports epigastric pain 2/10, aching, and constant. Also, reports coughing up phlegm yellow in color x 1 day. Patient also reports using a FWW and cane for mobility. Patient denies fever, chills, headache, back pain, and lightheadness. Cardiovascular: CAD, CHF, HTN, hyperipidemia Pulmonary: COPD Endocrine: Hypothyroidism Past Surgical History: Cholecystectomy, Hysterectomy, Tonsillectomy Past Surgical History AICD placed January 2024 Thyroidectomy >10 years ago Family History: CVA Smoke: Quit ALCOHOL: none Drugs: None Lives: Alone Domestic Violence: Neg Review of Systems Constitutional: No: Fever, Chills, Sweats, Weakness, Malaise, Other Eyes: No: Pain, Vision change, Conjunctivae inflammation, Eyelid inflammation, Other, Redness ENT: Other (throat irritation); No: Ear pain, Ear discharge, Nose pain, Nose discharge, Nose congestion, Mouth pain, Mouth swelling, Throat pain, Throat swelling Respiratory: Cough, Shortness of breath, Sputum; No: Dry, SOB with excertion, Wheezing, Hemoptysis, Pleuritic Pain, Wheezing, Other Cardiovascular: Chest Pain Gastrointestinal: Nausea, Vomiting, Abdominal Pain Genitourinary: No Dysuria, No Frequency, No Incontinence, No Hematuria, No Retention, No Other Musculoskeletal: No: other, neck pain, shoulder pain, arm pain, back pain, hand pain, leg pain, foot pain Skin: No: Rash, Lesions, Jaundice, Bruising, Other Neurological: No: Weakness, Numbness, Incoordination, Change in speech, Confusion, Seizures, Other Allergies: Coded Allergies: Ciprofloxacin (Verified Allergy, Unknown, 01/23/24) Ibuprofen (Verified Allergy, Unknown, UNKNOWN, 08/04/22) Morphine (Verified Allergy, Unknown, 01/23/24) Penicillins (Verified Allergy, Unknown, 01/23/24) Exam Vital Signs Vital Signs Date Time Temp Pulse Resp B/P (MAP) Pulse Ox O2 Delivery O2 Flow Rate FiO2 02/16/24 14:29 97.9 81 17 112/46 (68) 94 97.9 02/16/24 10:44 Nasal Cannula* 2 28 General Appearance: Alert, Oriented X3, Cooperative, No acute distress HEENT: Atraumatic, PERRLA, EOMI, Mucous membr. moist/pink Respiratory: Clear to auscultation, Normal air movement Cardiovascular: Normal S1, Normal S2 Abdominal: Normal bowel sounds, Soft, No tenderness, No hepatospenomegaly Extremities: No clubbing, No cyanosis, No edema, Normal pulses, No tenderness/swelling Skin: No rashes, No breakdown, No significant lesion Neuro: Normal gait, Normal speech, Strength at 5/5 X4 ext, Normal tone, Sensation intact, Other (uses FWW and cane) Psych/Mental Status: Mental status NL, Mood NL Labs/Xrays Labs Test 02/16/24 10:36 Range/Units White Blood Count 12.1 H 4.4-10.8 10^3/uL Red Blood Count 3.62 L 4.0-5.20 10^6/uL Hemoglobin 12.8 12.2-16.2 g/dL Hematocrit 37.7 36.0-46.0 % Mean Corpuscular Volume 104.2 H 80.0-100.0 fL Mean Corpuscular Hemoglobin 35.3 H 28.0-32.0 pg Mean Corpuscular Hemoglobin Concent 33.9 32.0-36.0 g/dL Red Cell Distribution Width 12.4 11.8-14.3 % Platelet Count 194 140-450 10^3/uL Mean Platelet Volume 9.9 6.9-10.8 fL Neutrophils (%) (Auto) 83.5 H 37.0-80.0 % Lymphocytes (%) (Auto) 10.9 10.0-50.0 % Monocytes (%) (Auto) 4.2 0.0-12.0 % Eosinophils (%) (Auto) 1.2 0.0-7.0 % Basophils (%) (Auto) 0.2 0.0-2.0 % Neutrophils # (Auto) 10.1 H 1.6-8.6 10 ^3/uL Lymphocytes # (Auto) 1.3 0.4-5.4 10 ^3/uL Monocytes # (Auto) 0.5 0-1.3 10 ^3/uL Eosinophils # (Auto) 0.1 0-0.8 10 ^3/uL Basophils # (Auto) 0 0-0.2 10 ^3/uL Nucleated Red Blood Cells 0.1 % Sodium Level 134 L 136-145 mmol/L Potassium Level 3.7 3.5-5.1 mmol/L Chloride Level 99 98-107 mmol/L Carbon Dioxide Level 28 20-31 mmol/L Anion Gap 7 5-15 Blood Urea Nitrogen 14 9-23 mg/dL Creatinine 0.94 0.550-1.02 mg/dL Glomerular Filtration Rate Calc 61 >90 mL/min BUN/Creatinine Ratio 14.9 10.0-20.0 Serum Glucose 93 74-106 mg/dL Calcium Level 9.4 8.7-10.4 mg/dL Lipase 23 12-53 U/L CHEST RADIOGRAPH Indication: chest pain Technique: Single frontal view of the chest was obtained Comparison: XY CHEST PORTABLE on DOS: 10/27/22, XY CHEST PORTABLE on DOS: 08/21/22 FINDINGS: Lines and Tubes: Left-sided approach biventricular lead AICD with intact leads. Lungs: No focal consolidation. Pleura: No effusion. No pneumothorax. Cardiomediastinal contours: Moderate cardiomegaly. Bones: No acute osseous abnormality. Surgical clips are noted over the lower neck. IMPRESSION: No acute cardiopulmonary disease. Moderate cardiomegaly. Assessment/Plan Assessment/Plan Assessment/Plan: Atypical chest pain 2nd suspecting PNA Leukocytosis ekg -Vpaced cxr noted labs echo in August 2023 EF 30% acs protocol asa statin ekg am labs am trop ua cards cx - Dr. Hines IV Abx sputum cx Hypothyroidism continue home medications - levothyroxine CAD continue home medications - asa HLD continue home medications - simvastatin COPD O2 dependent - 2LNC at home prn resp txs HTN metop held d/t salo episode CHF continue home medications - lasix spironolactone FEN/PPX cardiac diet hl omeprazole Home medications reconciled Discussed plan of care with patient and nurse Admit to tele Plan discussed with: Patient My Orders Orders - ERNESTINE MCDONALD Procedure Category Date Status Time Chest Xray 1 View XY 02/16/24 Resulted 15:28 Date of Service: Feb 16, 2024 Billing Provider: ERNESTINE MCDONALD Common Visit Codes: [id number] INP/OBS CARE (MOD) ERNESTINE MCDONALD Feb 16, 2024 16:35
[2024-02-16] MEDS ORDERED: ALBUTEROL SULF 2.5 MG/0.5ML(0.5%) NEB SOLN NEB PRN (18:00)
[2024-02-16] MEDS ORDERED: levoFLOXacin 500MG 100 ML IV ONE (18:14)
--- NOTE | 2024-02-16 19:14 | ECG ---
[facility] Test Date: 2024-02-16 Test Time: 09:59:46 Pat Name: JONG BAKER Department: ED Room: 0217T Gender: F Baggage Clerk: CHRISTA : 1940 Requested By: CORTEZ MCMILLAN Order Number: [id number] Reading MD: Zya Brown Measurements Intervals [place] Rate: 82 P: 0 RI: 51 QRS: 252 QRSD: 130 T: 115 QT: 452 QTc: 528 Interpretive Statements Ventricular-paced complexes No further analysis attempted due to paced rhythm Electronically Signed On 02-17-2024 12:50:09 PST by Zay Brown Please click the below link to view image of tracing.
[2024-02-16] MEDS: MAALOX PLUS or MAALOX 30 ML PO ONE (19:30)
[2024-02-16] MEDS: levoFLOXacin 250MG 100 ML IV ONE (21:17)
[2024-02-16] MEDS: ACETAMINOPHEN 325 MG TAB PO PRN (21:32)
[2024-02-16] MEDS: ATORVASTATIN 20 MG TAB PO SCH (22:42)
[2024-02-16] MEDS: OXYBUTYNIN CHL 5 MG TAB PO SCH (22:43)
[2024-02-17] VITALS (13 sets, daily range): BP systolic 7–136; BP diastolic 32–59; PULSE 65–75; RESP 18; TEMP 97.4–98.2; O2SAT 93–99
[2024-02-17] MEDS: ONDANSETRON HCL 4 MG/2 ML VIAL IV PRN (01:32)
[2024-02-17] MEDS: ALPRAZolam 0.25 MG TAB PO PRN (01:32)
[2024-02-17 05:01] LABS: Urine Bacteria FEW /hpf (None Seen); Urine Blood Negative /uL (Negative); Urine Clarity Clear (Clear); Urine Color Colorless (Yellow); Urine Protein, UAD Negative (Negative); Urine Specific Gravity 1.004 (1.001-1.035); Urine Urobilinogen Normal (Negative); Urine WBC 69 /hpf (0 - 5); Urine pH 5.5 (5.0-9.0)
[2024-02-17 07:27] LABS: Basophils # (auto) 0 10 ^3/uL (0-0.2); Basophils % (auto) 0.2 % (0.0-2.0); Eosinophils # (auto) 0.2 10 ^3/uL (0-0.8); Hematocrit 35.5 % (36.0-46.0); Hemoglobin 12.2 g/dL (12.2-16.2); Lymphocytes # (auto) 0.9 10 ^3/uL (0.4-5.4); Lymphocytes % (auto) 12.8 % (10.0-50.0); Mean Corpuscular Volume 103.1 fL (80.0-100.0); Monocytes # (auto) 0.4 10 ^3/uL (0-1.3); Neutrophils # (auto) 5.4 10 ^3/uL (1.6-8.6); Red Blood Cells 3.44 10^6/uL (4.0-5.20)
[2024-02-17 07:31] LABS: Eosinophils % (auto) 3.3 % (0.0-7.0); Mean Corpuscular Hemoglobin 35.4 pg (28.0-32.0); Mean Corpuscular Hgb Conc. 34.3 g/dL (32.0-36.0); Neutrophils % (auto) 77.7 % (37.0-80.0); Platelet Count (auto) 160 10^3/uL (140-450); Red Cell Distribution Width 12.4 % (11.8-14.3)
[2024-02-17 07:34] LABS: Alanine Aminotransferase 12 U/L (7-40); Albumin 3.8 g/dL (3.2-4.8); Alkaline Phosphatase 75 U/L (46-116); Anion Gap 7 (5-15); Blood Urea Nitrogen 15 mg/dL (9-23); Calcium 9.3 mg/dL (8.7-10.4); Carbon Dioxide 30 mmol/L (20-31); Chloride 102 mmol/L (98-107); Glucose 98 mg/dL (74-106); Potassium 3.9 mmol/L (3.5-5.1); Sodium 139 mmol/L (136-145); Total Protein 5.8 g/dL (5.7-8.2)
[2024-02-17 07:44] LABS: Aspartate Aminotransferase 11 U/L (13-40); Bilirubin, Total 1.4 mg/dL (0.2-1.0)
[2024-02-17] MEDS: SPIRONOLACTONE 25 MG TAB PO SCH (10:00)
[2024-02-17] MEDS ORDERED: ASPirin 81 mg TAB PO SCH (10:00)
[2024-02-17] MEDS: SODIUM CHLORIDE 0.9% 250 ML IV ONE (12:00)
--- NOTE | 2024-02-17 13:33 | DVHPN2 ---
Progress Note - Dictate Date Seen: Feb 16, 2024 Medical Necessity Reason Pt with a Central, PICC or Fol: No Subjective PT WITH CHEST PAIN NEGATIVE TROPONIN LHC 0N 04/30 * Coronary angiography showed no flow restrictive lesions in the left anterior descending artery, left main right coronary artery as well as the circumflex territory. * Ventriculogram showed the patient with EF around 30% with an LVEDP of 11-12 mmHg with no gradient across the aortic valve. * Right heart catheterization showed MARLON pressure of 5, RV pressure of 37/5, PA pressure of 37/15 and a capillary wedge pressure of 10. NOW WITH ABD PAIN NON SPECIFIC CLINICAL EXAMINATION ON 01/28 PT HAD BiV AICD GENERATOR CHANGE UA SHOWS LEUKOCYTE vital signs Vital Sign Date Time Temp Pulse Resp B/P (MAP) Pulse Ox O2 Delivery O2 Flow Rate FiO2 02/17/24 09:00 97.8 68 18 110/32 (58) 96 97.8 02/17/24 00:30 Room Air* 0 21 Total Intake and Output 02/16/24 02/16/24 02/17/24 15:00 23:00 07:00 Intake Total 100 ml 40 ml Balance 100 ml 40 ml medications Current Medications Medications Dose Ordered Sig/Kike Route Start Time Stop Time Status Last Admin Dose Admin Aspirin 81 mg DAILY PO 02/17/24 10:00 UNV Acetaminophen 650 mg Q6HP PRN PO 02/16/24 16:00 02/16/24 21:32 650 MG Lorazepam 0.5 mg Q6HP PRN PO 02/16/24 16:00 Ondansetron HCl 4 mg Q4HP PRN IV 02/16/24 16:00 02/17/24 01:32 4 MG Nitroglycerin 0.4 mg Q5MINP PRN SL 02/16/24 16:00 Albuterol 90 mcg BID PRN IN 02/16/24 16:00 UNV Alprazolam 0.25 mg BID PRN PO 02/16/24 16:00 02/17/24 01:32 0.25 MG Aspirin 81 mg DAILY PO 02/17/24 10:00 Furosemide 40 mg DAILY PO 02/17/24 10:00 Multivitamins/ Minerals 1 tab DAILY PO 02/17/24 10:00 Potassium Chloride 20 meq DAILY PO 02/17/24 10:00 Spironolactone 25 mg DAILY PO 02/17/24 10:00 Hold Cholecalciferol 1,000 unit DAILY PO 02/17/24 10:00 Levothyroxine Sodium 75 mcg DAILY PO 02/17/24 10:00 Pantoprazole Sodium 40 mg DAILY PO 02/17/24 10:00 Oxybutynin Chloride 10 mg BID PO 02/16/24 22:00 02/16/24 22:43 10 MG Albuterol 2.5 mg Q6HPRN PRN NEB 02/16/24 18:00 Ceftriaxone Sodium 50 ml @ 100 mls/hr DAILY@09 IV 02/18/24 09:00 Atorvastatin Calcium 40 mg HS PO 02/17/24 22:00 UNV objective HEENT: Pupils are reactive. Funduscopic exam is benign. Sclerae anicteric. No exudates noted. Tympanic membranes are negative. Oral mucosa moist. Posterior pharynx without any exudates. NECK: Supple. No nuchal rigidity. No cervical adenopathy, no supraclavicular adenopathy, no axillary adenopathy. Carotid pulses are 2+ symmetrical, normal upstroke and contour. No JVD appreciated. Thyroid is within normal limits. PULMONARY: Clear to auscultation. No rhonchi, no wheezes, no egophony. CARDIOVASCULAR: Regular rate without S3, without S4. PMI is diffuse, however. ABDOMEN: Soft, nontender, normal bowel sounds. NEUROLOGIC: The patient is intact. laboratory and microbiology Laboratory Tests 02/17/24 06:58 Test 02/17/24 06:58 Range/Units Serum Glucose 98 74-106 mg/dL Problem List CHEST PAIN NEGATIVE TROPONIN LHC 0N 04/30 * Coronary angiography showed no flow restrictive lesions in the left anterior descending artery, left main right coronary artery as well as the circumflex territory. * Ventriculogram showed the patient with EF around 30% with an LVEDP of 11-12 mmHg with no gradient across the aortic valve. * Right heart catheterization showed MARLON pressure of 5, RV pressure of 37/5, PA pressure of 37/15 and a capillary wedge pressure of 10. NOW WITH ABD PAIN NON SPECIFIC CLINICAL EXAMINATION ON 01/28 PT HAD BiV AICD GENERATOR CHANGE UA SHOWS LEUKOCYTE HX OF HFrEF DILATED CM Assessment/Plan TRAET FOR UTI MAY DC HOME Plan discussed with: Patient DONNA MANN MD Feb 17, 2024 13:33
[2024-02-17] MEDS: POTASSIUM CHL 20 Meq TABLET PO SCH (13:46)
[2024-02-17] MEDS: PANTOPRAZOLE 40 MG TAB PO SCH (13:47)
[2024-02-17] MEDS: MULTIPLE VITAMINS W/ MINERALS TAB PO SCH (13:48)
[2024-02-17] MEDS: LEVOTHYROXINE SODIUM 25 MCG TAB PO SCH (13:48)
[2024-02-17] MEDS: CHOLECALCIFEROL (VITD3) 1,000UNIT=25mCg TAB PO SCH (13:49)
[2024-02-17] MEDS: ASPirin-EC 81 mg tab PO SCH (13:49)
[2024-02-17] MEDS: FUROSEMIDE 40 MG TAB PO SCH (13:49)
[2024-02-17] MEDS: cefTRIAXone 1GM/50ML D5W 50 ML IV ONE (13:50)
--- NOTE | 2024-02-17 17:26 | DVH ---
Exam: CT CT AB PEL WO CON-NO ORAL OR IV History: abdominal pain and tenderness r/o diverticulitis Comparison Study: CT CT CHEST/AB/PL W CON- IV ONLY on DOS: 08/21/22, CT CT AB PEL WITH ORAL CON ONLY on DOS: 08/17/22, ECIDC on DOS: 08/13/21 Technique: Multidetector spiral CT of the abdomen and pelvis was performed from lung bases to pubic symphysis. Imaging was performed without IV contrast. Axial, coronal and sagittal multiplanar reform ats were obtained from the axial data set by the technologist. Radiation dose : Abdomen/Pelvis: CTDIvol 14 mGy, DLP 708 mGy*cm. Findings: Evaluation of solid organs is limited due to lack of intravenous contrast use. Lung Bases: No acute or significant lung base finding. Normal heart size. No pleural or pericardial effusion. Liver: The liver is normal in size. No focal lesions. Gallbladder and biliary Tree: Gallbladder is surgically absent. Spleen: Unremarkable Pancreas: The pancreas is grossly normal in appearance. Adrenal Glands: Unremarkable Kidneys: Subcentimeter fatty lesion in the lower pole of the left kidney, likely angiomyolipoma. No h ydronephrosis or nephrolithiasis. Bladder: Grossly unremarkable for degree of distention. Bowel: The stomach is grossly normal in appearance. Small bowel and colon are normal in caliber and d istribution. Normal appendix is visualized in the right lower quadrant without findings of appendici tis. Sigmoid diverticulosis. Ascites: Absent . Lymphadenopathy: No mesenteric, retroperitoneal or periportal lymphadenopathy. Abdominal wall and Mesentery: Unremarkable. Vasculature: Calcified atherosclerotic disease. Pelvic Organs: The uterus is surgically absent. Musculoskeletal: Levoscoliosis with associated multilevel degenerative disease. IMPRESSION: 1. No acute abdominal or pelvic findings. Diverticulosis. No evidence of acute diverticulitis. Subce ntimeter left renal angiomyolipoma Radiation optimization: All CT scans at this facility use at least one of these dose optimization shashi hniques: Automated exposure control mA and/or kV adjustment per patient size (includes targeted exams where dose is matched to clinical indication) or iterative reconstruction. HS:Y
[2024-02-17] MEDS ORDERED: levoFLOXacin 500MG 100 ML IV SCH (18:00)
--- NOTE | 2024-02-17 19:56 | DVHPNRES ---
Progress Note Date Seen: Feb 17, 2024 Resident Creating Document: SARINA CARRILLOEFRAÍN RESIDENT Medical Necessity Reason Pt with a Central, PICC or Fol: No Subjective Review of Systems Patient is a 83 year old female with a past medical history as described below came to the ED with the chief complaint of Dizziness. patient reports that since tuesday night she had 4 episodes of loose watery stools, brownish in color with no associated blood in stool, and diffuse abdominal pain and vomiting 2-3 episodes. She also reports cough with whitish phlegm since the past week. patient was feeling dizzy and when she checked her vitals, Heart rate was at 33 which was concerning to the patient and came to the hospital for further evaluation. Past medical history: Hypothyroidism s/p thyroidectomy, CAD, HTN, HLD, COPD, HFrEF, anxiety past surgical history: Cholecystectomy, hysterectomy, tonsillectomy, AICD, thyroidectomy Social history: denies smoking, alcohol, drug use Home medications: aspirin , lasix 40mg daily, metoprolol succinate 25mg daily, spironolactone 25mg daily, simvastatin, Kcl 20meq, [id number] bid, albuterol IN Review of systems patient is seen and examined at bedside A/O X 4. reports mild headache and diffuse abdominal pain Denies chest pain, dizziness, nausea, vomiting, diarrhoea Vitals stable, HR 65-90bpm, BP WNL. Objective vital signs Vital Sign Date Time Temp Pulse Resp B/P (MAP) Pulse Ox O2 Delivery O2 Flow Rate FiO2 02/17/24 18:40 94 Room Air 02/17/24 18:40 0 21 02/17/24 17:02 75 18 123/55 (77) 02/17/24 17:00 98.2 98.2 Total Intake and Output 02/16/24 02/16/24 02/17/24 15:00 23:00 07:00 Intake Total 100 ml 40 ml Balance 100 ml 40 ml medications Current Medications Medications Dose Ordered Sig/Kike Route Start Time Stop Time Status Last Admin Dose Admin Aspirin 81 mg DAILY PO 02/17/24 10:00 UNV Acetaminophen 650 mg Q6HP PRN PO 02/16/24 16:00 02/17/24 13:47 650 MG Lorazepam 0.5 mg Q6HP PRN PO 02/16/24 16:00 Ondansetron HCl 4 mg Q4HP PRN IV 02/16/24 16:00 02/17/24 01:32 4 MG Nitroglycerin 0.4 mg Q5MINP PRN SL 02/16/24 16:00 Albuterol 90 mcg BID PRN IN 02/16/24 16:00 UNV Alprazolam 0.25 mg BID PRN PO 02/16/24 16:00 02/17/24 01:32 0.25 MG Aspirin 81 mg DAILY PO 02/17/24 10:00 02/17/24 13:49 81 MG Furosemide 40 mg DAILY PO 02/17/24 10:00 02/17/24 13:49 40 MG Multivitamins/ Minerals 1 tab DAILY PO 02/17/24 10:00 02/17/24 13:48 1 TAB Potassium Chloride 20 meq DAILY PO 02/17/24 10:00 02/17/24 13:46 20 MEQ Spironolactone 25 mg DAILY PO 02/17/24 10:00 Hold Cholecalciferol 1,000 unit DAILY PO 02/17/24 10:00 02/17/24 13:49 1,000 UNIT Levothyroxine Sodium 75 mcg DAILY PO 02/17/24 10:00 02/17/24 13:48 75 MCG Pantoprazole Sodium 40 mg DAILY PO 02/17/24 10:00 02/17/24 13:47 40 MG Oxybutynin Chloride 10 mg BID PO 02/16/24 22:00 02/17/24 13:47 10 MG Albuterol 2.5 mg Q6HPRN PRN NEB 02/16/24 18:00 Ceftriaxone Sodium 50 ml @ 100 mls/hr DAILY@09 IV 02/18/24 09:00 Atorvastatin Calcium 40 mg HS PO 02/17/24 22:00 Examination Physical Examination Gen - no pallor, no icterus, no cyanosis, no clubbing, no LAD, no edema. Skin - Patients skin is warm and dry. HEENT - normocephalic, atraumatic, dry mucous membranes. Neck - full ROM, no LAD, no JVD. Pulmonary - B/L equal breath sounds heard, no crackles, no wheezing. cardiovascular - normal S1,S2 heard. no murmurs heard. peripheral pulses normal radial 2+, pedal 2+. capillary refill normal <2 secs. GI - soft abdomen with mild diffuse tenderness to palpation. no hepatospleenomegaly. Bowel sounds normoactive Neurological - Patient is A/O X 3. Bilateral upper extremity strength 5/5, bilateral lower extremity strength 5/5, no facial droop, normal speech, no sensory loss laboratory and microbiology Laboratory Tests 02/17/24 06:58 Test 02/17/24 06:58 Range/Units Serum Glucose 98 74-106 mg/dL Microbiology Date/Time Source Procedure Growth Status 02/17/24 03:10 Nose MRSA Screen - Final Complete Problem List/Assessment/Plan Problem List/Assessment/Plan Assessment and Plan # Acute Viral gastroenteritis # Dizziness # Dehydration # UTI likely acute cystitis # HFrEF ( LVEF 30%) with AICD # Cardiomegaly # Hypothyroidism # Overactive bladder - Judicious use of IV fluids as the patient has HFrEF - on ceftriaxone IV - Urine culture pending - CT abd/pelvis show no acute abdominal or pelvic findings, diverticulosis - recent AICD generator change - AICD assessment done - Cardiology consulted with , no further inpatient treatment recommended. - continued on home meds Goals of care discussed with the patient for over 23 mins. Full code Plan discussed with Plan discussed with: Patient My Orders My Orders Orders - MADDIE CARRILLO Procedure Category Date Status Time Covid19 Antigen [facility] LAB 02/17/24 Logged Rapid Influenza A&B LAB 02/17/24 Logged 08:40 Urine Bacterial TORIE 02/17/24 In Process Culture 08:53 Ceftriaxone 1gm/50ml PHA 02/18/24 In Process D5w (Rocephin) 09:00 Stool Wbc LAB 02/17/24 Logged 11:50 Orthostatic Vital ORDERS 02/17/24 Transmitted Signs 11:50 *Consult Dr. Hines CONS 02/17/24 Transmitted [place] 11:50 Atorvastatin (Lipitor) PHA 02/17/24 In Process 22:00 [place] To Assess ORDERS 02/17/24 Transmitted Pacemaker 14:30 Ct Ab Pel Wo Con-No CT 02/17/24 Resulted Oral Or Iv 16:47 Date of Service: Feb 17, 2024 Billing Provider: CARLYLE OSORIO MD Common Visit Codes: [id number] INP/OBS CARE(HIGH) MADDIE CARRILLO RESIDENT Feb 17, 2024 19:56 CARLYLE OSORIO MD Feb 20, 2024 09:12
[2024-02-17] MEDS: ATORVASTATIN 20 MG TAB PO SCH (20:44)
[2024-02-18] VITALS (9 sets, daily range): BP systolic 0–122; BP diastolic 32–64; PULSE 64–66; RESP 17–18; TEMP 97.7–98.3; O2SAT 92–95
[2024-02-18 07:05] LABS: Basophils # (auto) 0 10 ^3/uL (0-0.2); Basophils % (auto) 0.3 % (0.0-2.0); Eosinophils # (auto) 0.3 10 ^3/uL (0-0.8); Eosinophils % (auto) 3.7 % (0.0-7.0); Hematocrit 33.7 % (36.0-46.0); Hemoglobin 11.6 g/dL (12.2-16.2); Lymphocytes % (auto) 14.2 % (10.0-50.0); Mean Corpuscular Hemoglobin 35.5 pg (28.0-32.0); Mean Corpuscular Hgb Conc. 34.4 g/dL (32.0-36.0); Mean Corpuscular Volume 103.2 fL (80.0-100.0); Monocytes # (auto) 0.4 10 ^3/uL (0-1.3); Monocytes % (auto) 5.9 % (0.0-12.0); Neutrophils # (auto) 5.1 10 ^3/uL (1.6-8.6); Neutrophils % (auto) 75.9 % (37.0-80.0); Platelet Count (auto) 176 10^3/uL (140-450); Red Blood Cells 3.27 10^6/uL (4.0-5.20); Red Cell Distribution Width 12.5 % (11.8-14.3); White Blood Cell 6.7 10^3/uL (4.4-10.8)
[2024-02-18 07:15] LABS: Chloride 106 mmol/L (98-107); Sodium 142 mmol/L (136-145)
[2024-02-18 07:16] LABS: Anion Gap 7 (5-15); Carbon Dioxide 29 mmol/L (20-31)
[2024-02-18 07:17] LABS: Calcium 9.2 mg/dL (8.7-10.4)
[2024-02-18 07:21] LABS: BUN/Creatinine Ratio 14.4 (10.0-20.0); Blood Urea Nitrogen 14 mg/dL (9-23); Glucose 102 mg/dL (74-106)
[2024-02-18 07:47] LABS: COVID19 ANTIGEN SOFIA FIA NEGATIVE (NEGATIVE); Rapid Influenza A Negative (Negative); Rapid Influenza B Negative (Negative)
[2024-02-18] MEDS: METOPROLOL SUCCINATE XL 50 MG TAB PO SCH (10:32)
[2024-02-18] MEDS: cefTRIAXone 1GM/50ML D5W 50 ML IV SCH (10:33)
[2024-02-18] MEDS ORDERED: CEFP200T15 PO (12:41)
--- NOTE | 2024-02-18 15:25 | DVHDSRES ---
Discharge Summary Date of Admission Resident Creating Document: MAGO DAVENPORT RESIDENT Feb 16, 2024 at 15:51 Date of Discharge: Feb 18, 2024 Admitting Diagnosis UTI Labs/Diagnostic Data: Laboratory Results Test 02/18/24 06:28 02/18/24 06:20 02/17/24 06:58 02/17/24 04:40 White Blood Count 6.7 10^3/uL (4.4-10.8) Red Blood Count 3.27 10^6/uL (4.0-5.20) Hemoglobin 11.6 g/dL (12.2-16.2) Hematocrit 33.7 % (36.0-46.0) Mean Corpuscular Volume 103.2 fL (80.0-100.0) Mean Corpuscular Hemoglobin 35.5 pg (28.0-32.0) Mean Corpuscular Hemoglobin Concent 34.4 g/dL (32.0-36.0) Red Cell Distribution Width 12.5 % (11.8-14.3) Platelet Count 176 10^3/uL (140-450) Mean Platelet Volume 9.4 fL (6.9-10.8) Neutrophils (%) (Auto) 75.9 % (37.0-80.0) Lymphocytes (%) (Auto) 14.2 % (10.0-50.0) Monocytes (%) (Auto) 5.9 % (0.0-12.0) Eosinophils (%) (Auto) 3.7 % (0.0-7.0) Basophils (%) (Auto) 0.3 % (0.0-2.0) Neutrophils # (Auto) 5.1 10 ^3/uL (1.6-8.6) Lymphocytes # (Auto) 1.0 10 ^3/uL (0.4-5.4) Monocytes # (Auto) 0.4 10 ^3/uL (0-1.3) Eosinophils # (Auto) 0.3 10 ^3/uL (0-0.8) Basophils # (Auto) 0 10 ^3/uL (0-0.2) Nucleated Red Blood Cells 0.0 % Sodium Level 142 mmol/L (136-145) Potassium Level 4.0 mmol/L (3.5-5.1) Chloride Level 106 mmol/L (98-107) Carbon Dioxide Level 29 mmol/L (20-31) Anion Gap 7 (5-15) Blood Urea Nitrogen 14 mg/dL (9-23) Creatinine 0.97 mg/dL (0.550-1.02) Glomerular Filtration Rate Calc 58 mL/min (>90) BUN/Creatinine Ratio 14.4 (10.0-20.0) Serum Glucose 102 mg/dL (74-106) Calcium Level 9.2 mg/dL (8.7-10.4) Influenza Type A Antigen Negative (Negative) Influenza Type B Antigen Negative (Negative) SARS-CoV-2 Antigen (Rapid) Negative (NEGATIVE) Total Bilirubin 1.4 mg/dL (0.2-1.0) Aspartate Amino Transferase (AST) 11 U/L (13-40) Alanine Aminotransferase (ALT) 12 U/L (7-40) Alkaline Phosphatase 75 U/L (46-116) Total Protein 5.8 g/dL (5.7-8.2) Albumin 3.8 g/dL (3.2-4.8) Urine Color Colorless (Yellow) Urine Clarity Clear (Clear) Urine pH 5.5 (5.0-9.0) Urine Specific [place] 1.004 (1.001-1.035) Urine Protein Negative (Negative) Urine Ketones Negative (Negative) Urine Blood Negative /uL (Negative) Urine Nitrite Negative (Negative) Urine Bilirubin Negative (Negative) Urine Urobilinogen Normal mg/dL (Negative) Urine Leukocyte Esterase 3+ /uL (Negative) Urine RBC <1 /hpf (0 - 4) Urine WBC 69 /hpf (0 - 5) Urine Squamous Epithelial Cells Few /hpf (<5) Urine Bacteria Few /hpf (None Seen) Urine Glucose Normal mg/dL (Normal) Test 02/16/24 10:36 Troponin I High Sensitivity 11 ng/L (</=34) Lipase 23 U/L (12-53) Other Laboratory Tests 02/18/24 06:28 Brief Hx & Hospital Course: Patient is a 83 year old female with a past medical history as described below came to the ED with the chief complaint of Dizziness. patient reports that since tuesday night she had 4 episodes of loose watery stools, brownish in color with no associated blood in stool, and diffuse abdominal pain and vomiting 2-3 episodes. She also reports cough with whitish phlegm since the past week. patient was feeling dizzy and when she checked her vitals, Heart rate was at 33 which was concerning to the patient and came to the hospital for further evaluation. Past medical history: Hypothyroidism s/p thyroidectomy, CAD, HTN, HLD, COPD, HFrEF, anxiety past surgical history: Cholecystectomy, hysterectomy, tonsillectomy, AICD, thyroidectomy Social history: denies smoking, alcohol, drug use Home medications: aspirin , lasix 40mg daily, metoprolol succinate 25mg daily, spironolactone 25mg daily, simvastatin, Kcl 20meq, [id number] bid, albuterol IN Initial examination, patient is seen and examined at bedside, A/O X 4., reports mild headache and diffuse abdominal pain. Denies chest pain, dizziness, nausea, vomiting, diarrhoea. Vitals stable, HR 65-90bpm, BP WNL. Patient was cleared by Cardiology. Patient has had significant clinical improvement, denied any significant chest pain, dizziness, diarrhea. Abdominal pain was mostly suprapubic, patient was noted to have a UTI, antibiotics were started, urine culture was gathered. CT abdomen ruled out any acute abdomen. Physical examination as below: Gen - no pallor, no icterus, no cyanosis, no clubbing, no LAD, no edema. Skin - Patients skin is warm and dry. HEENT - normocephalic, atraumatic, dry mucous membranes. Neck - full ROM, no LAD, no JVD. Pulmonary - B/L equal breath sounds heard, no crackles, no wheezing. cardiovascular - normal S1,S2 heard. no murmurs heard. peripheral pulses normal radial 2+, pedal 2+. capillary refill normal <2 secs. GI - soft abdomen with mild diffuse tenderness to palpation. no hepatospleenomegaly. Bowel sounds normoactive Neurological - Patient is A/O X 3. Bilateral upper extremity strength 5/5, bilateral lower extremity strength 5/5, no facial droop, normal speech, no sensory loss Discharge plan: Patient will be discharged home on continue home medications as prescribed. She will continue taking cefpodoxime 200 mg p.o. b.i.d. for next seven days. Patient's we will follow with her PCP within 1-2 weeks. Patient was counseled on lifestyle modifications. She verbalized understanding and agree with this plan, we spent over 30 minutes explaining the plan. Plan discussed with Dr. Baires Consults/Reason for consult Cardiology was consulted due to chest pain Operations or Procedures EKG Name: JONG BAKER Acct: [id number] [place] [id number] ELECTROCARDIOGRAM REPORT PATIENT: JONG BAKER ACCT: [id number] : 1940 LOC: [facility]CENTR [facility] AGE / SEX: 83 / F ADM STATUS: ADM IN SERVICE 1042 UNIT: [id number] ORDERING PHYSICIAN: CORTEZ MCMILLAN MD PROCEDURE(s): EKG - ELECTROCARDIGRAM ORDER NUMBER(s): [id number], ACCESSION NUMBER(s): [id number] [facility] Test Date: 2024-02-16 Test Time: 09:59:46 Pat Name: JONG BAKER Department: ED Room: [facility] Gender: F Deputy Of Counter Intelligence: CHRISTA : 1940 Requested By: CORTEZ MCMILLAN Order Number: [id number] Reading MD: Zay Méndez Measurements Intervals [place] Rate: 82 P: 0 [place]: 51 QRS: 252 QRSD: 130 T: 115 QT: 452 QTc: 528 Interpretive Statements Ventricular-paced complexes No further analysis attempted due to paced rhythm Electronically Signed On 02-17-2024 12:50:09 PST by Zay Méndez Please click the below link to view image of tracing. DICTATED BY:ZAY MÉNDEZ Sr., MD DICTATED DATE/TIME:02/16/24 0959 ELECTRONICALLY SIGNED BY:ZAY MÉNDEZ Sr., MD 02/17/24 1250 ELECTRONICALLY CO-SIGNED BY: [place] [address] Ph: [phone] DIAGNOSTIC IMAGING Diagnostic Imaging Report : [id number] Signed PATIENT: JONG BAKER ACCT: [id number] UNIT: [id number] : 1940 LOC: ER ROOM / BED: / AGE / SEX: 83 / F ADM STATUS: REG ER SERVICE 1528 ORDERING PHYSICIAN: ERNESTINE MCDONALD PROCEDURE(s): CXR1 - CHEST XRAY 1 VIEW REASON: chest pain ORDER NUMBER(s): [id number], ACCESSION NUMBER(s): [id number] CHEST RADIOGRAPH Indication: chest pain Technique: Single frontal view of the chest was obtained Comparison: XY CHEST PORTABLE on DOS: 10/27/22, XY CHEST PORTABLE on DOS: 08/21/22 FINDINGS: Lines and Tubes: Left-sided approach biventricular lead AICD with intact leads. Lungs: No focal consolidation. Pleura: No effusion. No pneumothorax. Cardiomediastinal contours: Moderate cardiomegaly. Bones: No acute osseous abnormality. Surgical clips are noted over the lower neck. IMPRESSION: No acute cardiopulmonary disease. Moderate cardiomegaly. ATED BY: ROULA DAMON DO DICTATED DATE/TIME: 02/16/24 155 SIGNED BY: ROULA DAMON DO SIGNED DATE/TIME: 02/16/24 155 CC: [place] [address] Ph: [phone] DIAGNOSTIC IMAGING Diagnostic Imaging Report : [id number] Signed PATIENT: JONG BAKER ACCT: [id number] UNIT: [id number] : 1940 LOC: [facility] ROOM / BED: [address] [place] [address] AGE / SEX: 83 / F ADM STATUS: ADM IN SERVICE 1647 ORDERING PHYSICIAN: MADDIE CARRILLO RESIDENT PROCEDURE(s): ABPL - CT AB PEL WO CON-NO ORAL OR IV REASON: abdominal pain and tenderness r/o diverticulitis ORDER NUMBER(s): [id number], ACCESSION NUMBER(s): [id number] Exam: CT CT AB PEL WO CON-NO ORAL OR IV History: abdominal pain and tenderness r/o diverticulitis Comparison Study: CT CT CHEST/AB/PL W CON- IV ONLY on DOS: 08/21/22, CT CT AB PEL WITH ORAL CON ONLY on DOS: 08/17/22, ECIDC on DOS: 08/13/21 Technique: Multidetector spiral CT of the abdomen and pelvis was performed from lung bases to pubic symphysis. Imaging was performed without IV contrast. Axial, coronal and sagittal multiplanar reformats were obtained from the axial data set by the technologist. Radiation dose : Abdomen/Pelvis: CTDIvol 14 mGy, DLP 708 mGy*cm. Findings: Evaluation of solid organs is limited due to lack of intravenous contrast use. Lung Bases: No acute or significant lung base finding. Normal heart size. No pleural or pericardial effusion. Liver: The liver is normal in size. No focal lesions. Gallbladder and biliary Tree: Gallbladder is surgically absent. Spleen: Unremarkable Pancreas: The pancreas is grossly normal in appearance. Adrenal Glands: Unremarkable Kidneys: Subcentimeter fatty lesion in the lower pole of the left kidney, likely angiomyolipoma. No hydronephrosis or nephrolithiasis. Bladder: Grossly unremarkable for degree of distention. Bowel: The stomach is grossly normal in appearance. Small bowel and colon are normal in caliber and distribution. Normal appendix is visualized in the right lower quadrant without findings of appendicitis. Sigmoid diverticulosis. Ascites: Absent . Lymphadenopathy: No mesenteric, retroperitoneal or periportal lymphadenopathy. Abdominal wall and Mesentery: Unremarkable. Vasculature: Calcified atherosclerotic disease. Pelvic Organs: The uterus is surgically absent. Musculoskeletal: Levoscoliosis with associated multilevel degenerative disease. IMPRESSION: 1. No acute abdominal or pelvic findings. Diverticulosis. No evidence of acute diverticulitis. Subcentimeter left renal angiomyolipoma Radiation optimization: All CT scans at this facility use at least one of these dose optimization techniques: Automated exposure control mA and/or kV adjustment per patient size (includes targeted exams where dose is matched to clinical indication) or iterative reconstruction. HS:Y ATED BY: HUMPHREY STEINER MD DICTATED DATE/TIME: 02/17/241722 SIGNED BY: HUMPHREY STEINER MD SIGNED DATE/TIME: 02/17/241722 CC: Condition at Discharge: Guarded Final Diagnosis/Problems List # Acute Viral gastroenteritis # Dizziness # Dehydration # UTI likely acute cystitis # HFrEF ( LVEF 30%) with AICD # Cardiomegaly # Hypothyroidism # Overactive bladder Discharge Disposition: Home Discharge Instruct/Medications Diet: Cardiac 2g Na,low cholest Activity: No Restrictions, As Tolerated Follow Up/Referral: FU WITH PCP IN 1 WEEK Medications: continue home meds as prescibed in emr Discharge Statement: "Patient was advised to return to the ER or call 911 if any headaches, dizziness, shortness of breath, chest pain, abdominal pain, bleeding, fevers, or worsening of medical condition. Patient was counseled about treatment plan, medications, possible side effects, patientverbalized understanding. All questions were answered to the best of my ability. This discharge took greater then 30 minutes in planning, reviewing documentation, counseling the patient, and discussing with other team members." ASSESSMENT ASSESSMENT Assessment UTI Date of Service: Feb 18, 2024 Billing Provider: SREE BAIRES MD Common Visit Codes: 32414-PIJ/OBS DISCH DAY >30min MAGO DAVENPORT RESIDENT Feb 18, 2024 15:25 SREE BAIRES MD Feb 18, 2024 20:08
--- NOTE | 2024-02-20 14:05 | DVHPN2 ---
Progress Note - Dictate Date Seen: Feb 18, 2024 Medical Necessity Reason Pt with a Central, PICC or Fol: No Subjective PT WITH CHEST PAIN NEGATIVE TROPONIN [facility] 0N 04/30 * Coronary angiography showed no flow restrictive lesions in the left anterior descending artery, left main right coronary artery as well as the circumflex territory. * Ventriculogram showed the patient with EF around 30% with an LVEDP of 11-12 mmHg with no gradient across the aortic valve. * Right heart catheterization showed MARLON pressure of 5, RV pressure of 37/5, PA pressure of 37/15 and a capillary wedge pressure of 10. NOW WITH ABD PAIN NON SPECIFIC CLINICAL EXAMINATION ON 01/28 PT HAD BiV AICD GENERATOR CHANGE UA SHOWS LEUKOCYTE vital signs Vital Sign Date Time Temp Pulse Resp B/P (MAP) Pulse Ox O2 Delivery O2 Flow Rate FiO2 02/18/24 17:01 98.1 65 18 122/64 (83) 95 98.1 02/18/24 10:00 Room Air* 0 21 medications Current Medications Medications Dose Ordered Sig/Kike Route Start Time Stop Time Status Last Admin Dose Admin Aspirin 81 mg DAILY PO 02/17/24 10:00 UNV Albuterol 90 mcg BID PRN IN 02/16/24 16:00 UNV objective HEENT: Pupils are reactive. Funduscopic exam is benign. Sclerae anicteric. No exudates noted. Tympanic membranes are negative. Oral mucosa moist. Posterior pharynx without any exudates. NECK: Supple. No nuchal rigidity. No cervical adenopathy, no supraclavicular adenopathy, no axillary adenopathy. Carotid pulses are 2+ symmetrical, normal upstroke and contour. No JVD appreciated. Thyroid is within normal limits. PULMONARY: Clear to auscultation. No rhonchi, no wheezes, no egophony. CARDIOVASCULAR: Regular rate without S3, without S4. PMI is diffuse, however. ABDOMEN: Soft, nontender, normal bowel sounds. NEUROLOGIC: The patient is intact. laboratory and microbiology Laboratory Tests 02/18/24 06:28 Test 02/18/24 06:28 Range/Units Serum Glucose 102 74-106 mg/dL Problem List CHEST PAIN NEGATIVE TROPONIN C 0N 04/30 * Coronary angiography showed no flow restrictive lesions in the left anterior descending artery, left main right coronary artery as well as the circumflex territory. * Ventriculogram showed the patient with EF around 30% with an LVEDP of 11-12 mmHg with no gradient across the aortic valve. * Right heart catheterization showed MARLON pressure of 5, RV pressure of 37/5, PA pressure of 37/15 and a capillary wedge pressure of 10. NOW WITH ABD PAIN NON SPECIFIC CLINICAL EXAMINATION ON 01/28 PT HAD BiV AICD GENERATOR CHANGE UA SHOWS LEUKOCYTE HX OF HFrEF DILATED CM Assessment/Plan TRAET FOR UTI MAY DC HOME Plan discussed with: Patient DONNA MANN MD Feb 20, 2024 14:05
== END 2024-02-18 17:35 | disposition home or self-care (01) | DRG 690 ==
LOC: ER 09:55 → EDBD 09:55 → EDUNIT# 09:55 → TELE 15:51 → TELE-CENTR 23:06
PROVIDERS: ADMIT Student in an Organized Health Care Education/Training Program; ATTEND Student in an Organized Health Care Education/Training Program
DX: N30.00 Acute cystitis without hematuria (principal); I50.22 Chronic systolic (congestive) heart failure; I42.0 Dilated cardiomyopathy; A08.4 Viral intestinal infection, unspecified; I25.10 Atherosclerotic heart disease of native coronary artery without angina pectoris; J44.9 Chronic obstructive pulmonary disease, unspecified; Z20.822 Contact with and (suspected) exposure to COVID-19; F41.9 Anxiety disorder, unspecified; I11.0 Hypertensive heart disease with heart failure; E78.5 Hyperlipidemia, unspecified; E86.0 Dehydration; N32.81 Overactive bladder; R42 Dizziness and giddiness; E89.0 Postprocedural hypothyroidism; Z88.6 Allergy status to analgesic agent; Z88.5 Allergy status to narcotic agent; Z88.1 Allergy status to other antibiotic agents; Z88.0 Allergy status to penicillin; Z95.810 Presence of automatic (implantable) cardiac defibrillator; Z90.710 Acquired absence of both cervix and uterus; Z90.49 Acquired absence of other specified parts of digestive tract; Z82.3 Family history of stroke; Z87.891 Personal history of nicotine dependence
CPT/HCPCS: 36415; 71045; 74176; 80048; 80053; 81001; 83690; 84484; 85025; 87081; 87086; 87426; 87804; 93005; 96365; 96375; 99291; G0378; J2405

== ENCOUNTER 2024-11-08 10:51 | Outpatient (CLI) | payer MEDICARE ==
[2024-11-08 10:20] VITALS: BP 132/61; PULSE 68; RESP 20; O2SAT 94
[~2024-11-08 10:51] MED LIST changes: +CEFP200T15 PO
[2024-11-08 12:29] VITALS: BP 119/59; PULSE 65; RESP 20; O2SAT 95
== END 2024-11-08 17:00 | disposition home or self-care (01) ==
LOC: CHF HDHVI 10:51
PROVIDERS: ATTEND Internal Medicine Cardiovascular Disease
DX: R00.0 Tachycardia, unspecified (principal)
CPT/HCPCS: 93005; G0463